=== PATIENT | male | born 1935 | race Caucasian/White ===

== ENCOUNTER → 2016-10-01 | Outpatient (CLI) | payer MEDICARE, BC ==
--- NOTE | 2016-10-01 11:46 | PN ---
DATE OF SERVICE: 10/01/2016 A 81-year-old gentleman who has been followed in the Sleep Center for treatment of obstructive sleep apnea-hypopnea syndrome. Patient had home sleep apnea test at the end of 2015, which showed apnea-hypopnea index 19.3 with oxygen desaturation to 76%. Then he had CPAP titration and it showed that pressure 11 is sufficient for correction of respiratory abnormalities. Patient received new CPAP unit and I checked his CPAP unit today. He is using her equipment 100% for more than 4 hours with a pressure 11 cm of water. He does not use any ramp. Apnea-hypopnea index with the equipment he is 1.3 for the last 2 months, which is perfect. Leak is up to 14 L/min which is in reasonable range. [place] Sleepiness Scale today is 4. MEDICATIONS: Levothyroxine, allopurinol, amlodipine, metoprolol, Benazepril, pravastatin. During physical exam, patient in no distress. BP 159/70, HR 70, RR 16. Weight 293. Temp 97.4, oxygen saturation at room air 95%. HEENT: Oropharynx extremely low soft palate. ABDOMEN: Obese. EXTREMITIES: 1+ ankle edema. LUNGS: Clear. HEART: S1, S2, irregular, slightly decreased amplitude of tones. NECK: Supple. No JVD. Thyroid is not palpable. ABDOMEN: Soft and nontender. Bowel sounds are present. No organomegaly appreciated. WOUND CARE RN: Awake, alert, and oriented x3. Cranial nerves 2 to 7 intact. There is no fasciculation or atrophy noted. No focal deficits observed. IMPRESSION: 1. Obstructive sleep apnea-hypopnea syndrome on control with CPAP at 11 cm of water. Patient demonstrated 100% compliance with treatment benefiting from treatment. 2. Obesity. 3. Hypertension. 4. Swelling of the legs. 5. Status post total knee replacement. 6. Hyperlipidemia. 7. Hypothyroidism. 8. History of anxiety. PLAN: 1. Continue treatment with CPAP every night for the whole night. 2. Losing weight. 3. Sleep hygiene with regular time in bed for at least 8 hours. 4. No driving if feeling any sleepiness. 5. Prescription for all necessary CPAP supplies, including mask, tube, filters. 6. Followup visit in 1 year. Thank you very much for allowing me to participate in the management of your patient. Sincerely, Marco Antonio Myers MD, PhD, FAASM. Diplomat of [employer], Sleep Medicine Board by [employer] of [employer] Medicine Welfare Director of [facility] [place]
== END | disposition home or self-care (01) ==
LOC: SLEEP 10:20
PROVIDERS: ATTEND Internal Medicine
DX: G47.33 Obstructive sleep apnea (adult) (pediatric) (principal); E66.9 Obesity, unspecified; I10 Essential (primary) hypertension; R60.9 Edema, unspecified; Z96.659 Presence of unspecified artificial knee joint; E03.9 Hypothyroidism, unspecified; F41.9 Anxiety disorder, unspecified; Z79.899 Other long term (current) drug therapy

== ENCOUNTER → 2017-09-30 | Outpatient (CLI) | payer MEDICARE, BC ==
--- NOTE | 2017-09-30 11:07 | PN ---
PROGRESS NOTE FOLLOW-UP VISIT DATE OF SERVICE: 09/30/2017 An 82-year-old gentleman had been followed in sleep center for treatment of obstructive sleep apnea-hypopnea syndrome. The patient is on treatment with CPAP for more than 10 years. Continue his treatment successfully every night. Recently he received new CPAP unit. No problem with the usage of the machine with regarding of pressure or humidification. Sometimes mask may go off the nose. He is using Vivar FX nasal pillow mask. I checked his CPAP unit. CPAP pressure 11 cm of water. The patient does not use any ramp. Usage is 100% of the time more than 4 hours, average 8.2 hours. Leak is 12 L/minute, which is normal range. Apnea-hypopnea index for the last month is only 1.2, which is perfect. [place] Sleepiness Scale today is 4, which is normal. MEDICATIONS: Levothyroxine, allopurinol, amlodipine, metoprolol, benazepril, pravastatin. PHYSICAL EXAM: During physical exam, patient in no distress. VITAL SIGNS: BP 155/75, HR 66, RR 16, height 5 feet 9 inches, weight 282.2, which is about 10 pounds less than 1 year ago, BMI 41.6, oxygen saturation room air 96%. HEENT: PERRLA, EOMI. Oropharynx low position of soft palate. NECK: Supple, no JVD. Thyroid is not palpable. LUNGS: Clear to percussion and to auscultation. Good air exchange. No wheezing or rhonchi. HEART: S1, S2 regular. No murmurs, gallops, or rubs. ABDOMEN: Obese. EXTREMITIES: Up to 1+ ankle edema. TRIPLE VALVE MECHANIC: Awake, alert, and oriented X3. Cranial nerves 2 to 7 intact. There is no fasciculation or atrophy. noted. No focal deficits observed. IMPRESSION: 1. Obstructive sleep apnea-hypopnea syndrome, on full control with CPAP at 11 cm of water. Patient demonstrated 100% compliance with treatment and benefitting from treatment. 2. Hypertension. 3. Obesity. Patient lost 10 pounds since previous visit. 4. Status post total knee replacement on the left side. 5. Hyperlipidemia. 6. Hypothyroidism. 7. History of anxiety. PLAN: 1. Continue treatment with CPAP every night. 2. Continue losing weight. 3. Sleep hygiene with regular time in bed for at least 7-1/2 to 8 hours. 4. No driving if feeling sleepiness. 5. Prescription for all necessary CPAP supplies including mask, tube, filters. 6. Follow-up visit in one year or earlier if patient has any problems. Thank you very much for allowing me to participate in management of your patient. Sincerely, Marco Antonio Myers MD, PhD, FAASM Diplomat of [employer] Specialties [employer] Board of Internal Medicine Manager Administrative Services of [facility] [place] MMODL / SENTHILN: [id number] /
== END | disposition home or self-care (01) ==
LOC: SLEEP 09:59
PROVIDERS: ATTEND Internal Medicine
DX: G47.33 Obstructive sleep apnea (adult) (pediatric) (principal); I10 Essential (primary) hypertension; F41.9 Anxiety disorder, unspecified; E66.9 Obesity, unspecified; E78.5 Hyperlipidemia, unspecified; E03.9 Hypothyroidism, unspecified; Z68.41 Body mass index [BMI] 40.0-44.9, adult; Z96.652 Presence of left artificial knee joint; Z79.899 Other long term (current) drug therapy; Z99.89 Dependence on other enabling machines and devices

== ENCOUNTER → 2018-05-12 | Outpatient (CLI) | payer MEDICARE, BC ==
--- NOTE | 2018-05-12 10:54 | US ---
EXAMINATION TYPE: US kidneys/renal and bladder DATE OF EXAM: 05/12/2018 COMPARISON: NONE CLINICAL HISTORY: R94.4 ABN Kidney Function Studies. no symptoms per patient, states kidney went from 48% to 45% in a few days, elderly, obese patient EXAM MEASUREMENTS: Right Kidney: 10.7 x 4.3 x 5.4cm Left Kidney: 11.0 x 4.1 x 6.7 cm Right Kidney: No hydronephrosis or masses seen Left Kidney: No hydronephrosis or masses seen Bladder: wnl Bilateral Jets seen: only the left There is no evidence for hydronephrosis at this point in time. No nephrolithiasis is seen. No nate s are identified on images saved. Some cortical thinning is present bilaterally. The urinary bladder is anechoic. Distal left ureteral jet is seen. IMPRESSION: No hydronephrosis is evident bilaterally.
== END | disposition home or self-care (01) ==
LOC: RADUSWWP 09:04
PROVIDERS: ATTEND Family Medicine
DX: R94.4 Abnormal results of kidney function studies (principal)
CPT/HCPCS: 76770

== ENCOUNTER → 2019-09-21 | Outpatient (CLI) | payer MEDICARE, BC ==
--- NOTE | 2019-09-21 11:12 | SFUN ---
SLEEP CENTER FOLLOW UP NOTE DATE OF SERVICE: 09/21/2019 This 84-year-old gentleman had been followed in the Sleep Center for treatment of obstructive sleep apnea-hypopnea syndrome. The patient successfully continuing to use his CPAP equipment every night for the whole night without significant problems related to mask fitting, pressure or humidification. No snoring with the machine. He is getting all his supplies in time. [place] Sleepiness Scale today is 4, which is normal. MEDICATIONS: Pravastatin, amlodipine, benazepril, hydralazine, metoprolol, allopurinol, furosemide, levothyroxine, vitamin D3, aspirin, saw palmetto, Tylenol. I checked the patient CPAP unit. CPAP pressure is 11 cm of water. Usage is 30 out of 30 nights for more than 4 hours with average usage 8.4 hours, which is great compliance. Leak 12 L/minute, which is normal range. Apnea-hypopnea index 2.7, which is perfect. PHYSICAL EXAMINATION: During physical exam, patient in no distress. VITAL SIGNS: BP 139/61, HR 64, RR 16, height 5 feet 10 inches, weight 295.2, body mass index 42.3, which is 10 pounds more than during the visit one year ago, temperature 97.8, oxygen saturation at room air 95%. HEENT: PERRLA, EOMI. Oropharynx extremely low position of soft palate. Mallampati 4. NECK: Supple, no JVD. Thyroid is not palpable. LUNGS: Clear to percussion and to auscultation. Good air exchange. No wheezing or rhonchi. HEART: S1, S2 regular. No murmurs, gallops, or rubs. ABDOMEN: Obese. EXTREMITIES: No clubbing or cyanosis. REALTIME REPORTER: Awake, alert, and oriented X3. Cranial nerves 2 to 7 intact. There is no fasciculation or atrophy. noted. No focal deficits observed. IMPRESSION: 1. Obstructive sleep apnea-hypopnea syndrome. Patient demonstrated 100% compliance with treatment. on full control with CPAP at 11 cm of water. 2. Obesity. Patient increased weight of 10 pounds. 3. Hypertension. 4. Status post total left knee replacement. 5. Hypothyroidism. 6. Hyperlipidemia. 7. History of anxiety. PLAN: 1. Patient will continue to use CPAP equipment every night for the whole night with the same level of pressure. 2. Losing weight. 3. I will maintain all necessary prescriptions for CPAP supplies including mask, tube, filters. 4. Precautions related to driving. No driving if feeling sleepiness. 5. Follow-up visit in 1 year or earlier if patient has any problems. Thank you very much for allowing me to participate in management of your patient. Sincerely, Marco Antonio Myers MD, PhD, FAASM Diplomat of [employer] Specialties [employer] Board of Internal Medicine Picker Feeder of [facility] [place] MMODL / SENTHILN: [id number] /
== END | disposition home or self-care (01) ==
LOC: SLEEP 09:58
PROVIDERS: ATTEND Internal Medicine
DX: G47.33 Obstructive sleep apnea (adult) (pediatric) (principal); E66.9 Obesity, unspecified; I10 Essential (primary) hypertension; E03.9 Hypothyroidism, unspecified; E78.5 Hyperlipidemia, unspecified; Z96.652 Presence of left artificial knee joint; Z99.89 Dependence on other enabling machines and devices; Z86.59 Personal history of other mental and behavioral disorders; Z68.41 Body mass index [BMI] 40.0-44.9, adult; Z79.82 Long term (current) use of aspirin; Z79.899 Other long term (current) drug therapy

== ENCOUNTER → 2020-09-26 | Outpatient (CLI) | payer MEDICARE, BC ==
--- NOTE | 2020-09-26 11:47 | SFUN ---
SLEEP CENTER FOLLOW UP NOTE DATE OF SERVICE: 09/26/2020 This 85-year-old gentleman had been followed in Sleep Center for treatment of obstructive sleep apnea-hypopnea syndrome. Patient continued to use his CPAP equipment every night for the whole night getting his supplies less than before according to patient. [place] Sleepiness Scale today is 3, which is normal. I checked patient's CPAP unit. CPAP pressure is 11 cm of water. Usage is 30 out of 30 nights for more than 4 hours with average usage 8.7 hours per night. Leak is 11 L/minute. Apnea-hypopnea index is only 1.7, which is perfect. MEDICATIONS: Pravastatin 80 mg once a day, amlodipine 5 mg once a day, benazepril 20 mg once a day, hydralazine 25 mg twice a day, metoprolol 50 mg twice a day, Allopurinol 300 mg once a day, furosemide 20 mg once a day, levothyroxine 50 mcg once a day, vitamin D3, saw palmetto. PHYSICAL EXAMINATION: GENERAL: Patient in no distress. VITAL SIGNS: BP 121/74, HR 68, RR 15, height 5 feet 10-1/4 inches, weight 297.8 pounds, BMI 42.4, temperature 98.0, oxygen saturation at room air 95%. HEENT: PERRLA, EOMI. Oropharynx extremely low position of soft palate. Mallampati 4. NECK: Supple, no JVD. Thyroid is not palpable. LUNGS: Clear to percussion and to auscultation. Good air exchange. No wheezing or rhonchi. HEART: S1, S2 regular. No murmurs, gallops, or rubs. ABDOMEN: Obese. EXTREMITIES: No clubbing or cyanosis. DIRECTOR FIXED INCOME: Awake, alert, and oriented X3. Cranial nerves 2 to 7 intact. There is no fasciculation or atrophy. noted. No focal deficits observed. IMPRESSION: 1. Obstructive sleep apnea-hypopnea syndrome. Patient demonstrated 100% compliance with treatment, benefitting with treatment on CPAP. 2. Obesity. 3. Hypertension. 4. Status post total left knee replacement. 5. Hypothyroidism. 6. Hyperlipidemia. 7. History of anxiety. PLAN: 1. Patient will continue to use PAP equipment every night for the whole night. 2. Sleep hygiene with regular time in bed for at least 7-1/2 to 8 hours. 3. Precautions related to driving. No driving if feeling sleepiness. 4. I will maintain all necessary prescription for PAP supplies including mask, tube, filters. 5. Watching weight. 6. No driving if feeling sleepiness. 7. Follow-up visit in 6 months or earlier if patient has any problems. Thank you very much for allowing me to participate in management of your patient. Sincerely, Marco Antonio Myers MD, PhD, FAASM Diplomat of [employer] Board of Medical Specialties Finnish Board of Internal Medicine Oil [employer] And Pipe Tester of [facility] [place] MMODL / IJN: [id number] /
== END | disposition home or self-care (01) ==
LOC: SLEEP 09:54
PROVIDERS: ATTEND Internal Medicine
DX: G47.33 Obstructive sleep apnea (adult) (pediatric) (principal); E66.9 Obesity, unspecified; I10 Essential (primary) hypertension; E78.5 Hyperlipidemia, unspecified; Z96.652 Presence of left artificial knee joint; E03.9 Hypothyroidism, unspecified; Z99.89 Dependence on other enabling machines and devices; Z79.899 Other long term (current) drug therapy; Z79.890 Hormone replacement therapy; Z86.59 Personal history of other mental and behavioral disorders

== ENCOUNTER → 2021-05-15 | Outpatient (CLI) | payer MEDICARE, BC ==
--- NOTE | 2021-05-15 11:22 | SFUN ---
SLEEP CENTER FOLLOW UP NOTE DATE OF SERVICE: 05/15/2021 This 85-year-old gentleman has been followed in Sleep Center for treatment of obstructive sleep apnea-hypopnea syndrome. Patient continues to use his CPAP equipment every night for the whole night. He complains of feeling dryness in the mouth sometimes in the morning. He is using a Vivar FX nasal pillow mask and he agreed that he probably opens his mouth during sleep. He has a chinstrap, but he does not use it. I checked his CPAP unit. Pressure is 11 cm of water. Usage is 100% of nights for more than 4 hours, average 8.2 hours per night. Leak is 19 L/minute. Apnea-hypopnea index is 1.5, which is absolutely normal. MEDICATIONS: 1. Pravastatin 80 mg once a day. 2. Amlodipine 5 mg once a day. 3. Benazepril 20 mg once a day. 4. Hydralazine 25 mg twice a day. 5. Metoprolol 50 mg twice a day. 6. Allopurinol 300 mg once a day. 7. Furosemide 20 mg twice a day. 8. Levothyroxine 50 mcg once a day. PHYSICAL EXAMINATION: GENERAL: Pleasant patient in no distress. VITAL SIGNS: BP 157/71, HR 60, RR 18, height 5 feet 10 inches, weight 295 pounds. The patient lost 2 pounds compared to the previous visit. Body mass index 42.3, temperature 96.9, oxygen saturation at room air 95%. HEENT: PERRLA, EOMI, evaluation of oropharynx showed tongue protrudes midline. Extremely low position of soft palate; Mallampati IV. NECK: Supple, no JVD. Thyroid is not palpable. LUNGS: Clear to percussion and to auscultation. Good air exchange. No wheezing or rhonchi. HEART: S1, S2 regular. No murmurs, gallops, or rubs. ABDOMEN: Obese. EXTREMITIES: One plus ankle edema. OR RN: Awake, alert, and oriented X3. Cranial nerves 2 to 7 intact. There is no fasciculation or atrophy. noted. No focal deficits observed. PLAN: 1. We discussed the patient's necessity to use a chinstrap every night. 2. No dryness in the nose. The level of humidity is at 3, which is probably sufficient for the patient. 3. Patient will continue to use PAP equipment every night for the whole night. 4. Sleep hygiene with regular time in bed for at least 7-1/2 to 8 hours. 5. Precautions related to driving. No driving if feeling sleepiness. 6. I will maintain all necessary prescription for PAP supplies including mask, tube, filters. 7. Watching weight. 8. Follow-up visit in 6 months or earlier if patient has any problems. Thank you very much for allowing me to participate in the management of your patient. Sincerely, Marco Antonio Myers MD, PhD, FAASM Diplomat of [place] Board of [employer] Specialties Sleep Medicine Board of [place] Board of Internal Medicine Penal Officer of [facility] [place] MMODL / IJN: [id number] /
== END ==
LOC: SLEEP 10:10
PROVIDERS: ATTEND Internal Medicine
DX: G47.33 Obstructive sleep apnea (adult) (pediatric) (principal); Z99.89 Dependence on other enabling machines and devices

== ENCOUNTER → 2021-11-13 | Outpatient (CLI) | payer MEDICARE, BC ==
--- NOTE | 2021-11-13 12:11 | SFUN ---
SLEEP CENTER FOLLOW UP NOTE DATE OF SERVICE: 11/13/2021 This 86-year-old gentleman has been followed in Sleep Center for treatment of obstructive sleep apnea-hypopnea syndrome. The patient continues to use his CPAP equipment every night for the whole night. No snoring with the machine. [place] Sleepiness Scale today is 3. I checked his CPAP unit. The air filter is in acceptable condition. CPAP pressure is 11 cm of water. Usage is 30/30 nights for more than 4 hours, average 8.4 hours per night. Leak is 18 L/minute. Recently the patient complained of some leak from his mask, but after he replaced his mask he feels okay now. Apnea-hypopnea index is 2.4, which is in normal range. MEDICATIONS: 1. Pravastatin 80 mg once a day. 2. Amlodipine 5 mg once a day. 3. Benazepril 20 mg once a day. 4. Hydralazine 25 mg twice a day. 5. Metoprolol 50 mg twice a day. 6. Allopurinol 300 mg once a day. 7. Furosemide 20 mg two tablets for one day and three tablets every second day. 8. Levothyroxine 50 mcg once a day. PHYSICAL EXAMINATION: GENERAL: Pleasant patient in no distress. VITAL SIGNS: BP 121/53, HR 60, RR 16, weight 295. Height 5 feet 10 inches, temperature 97.8, oxygen saturation at room air 95%. HEENT: PERRLA, EOMI, evaluation of oropharynx showed tongue protrudes midline. Extremely low position of soft palate; Mallampati IV. NECK: Supple, no JVD. Thyroid is not palpable. LUNGS: Clear to percussion and to auscultation. Good air exchange. No wheezing or rhonchi. HEART: S1, S2 regular. No murmurs, gallops, or rubs. ABDOMEN: Obese. EXTREMITIES: One plus ankle edema. WIND TURBINE INSTALLER: Awake, alert, and oriented X3. Cranial nerves 2 to 7 intact. There is no fasciculation or atrophy. noted. No focal deficits observed. IMPRESSIONS: 1. SKYLAR, great compliance with treatment, benefiting from treatment. 2. HTN. 3. Obesity. 4. Hypothyroidism. 5. Hyperlipidemia. 6. History of anxiety. 7. S/p total left knee replacement. PLAN: 1. I again discussed with the patient the necessity of replacing the air filter at least every month. 2. Patient will continue to use PAP equipment every night for the whole night. 3. Sleep hygiene with regular time in bed for at least 7-1/2 to 8 hours. 4. Precautions related to driving. No driving if feeling sleepiness. 5. I will maintain all necessary prescription for PAP supplies including mask, tube, filters. 6. Watching weight. 7. Follow-up visit in 6 months or earlier if patient has any problems. Thank you very much for allowing me to participate in the management of your patient. Sincerely, Marco Antonio Myers MD, PhD, FAASM Diplomat of [place] [employer] of Medical Specialties Sleep Medicine Board of [place] Board of Internal Medicine Parcel Post Order Clerk of [facility] [place] MMODL / SENTHILN: [id number] / JOHNNY
== END ==
LOC: SLEEP 10:08
PROVIDERS: ATTEND Internal Medicine
DX: G47.33 Obstructive sleep apnea (adult) (pediatric) (principal); I10 Essential (primary) hypertension; E66.9 Obesity, unspecified; E03.9 Hypothyroidism, unspecified; E78.5 Hyperlipidemia, unspecified; F41.9 Anxiety disorder, unspecified; Z96.652 Presence of left artificial knee joint; Z79.890 Hormone replacement therapy; Z99.89 Dependence on other enabling machines and devices; Z87.891 Personal history of nicotine dependence

== ENCOUNTER → 2022-05-28 | Outpatient (CLI) | payer MEDICARE, BC ==
--- NOTE | 2022-05-28 12:34 | P.PN ---
Subjective DATE: [] FOLLOW UP VISIT. Patient with obstructive sleep apnea hypopnea syndrome return to sleep center for follow-up visit. Information from previous visit have been reviewed. Patient is using PAP equipment every night for the whole night, getting PAP supplies in time. The patient does not have significant problems with the mask, PAP unit and humidification. [place] sleepiness scale is 2. I checked information from PAP unit. PAP unit pressure 11 cm H2O. Usage is 100 % for more then 4 hours, average 8.2 hours per night. Leak is 28 l/m, which is in acceptable range. Apnea Hypopnea Index is 2.1, which is normal. MEDICATIONS:1. Pravastatin 80 mg once a day 2. Amlodipine 5 mg once a day 3. Benazepril 20 mg once a day 4. Hydralazine 25 mg twice a day 5. Metoprolol 50 mg twice a day 6. Allopurinol 300 mg once a day 7. Furosemide 20 mg twice a day 8. Levothyroxine 50 g once a day During physical exam: GENERAL: A pleasant patient without any distress. VITAL SIGNS: BP 160/67, HR 67, RR 18 , weight 294.8, temperature 97.5, oxygen saturation at room air 96 % . HEENT: PERRLA, EOMI.low position of soft palate, Mallapati 4 . NECK: Supple. No JVD. LUNGS: Clear to percussion and to auscultation. Good air exchange. No wheezing or rhonchi. HEART: S1, S2 regular. ABDOMEN: Soft and nontender.[] EXTREMITIES: No clubbing or cyanosis. HAIR ROOTING MACHINE OPERATOR: Awake, alert, and oriented x3. No focal deficit. Impressions: 1. Obstructive sleep apnea-hypopnea syndrome. Patient demonstrated great compliance with treatment, benefiting from treatment. 2. Hypertension. 3. Obesity. 4. Hypothyroidism. 5. Hyperlipidemia. 6. Status post total left knee replacement. 7. History of anxiety. Plan: 1. Continue using PAP equipment every night for the whole night. 2. To change air filter at least 1-2 times per month. 3. PAP unit should stay lower then position of the head. 4. Advised patient to remove all remaining water from humidifier canister daily and make it dry after each usage. Refill canister with fresh distilled water before each usage. 5. Sleep hygiene with regular time in bed for at least 8 hours. 6. Precautions related to driving. No driving if feel any sleepiness. 7. I will maintain prescription for PAP supplies including mask, tube, filters. 8. Follow up visit in 6 months or earlier if patient has any problems. 9. Watching weight. Thank you very much for allowing me to participate in the management of your patient. Marco Antonio Myers MD, PhD, FAASM. Diplomat of [employer] Board of Sleep Medicine, Sleep Medicine Board by [employer] Board of Internal Medicine It Support Technician of [facility] [place]
== END | disposition home or self-care (01) ==
LOC: SLEEP 10:09
PROVIDERS: ATTEND Internal Medicine
DX: G47.33 Obstructive sleep apnea (adult) (pediatric) (principal); I10 Essential (primary) hypertension; E66.9 Obesity, unspecified; E03.9 Hypothyroidism, unspecified; E78.5 Hyperlipidemia, unspecified; F41.9 Anxiety disorder, unspecified; Z99.89 Dependence on other enabling machines and devices; Z96.652 Presence of left artificial knee joint; Z79.890 Hormone replacement therapy

== ENCOUNTER → 2022-06-19 | Outpatient (CLI) | payer MEDICARE, BC | END | disposition home or self-care (01) | LOC: LABWHC1 07:14 | PROVIDERS: ATTEND Ophthalmology Ophthalmic Plastic and Reconstructive Surgery | DX: Z20.822 Contact with and (suspected) exposure to COVID-19 (principal); D48.5 Neoplasm of uncertain behavior of skin | CPT/HCPCS: U0003; U0005 ==

== ENCOUNTER → 2022-12-10 | Outpatient (CLI) | payer MEDICARE, BC ==
--- NOTE | 2022-12-10 10:56 | P.PN ---
Subjective DATE: 12/10/2022 FOLLOW UP VISIT. Patient with obstructive sleep apnea hypopnea syndrome return to sleep center for follow-up visit. Information from previous visit have been reviewed. Patient is using PAP equipment every night for the whole night, getting PAP supplies in time. The patient does not have significant problems with the mask, PAP unit and humidification. [place] sleepiness scale is 5, which is normal. I checked information from PAP unit and explaining to the patient. PAP unit pressure 11 cm H2O. Usage is 100 % for more then 4 hours, average 9 hours per night. Leak is 25 l/m, which is in acceptable range. Apnea Hypopnea Index is 1.6, which is normal. Air filter cover is broken. MEDICATIONS:1. Pravastatin 80 mg once a day 2. Levothyroxine 50 g once a day 3. Aspirin 81 mg once a day 4. Allopurinol 300 mg once a day 5. Hydralazine 25 mg once a day 6. Furosemide 20 mg 2 tablets once a day 7. Amlodipine 5 mg once a day 8. Benazepril 20 mg once a day During physical exam: GENERAL: A pleasant patient without any distress. VITAL SIGNS: BP 170/71, HR 100, RR 20, weight 285, temperature 97.7, oxygen saturation at room air 95 % . HEENT: PERRLA, EOMI.low position of soft palate, Mallapati 4 . NECK: Supple. No JVD. LUNGS: Clear to percussion and to auscultation. Good air exchange. No wheezing or rhonchi. HEART: S1, S2 regular. ABDOMEN: Soft and nontender. Obese EXTREMITIES: No clubbing or cyanosis. BRAIDER SETTER: Awake, alert, and oriented x3. No focal deficit. Impressions: 1. Obstructive sleep apnea-hypopnea syndrome. Patient demonstrated great compliance with treatment, benefiting from treatment. 2. Obesity, body mass index 42.0, patient lost 9 pounds since previous visit. 3. Hypertension. 4. Hypothyroidism. 5. Hyperlipidemia. 6. History of anxiety. 7. Status post total left knee replacement. Plan: 1. Continue using PAP equipment every night for the whole night. 2. To change air filter at least 1-2 times per month. 3. PAP unit should stay lower then position of the head. 4. Advised patient to remove all remaining water from humidifier canister daily and make it dry after each usage. Refill canister with fresh distilled water before each usage. 5. Sleep hygiene with regular time in bed for at least 8 hours. 6. Precautions related to driving. No driving if feel any sleepiness. 7. I will maintain prescription for PAP supplies including mask, tube, filters. 8. .Watching and losing weight. 9. Follow up visit in 6 months or earlier if patient has any problems. 10. Air filter, is broken, otherwise CPAP unit is working. We will replace CPAP unit is soreness it will be more then 5-year-old. Thank you very much for allowing me to participate in the management of your patient. Marco Antonio Myers MD, PhD, FAASM. Diplomat of [place] Board of Sleep Medicine, Sleep Medicine Board by [place] Board of Internal Medicine Dope Worker of [facility] [place]
== END ==
LOC: SLEEP 10:08
PROVIDERS: ATTEND Internal Medicine
DX: G47.33 Obstructive sleep apnea (adult) (pediatric) (principal); E03.9 Hypothyroidism, unspecified; E66.9 Obesity, unspecified; E78.5 Hyperlipidemia, unspecified; I10 Essential (primary) hypertension; Z68.41 Body mass index [BMI] 40.0-44.9, adult; Z79.899 Other long term (current) drug therapy; Z96.652 Presence of left artificial knee joint; Z99.89 Dependence on other enabling machines and devices; Z79.890 Hormone replacement therapy; Z87.891 Personal history of nicotine dependence
CPT/HCPCS: 99212

== ENCOUNTER → 2023-06-17 | Outpatient (CLI) | payer MEDICARE, BC ==
--- NOTE | 2023-06-17 11:08 | P.PN ---
Subjective DATE: 06/17/2023 FOLLOW UP VISIT. Patient with obstructive sleep apnea hypopnea syndrome return to sleep center for follow-up visit. Information from previous visit have been reviewed. Patient is using PAP equipment every night for the whole night, getting PAP supplies in time. The patient does not have significant problems with the mask, PAP unit and humidification. [place] sleepiness scale is 3, which is normal. I checked information from PAP unit. PAP unit pressure 11 cm H2O. Usage is 100 % for more then 4 hours, average 8.5 hours per night. Leak is 8.1 l/m, which is in acceptable range. Apnea Hypopnea Index is 1.4, which is normal. MEDICATIONS:1. Levothyroxine 50 g once a day 2. Pravastatin 80 mg once a day 3. Allopurinol 300 mg once a day 4. Amlodipine 5 mg once a day 5. Furosemide 40 mg per day 6. Benazepril 20 mg once a day 7. Hydralazine 25 mg 2 times a day During physical exam: GENERAL: A pleasant patient without any distress. VITAL SIGNS: BP 158/75, HR 95, RR 16, weight 297.4, temperature 97.6, oxygen saturation at room air 93 % . HEENT: PERRLA, EOMI.low position of soft palate, Mallapati 4 . NECK: Supple. No JVD. LUNGS: Clear to percussion and to auscultation. Good air exchange. No wheezing or rhonchi. HEART: S1, S2 regular. ABDOMEN: Soft and nontender. Obese EXTREMITIES: No clubbing or cyanosis. CRAB CATCHER: Awake, alert, and oriented x3. No focal deficit. Impressions: 1. Obstructive sleep apnea-hypopnea syndrome. Patient demonstrated great compliance with treatment, benefiting from treatment. 2. Obesity, patient increased his weight on 12 pounds comparing to the previous visit. 3. Hypertension. 4. Hypothyroidism. 5. Status post left knee replacement. 6. Hyperlipidemia. 7. History of anxiety. Plan: 1. Continue using PAP equipment every night for the whole night. 2. To change air filter at least 1-2 times per month. 3. PAP unit should stay lower then position of the head. 4. Advised patient to remove all remaining water from humidifier canister daily and make it dry after each usage. Refill canister with fresh distilled water before each usage. 5. Sleep hygiene with regular time in bed for at least 8 hours. 6. Precautions related to driving. No driving if feel any sleepiness. 7. I will maintain prescription for PAP supplies including mask, tube, filters. 8. Follow up visit in 6 months or earlier if patient has any problems. 9. Watching and losing weight. Thank you very much for allowing me to participate in the management of your patient. Marco Antonio Myers MD, PhD, FAASM. Diplomat of [place] [employer], Sleep Medicine Board by [place] [employer] [facility] [place]
== END ==
LOC: 3 N SLEEP 10:26
PROVIDERS: ATTEND Internal Medicine
DX: G47.33 Obstructive sleep apnea (adult) (pediatric) (principal); I10 Essential (primary) hypertension; E03.9 Hypothyroidism, unspecified; F41.9 Anxiety disorder, unspecified; E66.9 Obesity, unspecified; E78.5 Hyperlipidemia, unspecified; Z79.890 Hormone replacement therapy; Z79.899 Other long term (current) drug therapy; Z96.662 Presence of left artificial ankle joint; Z99.89 Dependence on other enabling machines and devices; Z87.891 Personal history of nicotine dependence
CPT/HCPCS: 99212

== ENCOUNTER 2023-07-22 14:21 | Emergency (ER) | payer MEDICARE, BC ==
[2023-07-22 14:43] VITALS: TEMP 99
[2023-07-22] MEDS ORDERED: VANCOMYCIN IV PER PHARMACY 1 EACH MISC MISCELLANE PRN (15:30)
[2023-07-22] MEDS ORDERED: KETOROLAC 15 MG/ML 1 ML VIAL IVP STA (15:30)
[2023-07-22] MEDS ORDERED: SODIUM CHLORIDE 0.9% 1,000 ML IV STA (15:30)
[2023-07-22] MEDS ORDERED: ACETAMINOPHEN TAB 500 MG TAB PO STA (15:30)
[2023-07-22] MEDS ORDERED: AMPICILLIN-SULBACTAM 3 GM in SODIUM CHLORIDE 0.9% 100 ML IVPB STA (15:30)
[2023-07-22] MEDS ORDERED: DEXAMETHASONE SOD PHOSPHATE 10 MG/ML 1 ML VIAL IVP STA (15:30)
--- NOTE | 2023-07-22 15:33 | ED ---
Eye Problem HPI - General Chief complaint: Recheck/Abnormal Lab/Rx Stated complaint: facial swelling Time Seen by Provider: 07/22/23 15:12 Source: patient, RN notes reviewed, old records reviewed Mode of arrival: ambulatory Limitations: no limitations - History of Present Illness Initial comments: This is a 88-year-old male to the emergency department for evaluation. Patient presents with fever and significant facial swelling which started adjacent to his nose on his right cheek which she thought was just actively but it never did change his now significant swelling to the right side of his face around his right eye. Patient's fever today. She also weakness. chief complaint: eye pain, eye redness, other (Significant right-sided facial swelling) -: days(s) Onset Description: gradual Location: right eye Place: home If Injury: none Eye Symptoms: redness, pain Severity: moderate Severity scale (1-10): 4 If Pain, Quality: aching Consistency: constant Associated Symptoms: none Treatments Prior to Arrival: none - Related Data Home Medications Medication Instructions Recorded Confirmed Furosemide [Lasix] 60 mg PO Q48H 05/31/14 07/28/23 Pravastatin Sodium [Pravachol] 80 mg PO HS 05/31/14 07/28/23 allopurinoL [Zyloprim] 300 mg PO DAILY 05/31/14 07/28/23 amLODIPine [Norvasc] 5 mg PO DAILY 05/31/14 07/28/23 Acetaminophen Tab [Tylenol Tab] 1,250 mg PO BID 07/28/23 07/28/23 Acetaminophen Tab [Tylenol Tab] 500 mg PO DAILY@1400 07/28/23 07/28/23 Aspirin EC [Ecotrin Low Dose] 81 mg PO DAILY 07/28/23 07/28/23 Benazepril HCl 20 mg PO DAILY 07/28/23 07/28/23 Furosemide [Lasix] 40 mg PO Q48H 07/28/23 07/28/23 Levothyroxine Sodium [Synthroid] 50 mcg PO DAILY 07/28/23 07/28/23 Saw [place] 500 mg PO BID 07/28/23 07/28/23 calcitrioL [Calcitriol] 0.25 mcg PO ROY 07/28/23 07/28/23 hydrALAZINE HCL [Apresoline] 50 mg PO TID 07/28/23 07/28/23 Previous Rx's Medication Instructions Recorded Amoxic-Pot Clav 875-125Mg 1 tab PO Q12HR #20 tablet 07/22/23 [Augmentin 875-125] Sulfamethox-Tmp 800-160Mg [Bactrim 2 tab PO BID #40 tab 07/22/23 DS 800-160 mg] Allergies Allergy/AdvReac Type Severity Reaction Status Date / Time No Known Allergies Allergy Verified 07/28/23 18:24 Review of Systems ROS Statement: Those systems with pertinent positive or pertinent negative responses have been documented in the HPI. ROS Other: All systems not noted in ROS Statement are negative. Past Medical History Past Medical History: Hyperlipidemia, Hypertension, Osteoarthritis (OA), Sleep Apnea/CPAP/BIPAP, Thyroid Disorder Additional Past Medical History / Comment(s): 06/03/15 Pt admitted to floor s/p total L knee arthroplasty. Other hx: gout, Najera's palsy, frequent lower leg swelling, states Dr Coffey concerned about kidney function-having some labs rechecked, SKYLAR with CPAP use. History of Any Multi-Drug Resistant Organisms: None Reported Past Surgical History: Joint Replacement Additional Past Surgical History / Comment(s): 06/03/15 Total L knee arthroplasty. Other SX: 2-3 colonoscopies, bilateral cataract removal with lens implants and a yr later laser sx on both eyes, bilateral eyelid sx, vasectomy. Past Anesthesia/Blood Transfusion Reactions: No Reported Reaction Additional Past Anesthesia/Blood Transfusion Reaction / Comment(s): Pt has never recieved blood. Past Psychological History: No Psychological Hx Reported Smoking Status: Never smoker Past Alcohol Use History: Occasional Past Drug Use History: None Reported - Past Family History Mother Family Medical History: Rheumatoid Arthritis (RA) Additional Family Medical History / Comment(s): Mother had numerous joint surgeries. She at age 84 yrs. Sister(s) Family Medical History: Cancer Father Family Medical History: Diabetes Mellitus Additional Family Medical History / Comment(s): Father at age 83yrs. General Exam Limitations: no limitations General appearance: alert, in no apparent distress Head exam: Present: atraumatic, normocephalic, normal inspection Eye exam: Present: normal appearance, PERRL, EOMI, periorbital swelling (Right eye), periorbital tenderness. Absent: scleral icterus, conjunctival injection ENT exam: Present: normal exam, mucous membranes moist Neck exam: Present: normal inspection. Absent: tenderness, meningismus, lymphadenopathy Respiratory exam: Present: normal lung sounds bilaterally. Absent: respiratory distress, wheezes, rales, rhonchi, stridor Cardiovascular Exam: Present: regular rate, normal rhythm, normal heart sounds. Absent: systolic murmur, diastolic murmur, rubs, gallop, clicks GI/Abdominal exam: Present: soft, normal bowel sounds. Absent: distended, tenderness, guarding, rebound, rigid Extremities exam: Present: normal inspection, full ROM, normal capillary refill. Absent: tenderness, pedal edema, joint swelling, calf tenderness Back exam: Present: normal inspection Neurological exam: Present: alert, oriented X3, CN II-XII intact Psychiatric exam: Present: normal affect, normal mood Skin exam: Present: warm, dry, intact, normal color. Absent: rash Course Vital Signs 07/22/23 07/22/23 14:27 18:17 Temperature 99 F Pulse Rate 120 H 110 H Respiratory 22 18 Rate Blood Pressure 179/136 141/74 O2 Sat by Pulse 96 94 L Oximetry - Reevaluation(s) Reevaluation #1: Medical records reviewed Reevaluation #2: Dramatically improving Reevaluation #3: Patient has had questions answered Reevaluation #4: 07/22/23 15:44 Was pt. sent in by a medical professional or institution ([facility], [employer], urgent care, hospital, or long-term...) When possible be specific @ -no Did you speak to anyone other than the patient for history (EMS, parent, family, police, friend...)? What history was obtained from this source @ -no Did you review nursing and triage notes (agree or disagree)? Why? @ -agree Are old charts reviewed (outside hosp., previous admission, EMS record, old EKG, old radiological studies, urgent care reports/EKG's, long-term records)? Report findings @ -yes Differential Diagnosis (chest pain, altered mental status, abdominal pain women, abdominal pain men, vaginal bleeding, weakness, fever, dyspnea, syncope, headache, dizziness, GI bleed, back pain, seizure, CVA, palpatations, mental health, musculoskeletal)? @ -prior EKG interpreted by me (3pts min.). @ -no X-rays interpreted by me (1pt min.). @ -no CT interpreted by me (1pt min.). @ -yes U/S interpreted by me (1pt. min.). @ -no What testing was considered but not performed or refused? (CT, X-rays, U/S, labs)? Why? @ -none What meds were considered but not given or refused? Why? @ -none Did you discuss the management of the patient with other professionals (professionals i.e. DrFrancisco, PA, [employer]CH[employer], lab, RT, psych nurse, pediatric social worker, bridge operator slip, teacher, boating safety officer, nurse case management)? Give summary @ -no Was smoking cessation discussed for >3mins.? @ -no Was critical care preformed (if so, how long)? @ -no Were there social determinants of health that impacted care today? How? (Homel essness, low income, unemployed, alcoholism, drug addiction, transportation, low edu. Level, literacy, decrease access to med. care, retirement, rehab)? @ -none Was there de-escalation of care discussed even if they declined (Discuss DNR or withdrawal of care, Hospice)? DNR status @ -no What co-morbidities impacted this encounter? (DM, HTN, Smoking, COPD, CAD, Cancer, CVA, ARF, Chemo, Hep., AIDS, mental health diagnosis, sleep apnea, morbid obesity)? @ -none Was patient admitted / discharged? Hospital course, mention meds given and route, prescriptions, significant lab abnormalities, going to OR and other pertinent info. @ - 88 male to the emergency department for evaluation of right eye pain and swelling, right eye periorbital cellulitis without significant infection found. Patient is improved here in the erythematous swollen will place on antibiotics and can be discharged home Discharge Undiagnosed new problem with uncertain prognosis? @ -no Drug Therapy requiring intensive monitoring for toxicity (Heparin, Nitro, Insulin, Cardizem)? @ -no Were any procedures done? @ -no Diagnosis/symptom? @ -Right eye periorbital cellulitis Acute, or Chronic, or Acute on Chronic? @ -Acute Uncomplicated (without systemic symptoms) or Complicated (systemic symptoms)? @ -Complicated Side effects of treatment? @ -no Exacerbation, Progression, or Severe Exacerbation? @ -exacerbation Poses a threat to life or bodily function? How? (Chest pain, [place], NH, pneumonia, PE, COPD, DKA, ARF, appy, cholecystitis, CVA, Diverticulitis, Homicidal, Suicidal, threat to staff... and all critical care pts) @ -yes with significant infection Medical Decision Making - Medical Decision Making 88 male to the emergency department for evaluation of right eye pain and swelling, right eye periorbital cellulitis without significant infection found. Patient is improved here in the erythematous swollen will place on antibiotics and can be discharged home - Lab Data Result diagrams: 07/22/23 15:34 07/22/23 15:34 Lab Results 07/22/23 07/22/23 07/22/23 Range/Units 15:34 15:34 15:34 WBC 11.5 H (3.8-10.6) k/uL RBC 4.06 L (4.30-5.90) m/uL Hgb 13.4 (13.0-17.5) gm/dL Hct 39.7 (39.0-53.0) % MCV 97.8 (80.0-100.0) fL MCH 33.1 (25.0-35.0) pg MCHC 33.8 (31.0-37.0) g/dL RDW 13.6 (11.5-15.5) % Plt Count 200 (150-450) k/uL MPV 7.7 Neutrophils % 83 % Lymphocytes % 8 % Monocytes % 6 % Eosinophils % 1 % Basophils % 0 % Neutrophils # 9.5 H (1.3-7.7) k/uL Lymphocytes # 0.9 L (1.0-4.8) k/uL Monocytes # 0.7 (0-1.0) k/uL Eosinophils # 0.1 (0-0.7) k/uL Basophils # 0.0 (0-0.2) k/uL PT 10.5 (10.0-12.5) sec INR 1.0 (<1.2) APTT 23.3 (22.0-30.0) sec Sodium 136 L (137-145) mmol/L Potassium 4.3 (3.5-5.1) mmol/L Chloride 96 L (98-107) mmol/L Carbon Dioxide 25 (22-30) mmol/L Anion Gap 15 mmol/L BUN 42 H (9-20) mg/dL Creatinine 1.48 H (0.66-1.25) mg/dL Est GFR (CKD-EPI)AfAm 49 (>60 ml/min/1.73 sqM) Est GFR (CKD-EPI)NonAf 42 (>60 ml/min/1.73 sqM) Glucose 151 H (74-99) mg/dL Plasma Lactic Acid Willi (0.7-2.0) mmol/L Calcium 9.5 (8.4-10.2) mg/dL Phosphorus 3.3 (2.5-4.5) mg/dL Magnesium 2.0 (1.6-2.3) mg/dL Total Bilirubin 0.8 (0.2-1.3) mg/dL AST 24 (17-59) U/L ALT 18 (4-49) U/L Alkaline Phosphatase 83 (38-126) U/L Total Protein 6.9 (6.3-8.2) g/dL Albumin 4.2 (3.5-5.0) g/dL 07/22/ Range/Units 15:34 WBC (3.8-10.6) k/uL RBC (4.30-5.90) m/uL Hgb (13.0-17.5) gm/dL Hct (39.0-53.0) % MCV (80.0-100.0) fL MCH (25.0-35.0) pg MCHC (31.0-37.0) g/dL RDW (11.5-15.5) % Plt Count (150-450) k/uL MPV Neutrophils % % Lymphocytes % % Monocytes % % Eosinophils % % Basophils % % Neutrophils # (1.3-7.7) k/uL Lymphocytes # (1.0-4.8) k/uL Monocytes # (0-1.0) k/uL Eosinophils # (0-0.7) k/uL Basophils # (0-0.2) k/uL PT (10.0-12.5) sec INR (<1.2) APTT (22.0-30.0) sec Sodium (137-145) mmol/L Potassium (3.5-5.1) mmol/L Chloride (98-107) mmol/L Carbon Dioxide (22-30) mmol/L Anion Gap mmol/L BUN (9-20) mg/dL Creatinine (0.66-1.25) mg/dL Est GFR (CKD-EPI)AfAm (>60 ml/min/1.73 sqM) Est GFR (CKD-EPI)NonAf (>60 ml/min/1.73 sqM) Glucose (74-99) mg/dL Plasma Lactic Acid Willi 1.8 (0.7-2.0) mmol/L Calcium (8.4-10.2) mg/dL Phosphorus (2.5-4.5) mg/dL Magnesium (1.6-2.3) mg/dL Total Bilirubin (0.2-1.3) mg/dL AST (17-59) U/L ALT (4-49) U/L Alkaline Phosphatase (38-126) U/L Total Protein (6.3-8.2) g/dL Albumin (3.5-5.0) g/dL - Radiology Data Radiology results: report reviewed (CT facial bones is significant for cellulitis), image reviewed Disposition Clinical Impression: Facial cellulitis, Periorbital cellulitis of right eye Disposition: HOME SELF-CARE Condition: Good Instructions (If sedation given, give patient instructions): Cellulitis (ED) Prescriptions: Amoxic-Pot Clav 875-125Mg [Augmentin 875-125] 1 tab PO Q12HR #20 tablet Sulfamethox-Tmp 800-160Mg [Bactrim DS 800-160 mg] 2 tab PO BID #40 tab Is patient prescribed a controlled substance at d/c from ED?: No Referrals: Telly Coffey DO [Primary Care Provider] - 1-2 days Time of Disposition: 17:30
[2023-07-22] MEDS ORDERED: VANCOMYCIN 2,000 MG in SODIUM CHLORIDE 0.9% 500 ML 500 ML IVPB STA (15:34)
[2023-07-22 15:49] LABS: Basophils % (A) 0 %; Eosinophils # (A) 0.1 k/uL (0-0.7); Eosinophils % (A) 1 %; HCT 39.7 % (39.0-53.0); HGB 13.4 gm/dL (13.0-17.5); Lymphocytes # (A) 0.9 k/uL (1.0-4.8); Lymphocytes % (A) 8 %; MCH 33.1 pg (25.0-35.0); MCHC 33.8 g/dL (31.0-37.0); MCV 97.8 fL (80.0-100.0); Mean Platelet Volume 7.7; Monocytes # (A) 0.7 k/uL (0-1.0); Monocytes % (A) 6 %; Neutrophils # (A) 9.5 k/uL (1.3-7.7); Neutrophils % (A) 83 %; Platelet Count 200 k/uL (150-450); RBC 4.06 m/uL (4.30-5.90); RDW 13.6 % (11.5-15.5); WBC 11.5 k/uL (3.8-10.6)
[2023-07-22 16:02] LABS: Partial Thromboplastin Time 23.3 sec (22.0-30.0); Prothrombin Time 10.5 sec (10.0-12.5)
[2023-07-22 16:12] LABS: ALT 18 U/L (4-49); AST 24 U/L (17-59); African American GFR (CKD) 49 (>60 ml/min/1.73 sqM); Albumin 4.2 g/dL (3.5-5.0); Alkaline Phosphatase 83 U/L (38-126); Anion Gap 15 mmol/L; Blood Urea Nitrogen 42 mg/dL (9-20); Calcium 9.5 mg/dL (8.4-10.2); Carbon Dioxide 25 mmol/L (22-30); Chloride 96 mmol/L (98-107); Glucose 151 mg/dL (74-99); Non-African American GFR(CKD) 42 (>60 ml/min/1.73 sqM); Phosphorus 3.3 mg/dL (2.5-4.5); Potassium 4.3 mmol/L (3.5-5.1); Sodium 136 mmol/L (137-145); Total Bilirubin 0.8 mg/dL (0.2-1.3); Total Protein 6.9 g/dL (6.3-8.2)
--- NOTE | 2023-07-22 17:06 | CT ---
EXAMINATION TYPE: CT facial bones w con CT DLP: 782.8 mGycm, Automated exposure control for dose reduction was used. DATE OF EXAM: 07/22/2023 4:42 PM COMPARISON: . CLINICAL INDICATION:Male, 88 years old with history of fall; PHH, RT side facial swelling and redness TECHNIQUE: Multiple contrast-enhanced axial CT images were obtained of the facial bones soft tissue a nd bone windows. 80 mL Isovue 300 was mastoid IV. Coronal, axial and sagittal reformatted images were also provided in soft tissue and bone windows and submitted for interpretation. Additional 3-D refo rmatted images were obtained on a separate workstation. FINDINGS: Osseous mineralization appears appropriate. No evidence of destructive lesion. No facial bone fractur e identified. Orbits show no acute abnormalities. Bilateral lens replacements of likely been performed. The globes appear intact. Mandible appears intact and the TMJs normally aligned. Partially seen moderate degenerative changes of the upper cervical spine. Paranasal sinuses are clear. Mastoid air cells are clear. There is some soft tissue swelling suggested along the upper lip and right side of the face anterior to the maxillary sinus. Calcifications of the carotid siphons seen at the skull base. Visualized major intracranial arteries and dural venous sinuses appear opacified. Mild to moderate generalized brain atrophy with associated prominence of the ventricles/CSF spaces. No intracranial hemorrhage is seen. In the right neck inferior to the parotid gland lateral to the mandibular ramus along the anterolater al aspect of the SCM is an enlarged lymph node measuring 3.6 cm craniocaudal and 2.3 x 2.6 cm axially , axial image 20. Other nonenlarged nodes are seen throughout the bilateral neck. No enhancing soft t issue mass is otherwise seen. IMPRESSION: 1. Some soft tissue swelling suggested along the right anterior face and upper lip. 2. No evidence of acute facial bone fracture. 3. Soft tissue density, likely enlarged lymph node in the right neck. This is nonspecific, likely co nsiderations include reactive node, involved by granulomatous disease, or malignant/metastatic. Recom mend clinical correlation and follow-up. This may be amenable to imaging guided biopsy for tissue britany gnosis if clinically warranted.
[2023-07-22] MEDS ORDERED: SULFAMETHOX-TMP 800-160MG 1 EACH TAB PO STA (17:36)
[2023-07-22] MEDS ORDERED: AMOXIC-POT CLAV 875-125MG 1 EACH TAB PO STA (17:36)
[2023-07-22] MEDS ORDERED: AMOXIC-POT CLAV 875MG STARTER PACK 2 TAB BTL PO STA (17:36)
[2023-07-22] MEDS ORDERED: SULFAMETH-TMP DS STARTER PACK 2 TAB BTL PO STA (17:36)
[2023-07-22 18:42] VITALS: BP 141/74; PULSE 110; RESP 18
[2023-07-23] MEDS ORDERED: VANCOMYCIN 2,000 MG in SODIUM CHLORIDE 0.9% 500 ML 500 ML IVPB SCH (18:00)
== END 2023-07-22 18:19 | disposition home or self-care (01) ==
LOC: EC 14:21
DX: L03.213 Periorbital cellulitis (principal); B95.4 Other streptococcus as the cause of diseases classified elsewhere; I10 Essential (primary) hypertension; M10.9 Gout, unspecified; M19.90 Unspecified osteoarthritis, unspecified site; E07.9 Disorder of thyroid, unspecified; E78.5 Hyperlipidemia, unspecified; Z79.82 Long term (current) use of aspirin; Z79.890 Hormone replacement therapy; Z79.899 Other long term (current) drug therapy
CPT/HCPCS: 36415; 80053; 83605; 83735; 84100; 85025; 85610; 85730; 87040; 70487; 99284; 96365; 96375 ×2; 96361; J1100; J0295; J1885; Q9967

== ENCOUNTER 2023-07-28 16:38 | Inpatient (IN) | payer MEDICARE, BC ==
--- NOTE | 2023-07-28 18:19 | CT ---
EXAMINATION TYPE: CT brain cspine wo con CT DLP: combined DLP 1511 mGycm, Automated exposure control for dose reduction was used. DATE OF EXAM: 07/28/2023 5:51 PM COMPARISON: 07/22/2023 CLINICAL INDICATION:Male, 88 years old with history of fall; fall TECHNIQUE: Brain: Multiple axial CT images of the brain were obtained without IV contrast. Cspine: Axial CT images from the skull base to the inferior aspect of T2 we obtained without intraven ous contrast. Coronal and sagittal reformatted images were also reviewed. CT facial with axial imaging with sagittal coronal reformats. FINDINGS: Brain: Extra-axial spaces: No abnormal extra-axial fluid collections. Falx lipoma anteriorly. Ventricular system: Dilatation in proportion to cerebral atrophy. Cerebral parenchyma: Cerebral atrophy. No acute intraparenchymal hemorrhage or mass effect. The durand -white junction is well differentiated. Scattered hypoattenuating areas are seen within the white mat ter. Cerebellum: Unremarkable. Mass effect: No evidence of midline shift. Intracranial vasculature: Atherosclerotic calcifications of the intracranial vessels. Soft tissues: Normal. Calvarium/osseous structures: No depressed skull fracture. Paranasal sinuses and mastoid air cells: Clear. Visualized orbits: Bilateral aphakia Cervical spine: Fracture: None. Osseous structures: Multilevel degenerative disc disease changes with endplate spurring and disc oste ophyte complex's. Vertebral alignment: Grade 1 anterolisthesis of C4 on C5. Spinal canal/Neural Foramina: Disc osteophyte complexes at C5-C7 with at least mild spinal canal sten osis. No evidence for significant neural foraminal stenosis. Neck soft tissues: Similar large right neck lymph node measuring 26 x 20 mm. Other: The airway is patent. The lung apices are clear. Facial:There is no evidence of fracture, subluxation, dislocation, or significant soft tissue swellin g. The orbital contents are unremarkable.The temporal-mandibular joints appear subluxed anteriorly bi laterally and symmetric. Finding likely patient positioning. The visualized portion of the paranasal sinuses appear clear. IMPRESSION: 1. No acute intracranial process. 2. Nonspecific white matter changes, likely secondary to chronic small vessel ischemic disease. 3. No evidence of cervical spine fracture. 4. Moderate to severe multilevel degenerative disc disease grade 1 anterolisthesis of C4 on C5. 5. Persistent right neck enlarged lymph node seen on prior. Clinical correlation advised.
--- NOTE | 2023-07-28 18:24 | XR ---
EXAMINATION TYPE: XR knee complete bilateral DATE OF EXAM: 07/28/2023 6:04 PM CLINICAL INDICATION:Male, 88 years old with history of fall; [facility] COMPARISON: 06/03/2015 TECHNIQUE: XR knee complete bilateral; examined in Frontal, lateral and oblique projections. FINDINGS: Status post total knee arthroplasty changes with hardware in appropriate alignment and in tact. No evidence of fracture. Right knee demonstrates degeneration with osteophyte formation and joint space narrowing on the bright la tibial plateau and the femoral condyles. Remote injury to the tibial tuberosity patellar tendon. No evidence for fracture bilaterally. IMPRESSION: 1. Status post left total knee arthroplasty changes with hardware intact and appropriate alignment. No fractures identified. 2. Right knee moderate to severe degeneration changes most pronounced in the medial knee 3. No evidence of fracture.
[2023-07-28] MEDS ORDERED: SODIUM CHLORIDE 0.9% 500 ML 500 ML IV STA (19:10)
--- NOTE | 2023-07-28 19:16 | ED ---
Fall HPI - General Chief Complaint: Fall Stated Complaint: Fall-head injury-blood thinners Time Seen by Provider: 07/28/23 17:54 Source: patient, family Mode of arrival: ambulatory - History of Present Illness Initial Comments: This patient is an 88-year-old man who presents evaluation after he had a fall at home and then was not able to get back up. The patient states that he was attempting to take his laundry out of the laundry room. He states that he reached for his cane to fast, lost his balance and fell. He landed on bilateral knees and head. He did not lose consciousness. He states that he was just too weak to get back up. The patient states that he crawled across the floor of his home, called his daughter and then was brought here. Patient denies focal wea knlucretia states he was just to generally weak to get up. Patient complains of a little bit of ache to both knees and then headache, related to the fall. No other pains. Patient has not noted fevers. He states that he is being treated for sinus infection with some facial swelling. He has been taking antibiotics and has noted that things have improved. He does continue to have nasal congestion and a little bit of cough. He has not noted fevers. No chest pain. 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 Place Fall Occurred: home Loss of Consciousness: none Prolonged Down Time?: no Symptoms Prior to Fall: none Location: head, face Location - Extremities: Left: Knee, Right: Knee Severity: moderate Quality: dull Associated Symptoms: headache, weakness - Related Data Home Medications Medication Instructions Recorded Confirmed Pravastatin Sodium [Pravachol] 80 mg PO HS 05/31/14 07/28/23 amLODIPine [Norvasc] 5 mg PO DAILY 05/31/14 07/28/23 Acetaminophen Tab [Tylenol] 500 mg PO DAILY@1400 07/28/23 07/28/23 Aspirin EC [Ecotrin Low Dose] 81 mg PO DAILY 07/28/23 07/28/23 Levothyroxine Sodium [Synthroid] 50 mcg PO DAILY 07/28/23 07/28/23 calcitrioL [Calcitriol] 0.25 mcg PO ROY 07/28/23 07/28/23 Previous Rx's Medication Instructions Recorded Acetaminophen Tab [Tylenol] 650 mg PO Q6HR PRN tab 08/03/23 Famotidine [Pepcid] 20 mg PO DAILY #30 tab 08/03/23 Furosemide [Lasix] 40 mg PO DAILY #30 tab 08/03/23 Isosorbide Mononitrate ER [Imdur] 30 mg PO DAILY #30 tab 08/03/23 Mag Hydrox/Al Hydrox/Simeth 15 ml PO Q6HR PRN ml 08/03/23 [Maalox] Metoprolol Tartrate [Lopressor] 25 mg PO BID #60 tab 08/03/23 Simethicone 40 mg/0.6 ml Drops 100 mg PO QID #7 ml 08/03/23 [Mylicon Drops] Sodium Bicarbonate Tab 650 mg PO TID #90 tab 08/03/23 Tamsulosin [Flomax] 0.4 mg PO PC-BRKFST 30 Days #30 cap 08/03/23 hydrALAZINE HCL [Apresoline] 100 mg PO TID 30 Days #180 tab 08/03/23 Allergies Allergy/AdvReac Type Severity Reaction Status Date / Time No Known Allergies Allergy Verified 07/28/23 18:24 Review of Systems ROS Statement: Those systems with pertinent positive or pertinent negative responses have been documented in the HPI. ROS Other: All systems not noted in ROS Statement are negative. Constitutional: Reports: weakness. Denies: fever, chills Eyes: Denies: eye pain, vision change ENT: Reports: congestion. Denies: ear pain, throat pain Respiratory: Reports: cough. Denies: dyspnea, wheezes Cardiovascular: Denies: chest pain, palpitations, edema, syncope Gastrointestinal: Denies: abdominal pain, nausea, vomiting, diarrhea Genitourinary: Denies: dysuria, hematuria Musculoskeletal: Denies: back pain Skin: Denies: rash Neurological: Denies: headache, weakness, numbness, confusion Past Medical History Past Medical History: Hyperlipidemia, Hypertension, Osteoarthritis (OA), Sleep Apnea/CPAP/BIPAP, Thyroid Disorder Additional Past Medical History / Comment(s): 06/03/15 Pt admitted to floor s/p total L knee arthroplasty. Other hx: gout, Najera's palsy, frequent lower leg swelling, states Dr Coffey concerned about kidney function-having some labs rechecked, SKYLAR with CPAP use. History of Any Multi-Drug Resistant Organisms: None Reported Past Surgical History: Joint Replacement Additional Past Surgical History / Comment(s): 06/03/15 Total L knee arthroplasty. Other SX: 2-3 colonoscopies, bilateral cataract removal with lens implants and a yr later laser sx on both eyes, bilateral eyelid sx, vasectomy. Past Anesthesia/Blood Transfusion Reactions: No Reported Reaction Additional Past Anesthesia/Blood Transfusion Reaction / Comment(s): Pt has never recieved blood. Past Psychological History: No Psychological Hx Reported Smoking Status: Never smoker Past Alcohol Use History: Occasional Past Drug Use History: None Reported - Past Family History Mother Family Medical History: Rheumatoid Arthritis (RA) Additional Family Medical History / Comment(s): Mother had numerous joint surgeries. She at age 84 yrs. Sister(s) Family Medical History: Cancer Father Family Medical History: Diabetes Mellitus Additional Family Medical History / Comment(s): Father at age 83yrs. General Exam Limitations: no limitations General appearance: alert, in no apparent distress Head exam: Present: atraumatic, normocephalic Eye exam: Present: normal appearance. Absent: scleral icterus, conjunctival injection Neck exam: Present: normal inspection, full ROM Respiratory exam: Present: rhonchi. Absent: respiratory distress, wheezes, rales, stridor, accessory muscle use Cardiovascular Exam: Present: regular rate, normal rhythm, normal heart sounds. Absent: systolic murmur, diastolic murmur, rubs, gallop GI/Abdominal exam: Present: soft. Absent: distended, tenderness, guarding, rebound, rigid, mass Extremities exam: Present: normal inspection, normal capillary refill. Absent: pedal edema, calf tenderness Back exam: Present: normal inspection. Absent: CVA tenderness (R), CVA tenderness (L), vertebral tenderness Neurological exam: Present: alert, oriented X3, CN II-XII intact. Absent: motor sensory deficit Skin exam: Present: warm, dry, intact, normal color. Absent: rash Course Vital Signs 07/28/23 07/28/23 07/28/23 16:40 18:11 22:37 Temperature 97.4 F L Pulse Rate 93 75 Respiratory 20 22 Rate Blood Pressure 108/60 129/66 129/66 O2 Sat by Pulse 90 L 94 L 95 Oximetry 1107/28/23 07/29/23 22:38 23:00 00:00 Temperature Pulse Rate 72 Respiratory 19 Rate Blood Pressure 146/101 146/101 159/77 O2 Sat by Pulse 95 90 L 94 L Oximetry 07/29/23 07/29/23 07/29/23 01:00 02:00 03:00 Temperature Pulse Rate 102 H Respiratory 24 Rate Blood Pressure 175/81 159/100 170/84 O2 Sat by Pulse 95 94 L 93 L Oximetry 07/29/23 07/29/23 07/29/23 03:15 03:30 04:00 Temperature Pulse Rate 102 H 104 H Respiratory 26 H 24 Rate Blood Pressure 188/100 168/79 168/79 O2 Sat by Pulse 93 L 93 L Oximetry 07/29/23 07/29/23 07/29/23 08:00 09:00 10:00 Temperature Pulse Rate 78 Respiratory 22 Rate Blood Pressure 154/82 154/82 154/82 O2 Sat by Pulse 96 Oximetry 07/29/23 07/29/23 07/29/23 11:00 11:40 12:00 Temperature Pulse Rate 81 Respiratory 16 Rate Blood Pressure 154/82 174/78 174/78 O2 Sat by Pulse 94 L Oximetry 07/29/23 07/29/23 07/29/23 13:00 14:00 15:00 Temperature Pulse Rate Respiratory Rate Blood Pressure 174/78 174/78 174/78 O2 Sat by Pulse Oximetry 07/29/23 07/29/23 07/29/23 16:00 16:43 17:00 Temperature Pulse Rate 95 98 Respiratory 20 20 Rate Blood Pressure 174/78 127/114 127/114 O2 Sat by Pulse 98 96 Oximetry 07/29/23 07/29/23 07/29/23 18:00 19:00 20:00 Temperature Pulse Rate Respiratory Rate Blood Pressure 127/114 127/114 127/114 O2 Sat by Pulse Oximetry 07/29/23 07/29/23 07/29/23 21:00 22:00 22:18 Temperature 97.8 F Pulse Rate 86 Respiratory 14 Rate Blood Pressure 127/114 132/60 132/60 O2 Sat by Pulse 97 Oximetry 07/29/23 07/29/23 07/30/23 23:00 23:48 02:00 Temperature 97.7 F Pulse Rate 97 Respiratory 15 18 Rate Blood Pressure 132/60 O2 Sat by Pulse 94 L Oximetry 07/30/23 07/30/23 07/30/23 09:30 10:00 13:20 Temperature Pulse Rate 100 80 96 Respiratory 18 18 20 Rate Blood Pressure 154/87 148/74 163/84 O2 Sat by Pulse 95 98 95 Oximetry Medical Decision Making - Medical Decision Making The patient had chest x-ray which I interpreted as negative for acute bony injury or infiltrate. The patient had CT of the brain and C-spine which I interpreted as negative for acute bony injury or intracranial hemorrhage. Patient had knee x-ray which I interpreted as negative for acute fracture. Was pt. sent in by a medical professional or institution (, PA, GARNISHMENT SPECIALIST, urgent care, hospital, or assisted...) When possible be specific @ -[No] Did you speak to anyone other than the patient for history (EMS, parent, family, police, friend...)? What history was obtained from this source @ -[No] Did you review nursing and triage notes (agree or disagree)? Why? @ -[I reviewed and agree with nursing and triage notes] Were old charts reviewed (outside hosp., previous admission, EMS record, old EKG, old radiological studies, urgent care reports/EKG's, assisted records)? Report findings @ -[No old charts were reviewed] Differential Diagnosis (chest pain, altered mental status, abdominal pain women, abdominal pain men, vaginal bleeding, weakness, fever, dyspnea, syncope, headache, dizziness, GI bleed, back pain, seizure, CVA, palpatations, mental health, musculoskeletal)? @ -[Differential Weakness: Hypoglycemia, shock, sepsis, hyponatremia, anemia, infection, MS, ETOH, adverse medicine reaction, overdose, stroke, this is not meant to be an all-inclusive list. EKG interpreted by me (3pts min.). @ -[As above] X-rays interpreted by me (1pt min.). @ -[None done] CT interpreted by me (1pt min.). @ -[None done] U/S interpreted by me (1pt. min.). @ -[None done] What testing was considered but not performed or refused? (CT, X-rays, U/S, labs)? Why? @ -[None] What meds were considered but not given or refused? Why? @ -[None] Did you discuss the management of the patient with other professionals (professionals i.e. , PA, GARNISHMENT SPECIALIST, lab, RT, psych nurse, bilingual social worker, director of billing, teacher, protection officer, case management coordinator)? Give summary @ -[No] Was smoking cessation discussed for >3mins.? @ -[No] Was critical care preformed (if so, how long)? @ -[No] Were there social determinants of health that impacted care today? How? (Homelessness, low income, unemployed, alcoholism, drug addiction, transportation, low edu. Level, literacy, decrease access to med. care, fpc, rehab)? @ -[No] Was there de-escalation of care discussed even if they declined (Discuss DNR or withdrawal of care, Hospice)? DNR status @ -[No] What co-morbidities impacted this encounter? (DM, HTN, Smoking, COPD, CAD, Cancer, CVA, ARF, Chemo, Hep., AIDS, mental health diagnosis, sleep apnea, morbid obesity)? @ -[None] Was patient admitted / discharged? Hospital course, mention meds given and route, prescriptions, significant lab abnormalities, going to OR and other pertinent info. @ -[Patient is 88-year-old man here to have evaluation after ground-level fall. He was then subsequently too weak to stand and was brought to hospital by EMS. Since renal function found to be high however no previous labs for comparison. Patient be admitted to probably have further evaluation and probably placement for physical rehabilitation case discussed with admitting physician and there treatment recommendations are incorporated Undiagnosed new problem with uncertain prognosis? @ -[No] Drug Therapy requiring intensive monitoring for toxicity (Heparin, Nitro, Insulin, Cardizem)? @ -[No] Were any procedures done? @ -[No] Diagnosis/symptom? @ -[Fall Acute generalized weakness Renal failure, suspect acute on chronic Acute, or Chronic, or Acute on Chronic? @ -[Acute Uncomplicated (without systemic symptoms) or Complicated (systemic symptoms)? @ -[, Complicated by generalized weakness Side effects of treatment? @ -[No] Exacerbation, Progression, or Severe Exacerbation? @ -[No] Poses a threat to life or bodily function? How? (Chest pain, USA, MS, pneumonia, PE, COPD, DKA, ARF, appy, cholecystitis, CVA, Diverticulitis, Homicidal, Suicidal, threat to staff... and all critical care pts) @ -[No] - Lab Data Result diagrams: 08/03/23 08:20 08/03/23 08:20 Lab Results 07/28/23 07/28/23 07/28/23 Range/Units 19:36 19:36 19:36 WBC 9.3 (3.8-10.6) k/uL RBC 3.79 L (4.30-5.90) m/uL Hgb 12.4 L (13.0-17.5) gm/dL Hct 37.0 L (39.0-53.0) % MCV 97.7 (80.0-100.0) fL MCH 32.7 (25.0-35.0) pg MCHC 33.5 (31.0-37.0) g/dL RDW 13.6 (11.5-15.5) % Plt Count 225 (150-450) k/uL MPV 8.1 Neutrophils % 85 % Lymphocytes % 4 % Monocytes % 6 % Eosinophils % 3 % Basophils % 0 % Neutrophils # 8.0 H (1.3-7.7) k/uL Lymphocytes # 0.4 L (1.0-4.8) k/uL Monocytes # 0.6 (0-1.0) k/uL Eosinophils # 0.3 (0-0.7) k/uL Basophils # 0.0 (0-0.2) k/uL Sodium 135 L (137-145) mmol/L Potassium 4.9 (3.5-5.1) mmol/L Chloride 99 (98-107) mmol/L Carbon Dioxide 19 L (22-30) mmol/L Anion Gap 17 mmol/L BUN 84 H (9-20) mg/dL Creatinine 3.91 H (0.66-1.25) mg/dL Est GFR (CKD-EPI)AfAm 15 (>60 ml/min/1.73 sqM) Est GFR (CKD-EPI)NonAf 13 (>60 ml/min/1.73 sqM) Glucose 121 H (74-99) mg/dL Osmolality (280-301) mosm/kg Plasma Lactic Acid Willi 1.0 (0.7-2.0) mmol/L Calcium 9.0 (8.4-10.2) mg/dL Magnesium 2.8 H (1.6-2.3) mg/dL Total Bilirubin 0.6 (0.2-1.3) mg/dL AST 30 (17-59) U/L ALT 34 (4-49) U/L Alkaline Phosphatase 82 (38-126) U/L Creatine Kinase (55-170) U/L CK-MB (CK-2) (0.0-3.4) ng/mL Troponin I (0.000-0.034) ng/mL NT-Pro-B Natriuret Pep 1040 pg/mL Total Protein 6.6 (6.3-8.2) g/dL Albumin 4.0 (3.5-5.0) g/dL Urine Color Urine Appearance (Clear) Urine pH (5.0-8.0) Ur Specific [place] (1.001-1.035) Urine Protein (Negative) Urine Glucose (UA) (Negative) Urine Ketones (Negative) Urine Blood (Negative) Urine Nitrite (Negative) Urine Bilirubin (Negative) Urine Urobilinogen (<2.0) mg/dL Ur Leukocyte Esterase (Negative) Urine Osmolality (50-1400) mosm/kg SARS-CoV-2 (PCR) (Not Detectd) 07/28/23 07/28/23 07/28/23 Range/Units 19:36 19:36 22:20 WBC (3.8-10.6) k/uL RBC (4.30-5.90) m/uL Hgb (13.0-17.5) gm/dL Hct (39.0-53.0) % MCV (80.0-100.0) fL MCH (25.0-35.0) pg MCHC (31.0-37.0) g/dL RDW (11.5-15.5) % Plt Count (150-450) k/uL MPV Neutrophils % % Lymphocytes % % Monocytes % % Eosinophils % % Basophils % % Neutrophils # (1.3-7.7) k/uL Lymphocytes # (1.0-4.8) k/uL Monocytes # (0-1.0) k/uL Eosinophils # (0-0.7) k/uL Basophils # (0-0.2) k/uL Sodium (137-145) mmol/L Potassium (3.5-5.1) mmol/L Chloride (98-107) mmol/L Carbon Dioxide (22-30) mmol/L Anion Gap mmol/L BUN (9-20) mg/dL Creatinine (0.66-1.25) mg/dL Est GFR (CKD-EPI)AfAm (>60 ml/min/1.73 sqM) Est GFR (CKD-EPI)NonAf (>60 ml/min/1.73 sqM) Glucose (74-99) mg/dL Osmolality 307 H (280-301) mosm/kg Plasma Lactic Acid Willi (0.7-2.0) mmol/L Calcium (8.4-10.2) mg/dL Magnesium (1.6-2.3) mg/dL Total Bilirubin (0.2-1.3) mg/dL AST (17-59) U/L ALT (4-49) U/L Alkaline Phosphatase (38-126) U/L Creatine Kinase 346 H (55-170) U/L CK-MB (CK-2) (0.0-3.4) ng/mL Troponin I 0.039 H* (0.000-0.034) ng/mL NT-Pro-B Natriuret Pep pg/mL Total Protein (6.3-8.2) g/dL Albumin (3.5-5.0) g/dL Urine Color Urine Appearance (Clear) Urine pH (5.0-8.0) Ur Specific [place] (1.001-1.035) Urine Protein (Negative) Urine Glucose (UA) (Negative) Urine Ketones (Negative) Urine Blood (Negative) Urine Nitrite (Negative) Urine Bilirubin (Negative) Urine Urobilinogen (<2.0) mg/dL Ur Leukocyte Esterase (Negative) Urine Osmolality (50-1400) mosm/kg SARS-CoV-2 (PCR) Not Detected (Not Detectd) 07/28/23 07/28/23 07/28/23 Range/Units 22:20 22:24 22:24 WBC (3.8-10.6) k/uL RBC (4.30-5.90) m/uL Hgb (13.0-17.5) gm/dL Hct (39.0-53.0) % MCV (80.0-100.0) fL MCH (25.0-35.0) pg MCHC (31.0-37.0) g/dL RDW (11.5-15.5) % Plt Count (150-450) k/uL MPV Neutrophils % % Lymphocytes % % Monocytes % % Eosinophils % % Basophils % % Neutrophils # (1.3-7.7) k/uL Lymphocytes # (1.0-4.8) k/uL Monocytes # (0-1.0) k/uL Eosinophils # (0-0.7) k/uL Basophils # (0-0.2) k/uL Sodium (137-145) mmol/L Potassium (3.5-5.1) mmol/L Chloride (98-107) mmol/L Carbon Dioxide (22-30) mmol/L Anion Gap mmol/L BUN (9-20) mg/dL Creatinine (0.66-1.25) mg/dL Est GFR (CKD-EPI)AfAm (>60 ml/min/1.73 sqM) Est GFR (CKD-EPI)NonAf (>60 ml/min/1.73 sqM) Glucose (74-99) mg/dL Osmolality (280-301) mosm/kg Plasma Lactic Acid Willi (0.7-2.0) mmol/L Calcium (8.4-10.2) mg/dL Magnesium (1.6-2.3) mg/dL Total Bilirubin (0.2-1.3) mg/dL AST (17-59) U/L ALT (4-49) U/L Alkaline Phosphatase (38-126) U/L Creatine Kinase (55-170) U/L CK-MB (CK-2) 6.7 H (0.0-3.4) ng/mL Troponin I (0.000-0.034) ng/mL NT-Pro-B Natriuret Pep pg/mL Total Protein (6.3-8.2) g/dL Albumin (3.5-5.0) g/dL Urine Color Light Yellow Urine Appearance Clear (Clear) Urine pH 6.0 (5.0-8.0) Ur Specific [place] 1.017 (1.001-1.035) Urine Protein Trace H (Negative) Urine Glucose (UA) Negative (Negative) Urine Ketones Negative (Negative) Urine Blood Negative (Negative) Urine Nitrite Negative (Negative) Urine Bilirubin Negative (Negative) Urine Urobilinogen <2.0 (<2.0) mg/dL Ur Leukocyte Esterase Negative (Negative) Urine Osmolality 447 (50-1400) mosm/kg SARS-CoV-2 (PCR) (Not Detectd) - EKG Data -: EKG Interpreted by Me EKG shows normal: sinus rhythm, intervals (Normal), QRS complexes (Low voltage QRS complexes) Rate: normal (Rate 77) Interpretation: other (Underlying rhythm) Disposition Clinical Impression: Fall, Acute renal failure Disposition: ADMITTED IP TO THIS HOSP Condition: Fair Is patient prescribed a controlled substance at d/c from ED?: No
[2023-07-28 20:07] LABS: ALT 34 U/L (4-49); AST 30 U/L (17-59); African American GFR (CKD) 15 (>60 ml/min/1.73 sqM); Alkaline Phosphatase 82 U/L (38-126); Anion Gap 17 mmol/L; Blood Urea Nitrogen 84 mg/dL (9-20); Carbon Dioxide 19 mmol/L (22-30); Chloride 99 mmol/L (98-107); Glucose 121 mg/dL (74-99); Magnesium 2.8 mg/dL (1.6-2.3); Non-African American GFR(CKD) 13 (>60 ml/min/1.73 sqM); Potassium 4.9 mmol/L (3.5-5.1); Sodium 135 mmol/L (137-145); Total Bilirubin 0.6 mg/dL (0.2-1.3); Total Protein 6.6 g/dL (6.3-8.2)
[2023-07-28 20:10] LABS: Basophils % (A) 0 %; Eosinophils # (A) 0.3 k/uL (0-0.7); Eosinophils % (A) 3 %; HGB 12.4 gm/dL (13.0-17.5); Lymphocytes # (A) 0.4 k/uL (1.0-4.8); Lymphocytes % (A) 4 %; MCH 32.7 pg (25.0-35.0); MCHC 33.5 g/dL (31.0-37.0); MCV 97.7 fL (80.0-100.0); Mean Platelet Volume 8.1; Monocytes # (A) 0.6 k/uL (0-1.0); Monocytes % (A) 6 %; Neutrophils % (A) 85 %; Platelet Count 225 k/uL (150-450); RBC 3.79 m/uL (4.30-5.90); RDW 13.6 % (11.5-15.5); WBC 9.3 k/uL (3.8-10.6)
--- NOTE | 2023-07-28 20:10 | XR ---
EXAMINATION TYPE: XR chest 2V DATE OF EXAM: 07/28/2023 7:53 PM CLINICAL INDICATION:Male, 88 years old with history of Weakness; [facility] COMPARISON: Chest radiographs from 12/09/2011 TECHNIQUE: XR chest 2V Frontal and lateral views of the chest. FINDINGS: Lungs/Pleura: There is no evidence of pleural effusion, focal consolidation, or pneumothorax. Pulmonary vascularity: Unremarkable. Heart/mediastinum: Cardiomediastinal silhouette is enlarged and stable. Musculoskeletal: No acute osseous pathology. IMPRESSION: Low lung volumes with a generalized hazy appearance which could represent atelectasis versus pulmonar y edema correlate with serum BNP.
[2023-07-28 20:15] LABS: NT-Pro-B-Type Natriuretic Pept 1040 pg/mL
[2023-07-28] MEDS ORDERED: MAG HYDROX/AL HYDROX/SIMETH 30 ML CUP PO PRN (22:41)
[2023-07-28] MEDS ORDERED: NALOXONE 0.4 MG/ML 1 ML VIAL IV PRN (22:41)
[2023-07-28] MEDS ORDERED: SODIUM CHLORIDE 0.9% 1,000 ML IV SCH (22:45)
[2023-07-28 23:00] LABS: Appearance,Urine Clear (Clear); Bilirubin,Urine Negative (Negative); Blood,Urine Negative (Negative); Color,Urine Light Yellow; Glucose,Urine (UA) Negative (Negative); Ketones,Urine Negative (Negative); Leukocyte Esterase,Urine Negative (Negative); Nitrite,Urine Negative (Negative); Protein,Urine Trace (Negative); Specific Gravity,Urine 1.017 (1.001-1.035); Urobilinogen,Urine <2.0 mg/dL (<2.0)
[2023-07-28 23:09] LABS: Creatine Kinase 346 U/L (55-170)
[2023-07-29] MEDS ORDERED: LORATADINE 10 MG TAB PO STA (02:52)
[2023-07-29] MEDS ORDERED: LORazepam 2 MG/ML INJ IV STA ×2 (02:53→11:09)
[2023-07-29] MEDS: SODIUM CHLORIDE 0.65% NASAL SPRAY 44 ML BTL NASAL PRN (03:21)
[2023-07-29] MEDS: LEVOTHYROXINE 50 MCG TAB PO SCH (07:07)
[2023-07-29] MEDS: ASPIRIN 81 MG PO SCH (08:16)
[2023-07-29] MEDS: amLODIPine 5 MG TAB PO SCH (08:31)
[2023-07-29] MEDS ORDERED: hydrALAZINE HCL 50 MG TAB PO SCH (09:00)
[2023-07-29] MEDS ORDERED: FAMOTIDINE 20 MG TAB PO SCH (09:00)
[2023-07-29 09:43] LABS: African American GFR (CKD) 19 (>60 ml/min/1.73 sqM); Anion Gap 16 mmol/L; Blood Urea Nitrogen 72 mg/dL (9-20); Carbon Dioxide 17 mmol/L (22-30); Chloride 101 mmol/L (98-107); Glucose 118 mg/dL (74-99); Magnesium 2.7 mg/dL (1.6-2.3); Non-African American GFR(CKD) 16 (>60 ml/min/1.73 sqM); Potassium 4.7 mmol/L (3.5-5.1); Sodium 134 mmol/L (137-145)
--- NOTE | 2023-07-29 10:16 | US ---
EXAMINATION TYPE: US kidneys/renal and bladder DATE OF EXAM: 07/29/2023 COMPARISON: 10/07/22 CLINICAL INDICATION: Male, 88 years old with history of BA and retention; BA and retention. Limited due to body habitus and pt unable to roll onto either side EXAM MEASUREMENTS: Right Kidney: 11.6 x 4.6 x 6.1 cm Left Kidney: 11.5 x 5.0 x 6.5 cm Right Kidney: No hydronephrosis or masses seen Left Kidney: Extremely limited. Scanned from the left side of bed and had to cine back for images. No hydronephrosis or masses seen Bladder: Contracted due to ellison Bilateral Jets seen: Not assessed There is no evidence for hydronephrosis at this point in time. No nephrolithiasis is seen. No nate s are identified. The urinary bladder is anechoic. Bilateral ureteral jets are seen. IMPRESSION: 1. No hydronephrosis or shadowing renal stones. 2. Bladder collapsed around a Ellison catheter and not well evaluated.
[2023-07-29] MEDS ORDERED: hydrALAZINE HCL 20 MG/ML 1 ML VIAL IVP PRN (11:08)
--- NOTE | 2023-07-29 11:13 | P.NPCON ---
History of Present Illness - Reason for Consult acute renal failure, chronic renal failure - History of Present Illness Reason for consultation: Acute kidney injury on chronic kidney disease History of present illness: Patient is a 88-year-old male seen in renal consultation for acute kidney injury on chronic kidney disease. Patient has chronic kidney disease stage IIIB with baseline creatinine 1.6-1.7 secondary to nephrosclerosis. Patient states he developed facial infection a week ago and was started on Bactrim. He was subsequently discharged. Additionally he fell and bumped his head and therefore came back to the hospital. Daughter is present at bedside. She denies history of coronary artery disease. He was noted to have urinary retention and a Gill catheter placed last night with nearly 1 L of urine obtained upon Gill catheter placement. Patient has been nauseous and also complains of loose bowel movements. He does have edema in the lower 70s. He was taking diuretic at home. He was dry heaving as well prior to admission but improved now. He denies hematuria. Creatinine was 3.91 on admission and is 3.24 today. Patient received 1 L bolus of normal saline on admission. Currently he is not receiving any IV fluids. Kidney ultrasound showed no evidence of hydronephrosis. Kidneys normal in size. He denies use of nonsteroidals. Patient states he has borderline diabetes. Vital signs are stable. General: NAD. HEENT: Head exam is unremarkable. LUNGS: No rhonchi or wheezes. HEART: Rate and Rhythm are regular. ABDOMEN: Nontender, distention noted. Obese. EXTREMITITES: 1+ edema. Past Medical History Past Medical History: Hyperlipidemia, Hypertension, Osteoarthritis (OA), Sleep Apnea/CPAP/BIPAP, Thyroid Disorder Additional Past Medical History / Comment(s): 06/03/15 Pt admitted to floor s/p total L knee arthroplasty. Other hx: gout, Najera's palsy, frequent lower leg swelling, states Dr Coffey concerned about kidney function-having some labs rechecked, SKYLAR with CPAP use. History of Any Multi-Drug Resistant Organisms: None Reported Past Surgical History: Joint Replacement Additional Past Surgical History / Comment(s): 06/03/15 Total L knee arthroplasty. Other SX: 2-3 colonoscopies, bilateral cataract removal with lens implants and a yr later laser sx on both eyes, bilateral eyelid sx, vasectomy. Past Anesthesia/Blood Transfusion Reactions: No Reported Reaction Additional Past Anesthesia/Blood Transfusion Reaction / Comment(s): Pt has never recieved blood. Past Psychological History: No Psychological Hx Reported Smoking Status: Never smoker Past Alcohol Use History: Occasional Past Drug Use History: None Reported - Past Family History Mother Family Medical History: Rheumatoid Arthritis (RA) Additional Family Medical History / Comment(s): Mother had numerous joint surger ies. She at age 84 yrs. Sister(s) Family Medical History: Cancer Father Family Medical History: Diabetes Mellitus Additional Family Medical History / Comment(s): Father at age 83yrs. Medications and Allergies Home Medications Medication Instructions Recorded Confirmed Type Furosemide [Lasix] 60 mg PO Q48H 05/31/14 07/28/23 History Pravastatin Sodium [Pravachol] 80 mg PO HS 05/31/14 07/28/23 History allopurinoL [Zyloprim] 300 mg PO DAILY 05/31/14 07/28/23 History amLODIPine [Norvasc] 5 mg PO DAILY 05/31/14 07/28/23 History Amoxic-Pot Clav 875-125Mg 1 tab PO Q12HR #20 tablet 07/22/23 07/28/23 Rx [Augmentin 875-125] Sulfamethox-Tmp 800-160Mg [Bactrim 2 tab PO BID #40 tab 07/22/23 07/28/23 Rx DS 800-160 mg] Acetaminophen Tab [Tylenol Tab] 1,250 mg PO BID 07/28/23 07/28/23 History Acetaminophen Tab [Tylenol Tab] 500 mg PO DAILY@1400 07/28/23 07/28/23 History Aspirin EC [Ecotrin Low Dose] 81 mg PO DAILY 07/28/23 07/28/23 History Benazepril HCl 20 mg PO DAILY 07/28/23 07/28/23 History Furosemide [Lasix] 40 mg PO Q48H 07/28/23 07/28/23 History Levothyroxine Sodium [Synthroid] 50 mcg PO DAILY 07/28/23 07/28/23 History Saw [place] 500 mg PO BID 07/28/23 07/28/23 History calcitrioL [Calcitriol] 0.25 mcg PO ROY 07/28/23 07/28/23 History hydrALAZINE HCL [Apresoline] 50 mg PO TID 07/28/23 07/28/23 History Allergies Allergy/AdvReac Type Severity Reaction Status Date / Time No Known Allergies Allergy Verified 07/28/23 18:24 Physical Exam Vitals: Vital Signs Temp Pulse Resp BP Pulse Ox 07/29/23 08:00 78 22 154/82 96 07/29/23 03:30 104 H 24 168/79 93 L 07/29/23 03:15 102 H 26 H 188/100 93 L 07/29/23 02:00 102 H 24 170/84 95 07/28/23 22:38 72 19 146/101 95 07/28/23 18:11 75 22 129/66 94 L 07/28/23 16:40 97.4 F L 93 20 108/60 90 L Intake and Output 07/28/23 07/29/23 07/29/23 22:59 06:59 14:59 Output Total 800 580 Balance -800 -580 Output: Urine 800 580 Other: Weight 131.542 kg Results - Lab Results Most recent lab results Calcium 9.0 mg/dL (8.4-10.2) 07/29/23 09:21 Magnesium 2.7 mg/dL (1.6-2.3) H 07/29/23 09:21 07/28/23 19:36 07/29/23 09:21 Assessment and Plan Plan: Assessment: 1. Acute kidney injury secondary to urinary retention and use of Bactrim which will impair creatinine secretion. Creatinine 3.91 on admission and is 3.24 today. No hydronephrosis noted on kidney ultrasound. UA fairly benign. 2. Urinary retention. Nearly 1 L of urine obtained with Gill catheter placement on 07/28/2023. 3. Chronic kidney disease stage IIIB with baseline creatinine 1.6-1.8 secondary to nephrosis. 4. Hypertension with chronic kidney disease. 5. Metabolic acidosis secondary to acute kidney injury and GI losses. 6. Chronic kidney disease mineral bone disease maintained on Calcitrol. Plan: Hep-Lock IV fluids. Add Flomax. Maintain Gill catheter. Add oral bicarb. Increase dose of hydralazine. Hold VERNON inhibitor for now. Urology consulted. Thank you for the consultation. I will continue to follow the patient with you during his hospital stay.
[2023-07-29] MEDS: TAMSULOSIN 0.4 MG CAP.ER.24H PO SCH (11:29)
[2023-07-29] MEDS: SODIUM BICARBONATE TAB 650 MG TAB PO SCH ×3 (11:29→21:43)
[2023-07-29] MEDS ORDERED: IOPAMIDOL CONTRAST (ORAL USE) VIAL PO PRN (13:23)
[2023-07-29] MEDS ORDERED: SODIUM CHLORIDE 0.9% 1,000 ML IV SCH (13:30)
[2023-07-29] MEDS: ACETAMINOPHEN TAB 325 MG TAB PO PRN (13:57)
[2023-07-29] MEDS: ACETAMINOPHEN TAB 500 MG TAB PO SCH (14:09)
--- NOTE | 2023-07-29 14:15 | P.GSCN ---
History of Present Illness Consult date: 07/29/23 Reason for Consult: Urinary retention History of present illness: This is an 88-year-old male presented to the hospital with weakness and acute kidney injury. His creatinine was elevated at 3.9, from a baseline of 1.48. Urology is consulted for urinary retention. Patient also residual is elevated at 760 mL, subsequently Ellison catheter was placed. He denies any previous history of urinary retention. Indicates at baseline he is able to void but has noticed some difficulty initiating stream recently. Denies any previous history of UTIs or kidney stones. He underwent a renal bladder ultrasound that showed no evidence of hydronephrosis Review of Systems - Constitutional Reports weakness, Denies chills, Denies fever - EENT Ears, nose, mouth and throat: Denies dysphagia - Cardiovascular Denies chest pain, Denies shortness of breath - Respiratory Denies cough, Denies 7 - Gastrointestinal Reports as per HPI - Genitourinary Denies dysuria, Denies flank pain, Denies hematuria - Neurological Denies headaches, Denies syncope Past Medical History Past Medical History: Hyperlipidemia, Hypertension, Osteoarthritis (OA), Sleep Apnea/CPAP/BIPAP, Thyroid Disorder Additional Past Medical History / Comment(s): 06/03/15 Pt admitted to floor s/p total L knee arthroplasty. Other hx: gout, Najera's palsy, frequent lower leg swelling, states Dr Coffey concerned about kidney function-having some labs rechecked, SKYLAR with CPAP use. History of Any Multi-Drug Resistant Organisms: None Reported Past Surgical History: Joint Replacement Additional Past Surgical History / Comment(s): 06/03/15 Total L knee arthroplasty. Other SX: 2-3 colonoscopies, bilateral cataract removal with lens implants and a yr later laser sx on both eyes, bilateral eyelid sx, vasectomy. Past Anesthesia/Blood Transfusion Reactions: No Reported Reaction Additional Past Anesthesia/Blood Transfusion Reaction / Comm: Pt has never recieved blood. Past Psychological History: No Psychological Hx Reported Smoking Status: Never smoker Past Alcohol Use History: Occasional Past Drug Use History: None Reported - Past Family History Mother Family Medical History: Rheumatoid Arthritis (RA) Additional Family Medical History / Comment(s): Mother had numerous joint surgeries. She at age 84 yrs. Sister(s) Family Medical History: Cancer Father Family Medical History: Diabetes Mellitus Additional Family Medical History / Comment(s): Father at age 83yrs. Medications and Allergies Home Medications Medication Instructions Recorded Confirmed Type Furosemide [Lasix] 60 mg PO Q48H 05/31/14 07/28/23 History Pravastatin Sodium [Pravachol] 80 mg PO HS 05/31/14 07/28/23 History allopurinoL [Zyloprim] 300 mg PO DAILY 05/31/14 07/28/23 History amLODIPine [Norvasc] 5 mg PO DAILY 05/31/14 07/28/23 History Amoxic-Pot Clav 875-125Mg 1 tab PO Q12HR #20 tablet 07/22/23 07/28/23 Rx [Augmentin 875-125] Sulfamethox-Tmp 800-160Mg [Bactrim 2 tab PO BID #40 tab 07/22/23 07/28/23 Rx DS 800-160 mg] Acetaminophen Tab [Tylenol Tab] 1,250 mg PO BID 07/28/23 07/28/23 History Acetaminophen Tab [Tylenol Tab] 500 mg PO DAILY@1400 07/28/23 07/28/23 History Aspirin EC [Ecotrin Low Dose] 81 mg PO DAILY 07/28/23 07/28/23 History Benazepril HCl 20 mg PO DAILY 07/28/23 07/28/23 History Furosemide [Lasix] 40 mg PO Q48H 07/28/23 07/28/23 History Levothyroxine Sodium [Synthroid] 50 mcg PO DAILY 07/28/23 07/28/23 History Saw [place] 500 mg PO BID 07/28/23 07/28/23 History calcitrioL [Calcitriol] 0.25 mcg PO ROY 07/28/23 07/28/23 History hydrALAZINE HCL [Apresoline] 50 mg PO TID 07/28/23 07/28/23 History Allergies Allergy/AdvReac Type Severity Reaction Status Date / Time No Known Allergies Allergy Verified 07/28/23 18:24 Surgical - Exam Vital Signs Temp Pulse Resp BP Pulse Ox 97.4 F L 93 20 108/60 90 L 07/28/23 16:40 07/28/23 16:40 07/28/23 16:40 07/28/23 16:40 07/28/23 16:40 - General no distress, no pain - Eyes normal ocular movement, no pale - ENT normal nares, normal mucosa - Respiratory normal expansion, normal respiratory effort - Abdomen Abdomen: soft, non tender - Psychiatric oriented to time, oriented to person, oriented to place Results - Labs 07/28/23 19:36 07/29/23 09:21 Abnormal Lab Results - Last 24 Hours (Table) 07/28/23 07/28/23 07/28/23 Range/Units 19:36 19:36 19:36 RBC 3.79 L (4.30-5.90) m/uL Hgb 12.4 L (13.0-17.5) gm/dL Hct 37.0 L (39.0-53.0) % Neutrophils # 8.0 H (1.3-7.7) k/uL Lymphocytes # 0.4 L (1.0-4.8) k/uL Sodium 135 L (137-145) mmol/L Carbon Dioxide 19 L (22-30) mmol/L BUN 84 H (9-20) mg/dL Creatinine 3.91 H (0.66-1.25) mg/dL Glucose 121 H (74-99) mg/dL Osmolality (280-301) mosm/kg Magnesium 2.8 H (1.6-2.3) mg/dL Creatine Kinase (55-170) U/L CK-MB (CK-2) (0.0-3.4) ng/mL Troponin I 0.039 H* (0.000-0.034) ng/mL Urine Protein (Negative) 07/28/23 07/28/23 07/28/23 Range/Units 22:20 22:20 22:24 RBC (4.30-5.90) m/uL Hgb (13.0-17.5) gm/dL Hct (39.0-53.0) % Neutrophils # (1.3-7.7) k/uL Lymphocytes # (1.0-4.8) k/uL Sodium (137-145) mmol/L Carbon Dioxide (22-30) mmol/L BUN (9-20) mg/dL Creatinine (0.66-1.25) mg/dL Glucose (74-99) mg/dL Osmolality 307 H (280-301) mosm/kg Magnesium (1.6-2.3) mg/dL Creatine Kinase 346 H (55-170) U/L CK-MB (CK-2) 6.7 H (0.0-3.4) ng/mL Troponin I (0.000-0.034) ng/mL Urine Protein Trace H (Negative) 07/29/23 07/29/23 Range/Units 04:22 09:21 RBC (4.30-5.90) m/uL Hgb (13.0-17.5) gm/dL Hct (39.0-53.0) % Neutrophils # (1.3-7.7) k/uL Lymphocytes # (1.0-4.8) k/uL Sodium 134 L (137-145) mmol/L Carbon Dioxide 17 L (22-30) mmol/L BUN 72 H (9-20) mg/dL Creatinine 3.24 H (0.66-1.25) mg/dL Glucose 118 H (74-99) mg/dL Osmolality (280-301) mosm/kg Magnesium 2.7 H (1.6-2.3) mg/dL Creatine Kinase (55-170) U/L CK-MB (CK-2) (0.0-3.4) ng/mL Troponin I 0.055 H* (0.000-0.034) ng/mL Urine Protein (Negative) Diabetes panel 07/28/23 07/29/23 Range/Units 19:36 09:21 Sodium 135 L 134 L (137-145) mmol/L Potassium 4.9 4.7 (3.5-5.1) mmol/L Chloride 99 101 (98-107) mmol/L Carbon Dioxide 19 L 17 L (22-30) mmol/L BUN 84 H 72 H (9-20) mg/dL Creatinine 3.91 H 3.24 H (0.66-1.25) mg/dL Glucose 121 H 118 H (74-99) mg/dL Calcium 9.0 9.0 (8.4-10.2) mg/dL AST 30 (17-59) U/L ALT 34 (4-49) U/L Alkaline Phosphatase 82 (38-126) U/L Total Protein 6.6 (6.3-8.2) g/dL Albumin 4.0 (3.5-5.0) g/dL Calcium panel 07/28/23 07/29/23 Range/Units 19:36 09:21 Calcium 9.0 9.0 (8.4-10.2) mg/dL Albumin 4.0 (3.5-5.0) g/dL Pituitary panel 07/28/23 07/29/23 Range/Units 19:36 09:21 Sodium 135 L 134 L (137-145) mmol/L Potassium 4.9 4.7 (3.5-5.1) mmol/L Chloride 99 101 (98-107) mmol/L Carbon Dioxide 19 L 17 L (22-30) mmol/L BUN 84 H 72 H (9-20) mg/dL Creatinine 3.91 H 3.24 H (0.66-1.25) mg/dL Glucose 121 H 118 H (74-99) mg/dL Calcium 9.0 9.0 (8.4-10.2) mg/dL Adrenal panel 07/28/23 07/29/23 Range/Units 19:36 09:21 Sodium 135 L 134 L (137-145) mmol/L Potassium 4.9 4.7 (3.5-5.1) mmol/L Chloride 99 101 (98-107) mmol/L Carbon Dioxide 19 L 17 L (22-30) mmol/L BUN 84 H 72 H (9-20) mg/dL Creatinine 3.91 H 3.24 H (0.66-1.25) mg/dL Glucose 121 H 118 H (74-99) mg/dL Calcium 9.0 9.0 (8.4-10.2) mg/dL Total Bilirubin 0.6 (0.2-1.3) mg/dL AST 30 (17-59) U/L ALT 34 (4-49) U/L Alkaline Phosphatase 82 (38-126) U/L Total Protein 6.6 (6.3-8.2) g/dL Albumin 4.0 (3.5-5.0) g/dL Assessment and Plan Assessment: 88-year-old male admitted to the hospital with acute kidney injury creatinine 3.8 from baseline of 1.48. Patient was in retention with a pulse width was ap proximately 60 miles. Ultrasound of his hydronephrosis. His retention is most likely secondary to BPH, no evidence of obstructive uropathy given the lack of hydronephrosis on ultrasound. At this time I recommend keeping the Ellison catheter until his creatinine returns back to baseline. He can have a trial of void once creatinine returns closer to baseline. After Ellison catheter removal please obtain a postvoid residual, if less than 400 mL then no need for ellison reinsertion -Ellison can be removed once acute kidney injury resolves -Continue Flomax
--- NOTE | 2023-07-29 14:44 | CT ---
EXAMINATION: CT ABDOMEN AND PELVIS WITHOUT IV CONTRAST DATE OF EXAMINATION: 07/29/2023. COMPARISON: None available. INDICATION: Acute renal failure. PROCEDURE: Axial CT of the abdomen and pelvis was performed with sagittal and coronal reformatted i mages without contrast enhancement. The exam is limited because some types of pathology may not be ad equately demonstrated due to lack of contrast enhancement. CT dose lowering techniques were used, to include: automated exposure control, adjustment for patient size, and/or use of iterative reconstruct ion. FINDINGS: LOWER CHEST : The visualized lung bases are clear. There are no pleural or pericardial effusions. ABDOMEN: Liver and Biliary system: Normal. Adrenal glands: Normal. Kidneys and ureters: There is area of cortical thinning within the interpolar region of the right ki dney that likely relates to scarring. There are no renal stones, ureteral stones or hydronephrosis. Spleen: Normal. Pancreas: Normal. Gallbladder: Normal. Lymph nodes, Peritoneum and mesentery: There is no mesenteric or retroperitoneal lymphadenopathy. Gastrointestinal tract: There are no dilated loops of bowel or free intraperitoneal air. . There is no evidence of appendicitis. Aorta/IVC: There is moderate vascular calcification throughout the abdominal aorta without evidence of aneurysmal dilation. There is moderate descending colonic and sigmoid colonic diverticulosis with out evidence of diverticulitis. IVC normal. Abdominal wall: Normal. PELVIS: Fluid: There is no free fluid in the pelvis. Lymph Nodes: There is no pelvic or inguinal lymphadenopathy.. Urinary bladder: Bladder is collapsed around a Gill catheter. The prostate is moderately enlarged.. BONES: Scattered degenerative disc and facet changes are seen throughout the spine. There are no acu te osseous abnormalities. ADDITIONAL SIGNIFICANT FINDINGS: None. IMPRESSION: 1. No renal stones or hydronephrosis.. 2. Diverticulosis without evidence of diverticulitis. 3. The prostate is moderately enlarged. 4. Additional incidental and chronic changes noted above.
--- NOTE | 2023-07-29 15:48 | XR ---
EXAMINATION TYPE: XR abdomen 1V DATE OF EXAM: 07/29/2023 COMPARISON: NONE HISTORY: Pain TECHNIQUE: Single supine KUB image of the abdomen is obtained FINDINGS: Distention of small and large bowel which may reflect ileus. Distal obstruction not excluded. Progres s studies are advised. No convincing evidence for pneumoperitoneum. No unusual calcifications. The lung bases are clear. The osseous structures are intact. IMPRESSION: 1. Distention of small and large bowel which may reflect ileus. Distal obstruction not excluded. Pro dilan studies are advised.
[2023-07-29] MEDS: hydrALAZINE HCL 50 MG TAB PO SCH ×2 (16:40→21:43)
[2023-07-29] MEDS ORDERED: LORazepam 2 MG/ML INJ IV PRN (18:55)
[2023-07-29] MEDS: PRAVASTATIN SODIUM 80 MG TAB PO SCH (20:21)
--- NOTE | 2023-07-29 21:44 | HP ---
HISTORY AND PHYSICAL CHIEF COMPLAINTS: Fall and weakness. HISTORY OF PRESENT ILLNESS: This is an 88-year-old gentleman with a past medical history of multiple medical problems, hypertension, hyperlipidemia, recently apparently had an episode of infection for which the patient is taking Bactrim. Currently, the patient complains of weakness, the patient apparently fell and the patient came to [facility]. Creatinine was found to be elevated at 3.9, with IV fluids improved to 3.2. The patient also had a focal infection on the right side recently. The patient also had urinary retention. Abdominal bladder ultrasound was done, which showed no evidence of hydronephrosis. The patient's bladder was collapsed around the Gill catheter. The patient was admitted for further evaluation and treatment. There is no history of any fever, rigor, or chills at this time. PAST MEDICAL HISTORY: History of hypertension, hyperlipidemia, rest of the history and rest of the chart is reviewed. HOME MEDICATIONS: Reviewed include apresoline, dose and rest of medications reviewed. ALLERGIES: None. FAMILY HISTORY: History of rheumatoid arthritis in the family. SOCIAL HISTORY: Occasional alcohol intake. REVIEW OF SYSTEMS: A 14-point review is negative except as mentioned earlier. PHYSICAL EXAMINATION: VITAL SIGNS: Pulse is 81, blood pressure 174/78, respirations 16. HEENT: Conjunctivae normal. Oral mucosa dry. NECK: No jugular venous distention. CARDIOVASCULAR: S1, S2. RESPIRATIONS: Breath sounds diminished at the bases. No rhonchi, no crackles. ABDOMEN: Soft, obese, distention present. LEGS: Bilateral leg edema. NERVOUS SYSTEM: Diffusely weak. LABORATORY DATA: Reviewed. Creatinine 3.4, rest of the labs are reviewed. ASSESSMENT: 1. Acute renal failure with possible acute tubular necrosis or acute interstitial nephritis, drug induced. 2. Troponin 0.055, indeterminate. 3. Weakness and fall. 4. Morbid obesity. 5. Hypertension. 6. Hyperlipidemia. 7. Sleep apnea. 8. History of BPH possibly. RECOMMENDATIONS AND DISCUSSION: This 88-year-old gentleman presented with multiple complex medical issues, will monitor the patient closely. Continue with current medical management and continue symptomatic treatment, otherwise I would recommend cautious IV fluids and monitor creatinine closely. Nephrology has been consulted. Ultrasound results as mentioned earlier. CT of the brain, no evidence of any acute abnormality. We will continue to monitor, medication adjustments. Avoid nephrotoxic medications. Discussed with the patient and family at the bedside. Further recommendations to follow. MMODL / IJN: [id number] /
[2023-07-30] MEDS: LEVOTHYROXINE 50 MCG TAB PO SCH (06:24)
--- NOTE | 2023-07-30 07:15 | P.CRDCN ---
History of Present Illness History of present illness: HISTORY OF PRESENT ILLNESS: This is a 88-year-old male with a past medical history significant for hypertension, hyperlipidemia, carotid stenosis, obstructive sleep apnea, and former nicotine dependence. Patient follows in the office with Dr. Restrepo. We have been asked to see the patient in consultation for abnormal troponins. Patient examined at the bedside. The patient presented to the hospital after sustaining a fall. The patient was noted to have urinary retention and a Gill catheter was placed. It is noted that the patient was started on Bactrim last w [place] for a facial infection. The patient's blood pressures were noted to be elevated with systolics in the 170s and 180s. His hydralazine was increased per nephrology. * EKG reveals sinus mechanism with low voltage QRS. Computer interpretation reveals atrial fibrillation which is incorrect. * Chest xray low lung volumes with generalized hazy appearance could represent atelectasis versus pulmonary edema * Laboratory data: Troponin 0.039. 0.055. * Current home cardiac medications include hydralazine 50 mg 3 times a day, Lasix 60 mg every 48 hours, amlodipine 5 mg daily, Lasix 40 mg every 48 hours, pravastatin 80 mg at night. * Most recent echocardiogram obtained in November 2016 revealed ejection fraction 55% * Patient underwent dobutamine stress test in May 2022 which was negative for ischemia but did reveal fixed inferior wall defect. REVIEW OF SYSTEMS: At the time of my exam: CONSTITUTIONAL: Denies fever or chills. HEENT: Denies blurred vision, vision changes, or eye pain. Denies hemoptysis CARDIOVASCULAR: Denies chest pain. Denies orthopnea. Denies PND. Denies palpitations RESPIRATORY: Denies shortness of breath. GASTROINTESTINAL: Denies abdominal pain. Denies nausea or vomiting. HEMATOLOGIC: Denies bleeding disorders. GENITOURINARY: Denies any blood in urine. SKIN: Denies pruitis. Denies rash. PHYSICAL EXAM: VITAL SIGNS: Reviewed. GENERAL: Well-developed in no acute distress. HEENT: Head is normocephalic. Pupils are equal, round. Sclerae anicteric. Mucous membranes of the mouth are moist. Neck supple. No JVD or thyromegaly LUNGS: Respirations even and unlabored. Lungs essentially clear to auscultation bilaterally. HEART: Regular rate and rhythm. S1 and S2 heard. ABDOMEN: Soft. Nondistended. Nontender. EXTREMITIES: Normal range of motion. No clubbing or cyanosis. Peripheral pulses intact. No lower extremity edema NEUROLOGIC: Awake and alert. Oriented x 3. ASSESSMENT: Status post fall Acute on chronic kidney disease Urinary retention Abnormal troponins, flat, secondary to above, no evidence of acute coronary syndrome Hypertension Hyperlipidemia Carotid stenosis Obstructive sleep apnea Former nicotine dependence PLAN: An acute coronary event has been ruled out Obtain 2-D echo to assess cardiac structure and function Patient's hydralazine has been increased per nephrology Hold VERNON inhibitor Further recommendations pending patient's course Nurse practitioner note has been reviewed by physician. Signing provider agrees with the documented findings, assessment, and plan of care. Past Medical History Past Medical History: Hyperlipidemia, Hypertension, Osteoarthritis (OA), Sleep A pnea/CPAP/BIPAP, Thyroid Disorder Additional Past Medical History / Comment(s): 06/03/15 Pt admitted to floor s/p total L knee arthroplasty. Other hx: gout, Najera's palsy, frequent lower leg swelling, states Dr Coffey concerned about kidney function-having some labs rechecked, SKYLAR with CPAP use. History of Any Multi-Drug Resistant Organisms: None Reported Past Surgical History: Joint Replacement Additional Past Surgical History / Comment(s): 06/03/15 Total L knee arthroplasty. Other SX: 2-3 colonoscopies, bilateral cataract removal with lens implants and a yr later laser sx on both eyes, bilateral eyelid sx, vasectomy. Past Anesthesia/Blood Transfusion Reactions: No Reported Reaction Additional Past Anesthesia/Blood Transfusion Reaction / Comment(s): Pt has never recieved blood. Past Psychological History: No Psychological Hx Reported Smoking Status: Never smoker Past Alcohol Use History: Occasional Past Drug Use History: None Reported - Past Family History Mother Family Medical History: Rheumatoid Arthritis (RA) Additional Family Medical History / Comment(s): Mother had numerous joint surgeries. She at age 84 yrs. Sister(s) Family Medical History: Cancer Father Family Medical History: Diabetes Mellitus Additional Family Medical History / Comment(s): Father at age 83yrs. Medications and Allergies Home Medications Medication Instructions Recorded Confirmed Type Furosemide [Lasix] 60 mg PO Q48H 05/31/14 07/28/23 History Pravastatin Sodium [Pravachol] 80 mg PO HS 05/31/14 07/28/23 History allopurinoL [Zyloprim] 300 mg PO DAILY 05/31/14 07/28/23 History amLODIPine [Norvasc] 5 mg PO DAILY 05/31/14 07/28/23 History Amoxic-Pot Clav 875-125Mg 1 tab PO Q12HR #20 tablet 07/22/23 07/28/23 Rx [Augmentin 875-125] Sulfamethox-Tmp 800-160Mg [Bactrim 2 tab PO BID #40 tab 07/22/23 07/28/23 Rx DS 800-160 mg] Acetaminophen Tab [Tylenol Tab] 1,250 mg PO BID 07/28/23 07/28/23 History Acetaminophen Tab [Tylenol Tab] 500 mg PO DAILY@1400 07/28/23 07/28/23 History Aspirin EC [Ecotrin Low Dose] 81 mg PO DAILY 07/28/23 07/28/23 History Benazepril HCl 20 mg PO DAILY 07/28/23 07/28/23 History Furosemide [Lasix] 40 mg PO Q48H 07/28/23 07/28/23 History Levothyroxine Sodium [Synthroid] 50 mcg PO DAILY 07/28/23 07/28/23 History Saw [place] 500 mg PO BID 07/28/23 07/28/23 History calcitrioL [Calcitriol] 0.25 mcg PO ROY 07/28/23 07/28/23 History hydrALAZINE HCL [Apresoline] 50 mg PO TID 07/28/23 07/28/23 History Allergies Allergy/AdvReac Type Severity Reaction Status Date / Time No Known Allergies Allergy Verified 07/28/23 18:24 Physical Exam Vitals: Vital Signs Temp Pulse Resp BP Pulse Ox 07/29/23 11:40 81 16 174/78 94 L 07/29/23 08:00 78 22 154/82 96 07/29/23 03:30 104 H 24 168/79 93 L 07/29/23 03:15 102 H 26 H 188/100 93 L 07/29/23 02:00 102 H 24 170/84 95 07/28/23 22:38 72 19 146/101 95 07/28/23 18:11 75 22 129/66 94 L 07/28/23 16:40 97.4 F L 93 20 108/60 90 L Intake and Output 07/28/23 07/29/23 07/29/23 22:59 06:59 14:59 Output Total 800 580 Balance -800 -580 Output: Urine 800 580 Other: Weight 131.542 kg Results 07/28/23 19:36 07/29/23 09:21 Cardiac Enzymes 07/28/23 07/28/23 07/28/23 Range/Units 19:36 19:36 22:20 AST 30 (17-59) U/L CK-MB (CK-2) 6.7 H (0.0-3.4) ng/mL Troponin I 0.039 H* (0.000-0.034) ng/mL 07/29/23 Range/Units 04:22 AST (17-59) U/L CK-MB (CK-2) (0.0-3.4) ng/mL Troponin I 0.055 H* (0.000-0.034) ng/mL CBC 07/28/23 Range/Units 19:36 WBC 9.3 (3.8-10.6) k/uL RBC 3.79 L (4.30-5.90) m/uL Hgb 12.4 L (13.0-17.5) gm/dL Hct 37.0 L (39.0-53.0) % Plt Count 225 (150-450) k/uL Comprehensive Metabolic Panel 07/28/23 07/29/23 Range/Units 19:36 09:21 Sodium 135 L 134 L (137-145) mmol/L Potassium 4.9 4.7 (3.5-5.1) mmol/L Chloride 99 101 (98-107) mmol/L Carbon Dioxide 19 L 17 L (22-30) mmol/L BUN 84 H 72 H (9-20) mg/dL Creatinine 3.91 H 3.24 H (0.66-1.25) mg/dL Glucose 121 H 118 H (74-99) mg/dL Calcium 9.0 9.0 (8.4-10.2) mg/dL AST 30 (17-59) U/L ALT 34 (4-49) U/L Alkaline Phosphatase 82 (38-126) U/L Total Protein 6.6 (6.3-8.2) g/dL Albumin 4.0 (3.5-5.0) g/dL Current Medications Generic Name Dose Route Start Last Admin Trade Name Freq PRN Reason Stop Dose Admin Acetaminophen 650 mg 07/28/23 22:41 Acetaminophen Tab 325 Mg Tab PO Q6HR PRN Mild Pain or Fever > 100.5 Acetaminophen 500 mg 07/29/23 14:00 Acetaminophen Tab 500 Mg Tab PO DAILY@1400 JAKOB Al Hydroxide/Mg Hydroxide 15 ml 07/28/23 22:41 Mag Hydrox/Al Hydrox/Simeth 30 Ml Cup PO Q6HR PRN Indigestion Amlodipine Besylate 5 mg 07/29/23 09:00 07/29/23 08:31 Amlodipine 5 Mg Tab PO 5 mg DAILY JAKOB Administration Aspirin 81 mg 07/29/23 09:00 07/29/23 08:16 Aspirin 81 Mg PO 81 mg DAILY JAKOB Administration Calcitriol 0.25 mcg 08/01/23 09:00 Calcitriol 0.25 Mcg Cap PO ROY JAKOB Famotidine 20 mg 07/30/23 09:00 Famotidine 20 Mg Tab PO DAILY JAKOB Hydralazine HCl 100 mg 07/29/23 16:00 Hydralazine Hcl 50 Mg Tab PO TID [facility] Hydralazine HCl 10 mg 07/29/23 11:08 Hydralazine Hcl 20 Mg/Ml 1 Ml Vial IVP Q6HR PRN Blood Pressure - High Levothyroxine Sodium 50 mcg 07/29/23 06:30 07/29/23 07:07 Levothyroxine 50 Mcg Tab PO 50 mcg DAILY@0630 [facility] Administration Naloxone HCl 0.2 mg 07/28/23 22:41 Naloxone 0.4 Mg/Ml 1 Ml Vial IV Q2M PRN Opioid Reversal Pravastatin Sodium 80 mg 07/29/23 21:00 Pravastatin Sodium 80 Mg Tab PO HS JAKOB Sodium Bicarbonate 650 mg 07/29/23 11:15 07/29/23 11:29 Sodium Bicarbonate Tab 650 Mg Tab PO 650 mg TID JAKOB Administration Sodium Chloride 2 spray 07/29/23 02:46 07/29/23 03:21 Sodium Chloride 0.65% Nasal [place] 44 Ml Btl NASAL 2 spray QID PRN Administration Nasal Congestion Tamsulosin HCl 0.4 mg 07/29/23 11:15 07/29/23 11:29 Tamsulosin 0.4 Mg Cap.Er.24h PO 0.4 mg PC-BRKFST JAKOB Administration Intake and Output 07/28/23 07/29/23 07/29/23 22:59 06:59 14:59 Output Total 800 580 Balance -800 -580 Output: Urine 800 580 Other: Weight 131.542 kg 07/28/23 19:36 07/29/23 09:21
[2023-07-30] MEDS: FAMOTIDINE 20 MG TAB PO SCH (09:24)
[2023-07-30] MEDS: SODIUM BICARBONATE TAB 650 MG TAB PO SCH ×3 (09:24→21:10)
[2023-07-30] MEDS: TAMSULOSIN 0.4 MG CAP.ER.24H PO SCH (09:24)
[2023-07-30] MEDS: ASPIRIN 81 MG PO SCH (09:24)
[2023-07-30] MEDS: hydrALAZINE HCL 50 MG TAB PO SCH ×3 (09:25→21:10)
[2023-07-30] MEDS: amLODIPine 5 MG TAB PO SCH (09:25)
--- NOTE | 2023-07-30 09:37 | P.CRDCN ---
History of Present Illness Consult date: 07/30/23 Reason for Consult (text): Elevated troponins History of present illness: HISTORY OF PRESENT ILLNESS: This is a 88-year-old male with a past medical history significant for hypertension, hyperlipidemia, carotid stenosis, obstructive sleep apnea, and former nicotine dependence. Patient follows in the office with Dr. Restrepo. We have been asked to see the patient in consultation for abnormal troponins. Patient is seen today in the emergency center waiting for a bed on the [facility] floor he denies having loss of consciousness. He denies having any chest pain. He has chronic shortness of breath all the time. The patient presented to the hospital after sustaining a fall. The patient was noted to have urinary rete ntion and a Gill catheter was placed and he has been seen by nephrology for acute kidney injury. It is noted that the patient was started on Bactrim last week for a facial infection. The patient's blood pressures were noted to be elevated with systolics in the 170s and 180s. His hydralazine was increased per nephrology. * EKG reveals sinus mechanism with low voltage QRS. Computer interpretation reveals atrial fibrillation which is incorrect. * Chest xray low lung volumes with generalized hazy appearance could represent atelectasis versus pulmonary edema * Laboratory data: Troponin 0.039. 0.055. * Current home cardiac medications include hydralazine 50 mg 3 times a day, Lasix 60 mg every 48 hours, amlodipine 5 mg daily, Lasix 40 mg every 48 hours, pravastatin 80 mg at night. * Most recent echocardiogram obtained in November 2016 revealed ejection fraction 55% * Patient underwent dobutamine stress test in May 2022 which was negative for ischemia but did reveal fixed inferior wall defect. REVIEW OF SYSTEMS: At the time of my exam: CONSTITUTIONAL: Denies fever or chills. HEENT: Denies blurred vision, vision changes, or eye pain. Denies hemoptysis CARDIOVASCULAR: Denies chest pain. Denies orthopnea. Denies PND. Denies palpitations RESPIRATORY: Chronic shortness of breath. GASTROINTESTINAL: Denies abdominal pain. Denies nausea or vomiting. HEMATOLOGIC: Denies bleeding disorders. GENITOURINARY: Denies any blood in urine. SKIN: Denies pruitis. Denies rash. PHYSICAL EXAM: VITAL SIGNS: Reviewed. GENERAL: Well-developed in no acute distress. HEENT: Head is normocephalic. Pupils are equal, round. Sclerae anicteric. Mucous membranes of the mouth are moist. Neck supple. No JVD or thyromegaly LUNGS: Respirations even and unlabored. Lungs essentially clear to auscultation bilaterally. HEART: Regular rate and rhythm. S1 and S2 heard. ABDOMEN: Soft. Nondistended. Nontender. EXTREMITIES: Normal range of motion. No clubbing or cyanosis. Peripheral pulses intact. No lower extremity edema NEUROLOGIC: Awake and alert. Oriented x 3. ASSESSMENT: Status post mechanical fall without loss of consciousness Acute kidney injury and chronic kidney disease Urinary retention requiring Gill catheter placement Abnormal troponins, flat, secondary to above, no evidence of acute coronary syndrome Hypertension Hyperlipidemia Carotid stenosis Obstructive sleep apnea Former nicotine dependence PLAN: An acute coronary event has been ruled out Obtain 2-D echo to assess cardiac structure and function Patient's hydralazine has been increased per nephrology Hold VERNON inhibitor, Lasix If echocardiogram is unremarkable, cardiology will follow on an as-needed basis Further recommendations pending patient's course Nurse practitioner note has been reviewed by physician. Signing provider agrees with the documented findings, assessment, and plan of care. Past Medical History Past Medical History: Hyperlipidemia, Hypertension, Osteoarthritis (OA), Sleep Apnea/CPAP/BIPAP, Thyroid Disorder Additional Past Medical History / Comment(s): 06/03/15 Pt admitted to floor s/p total L knee arthroplasty. Other hx: gout, Najera's palsy, frequent lower leg swelling, states Dr Coffey concerned about kidney function-having some labs rechecked, SKYLAR with CPAP use. History of Any Multi-Drug Resistant Organisms: None Reported Past Surgical History: Joint Replacement Additional Past Surgical History / Comment(s): 06/03/15 Total L knee arthroplasty. Other SX: 2-3 colonoscopies, bilateral cataract removal with lens implants and a yr later laser sx on both eyes, bilateral eyelid sx, vasectomy. Past Anesthesia/Blood Transfusion Reactions: No Reported Reaction Additional Past Anesthesia/Blood Transfusion Reaction / Comment(s): Pt has never recieved blood. Past Psychological History: No Psychological Hx Reported Smoking Status: Never smoker Past Alcohol Use History: Occasional Past Drug Use History: None Reported - Past Family History Mother Family Medical History: Rheumatoid Arthritis (RA) Additional Family Medical History / Comment(s): Mother had numerous joint surgeries. She at age 84 yrs. Sister(s) Family Medical History: Cancer Father Family Medical History: Diabetes Mellitus Additional Family Medical History / Comment(s): Father at age 83yrs. Medications and Allergies Home Medications Medication Instructions Recorded Confirmed Type Furosemide [Lasix] 60 mg PO Q48H 05/31/14 07/28/23 History Pravastatin Sodium [Pravachol] 80 mg PO HS 05/31/14 07/28/23 History allopurinoL [Zyloprim] 300 mg PO DAILY 05/31/14 07/28/23 History amLODIPine [Norvasc] 5 mg PO DAILY 05/31/14 07/28/23 History Amoxic-Pot Clav 875-125Mg 1 tab PO Q12HR #20 tablet 07/22/23 07/28/23 Rx [Augmentin 875-125] Sulfamethox-Tmp 800-160Mg [Bactrim 2 tab PO BID #40 tab 07/22/23 07/28/23 Rx DS 800-160 mg] Acetaminophen Tab [Tylenol Tab] 1,250 mg PO BID 07/28/23 07/28/23 History Acetaminophen Tab [Tylenol Tab] 500 mg PO DAILY@1400 07/28/23 07/28/23 History Aspirin EC [Ecotrin Low Dose] 81 mg PO DAILY 07/28/23 07/28/23 History Benazepril HCl 20 mg PO DAILY 07/28/23 07/28/23 History Furosemide [Lasix] 40 mg PO Q48H 07/28/23 07/28/23 History Levothyroxine Sodium [Synthroid] 50 mcg PO DAILY 07/28/23 07/28/23 History Saw [place] 500 mg PO BID 07/28/23 07/28/23 History calcitrioL [Calcitriol] 0.25 mcg PO ROY 07/28/23 07/28/23 History hydrALAZINE HCL [Apresoline] 50 mg PO TID 07/28/23 07/28/23 History Allergies Allergy/AdvReac Type Severity Reaction Status Date / Time No Known Allergies Allergy Verified 07/28/23 18:24 Physical Exam Vitals: Vital Signs Temp Pulse Resp BP Pulse Ox 07/30/23 02:00 18 07/29/23 23:48 97.7 F 07/29/23 23:00 97 15 132/60 94 L 07/29/23 22:18 97.8 F 86 14 132/60 97 07/29/23 22:00 132/60 07/29/23 21:00 127/114 07/29/23 20:00 127/114 07/29/23 19:00 127/114 07/29/23 18:00 127/114 07/29/23 17:00 98 20 127/114 96 07/29/23 16:43 95 20 127/114 98 07/29/23 16:00 174/78 07/29/23 15:00 174/78 07/29/23 14:00 174/78 07/29/23 13:00 174/78 07/29/23 12:00 174/78 07/29/23 11:40 81 16 174/78 94 L 07/29/23 11:00 154/82 07/29/23 10:00 154/82 07/29/23 09:00 154/82 07/29/23 08:00 78 22 154/82 96 Intake and Output 07/29/23 07/30/23 07/30/23 22:59 06:59 14:59 Output Total 500 900 Balance -500 -900 Output: Urine 500 900 Other: Voiding Method Indwelling Catheter Results 07/28/23 19:36 07/29/23 09:21 Comprehensive Metabolic Panel 07/29/23 Range/Units 09:21 Sodium 134 L (137-145) mmol/L Potassium 4.7 (3.5-5.1) mmol/L Chloride 101 (98-107) mmol/L Carbon Dioxide 17 L (22-30) mmol/L BUN 72 H (9-20) mg/dL Creatinine 3.24 H (0.66-1.25) mg/dL Glucose 118 H (74-99) mg/dL Calcium 9.0 (8.4-10.2) mg/dL Current Medications Generic Name Dose Route Start Last Admin Trade Name Freq PRN Reason Stop Dose Admin Acetaminophen 650 mg 07/28/23 22:41 07/29/23 13:57 Acetaminophen Tab 325 Mg Tab PO 650 mg Q6HR PRN Administration Mild Pain or Fever > 100.5 Acetaminophen 500 mg 07/29/23 14:00 07/29/23 14:09 Acetaminophen Tab 500 Mg Tab PO Not Given DAILY@1400 JAKOB Al Hydroxide/Mg Hydroxide 15 ml 07/28/23 22:41 Mag Hydrox/Al Hydrox/Simeth 30 Ml Cup PO Q6HR PRN Indigestion Amlodipine Besylate 5 mg 07/29/23 09:00 07/29/23 08:31 Amlodipine 5 Mg Tab PO 5 mg DAILY JAKOB Administration Aspirin 81 mg 07/29/23 09:00 07/29/23 08:16 Aspirin 81 Mg PO 81 mg DAILY JAKOB Administration Calcitriol 0.25 mcg 08/01/23 09:00 Calcitriol 0.25 Mcg Cap PO ROY JAKOB Famotidine 20 mg 07/30/23 09:00 Famotidine 20 Mg Tab PO DAILY JAKOB Hydralazine HCl 100 mg 07/29/23 16:00 07/29/23 21:43 Hydralazine Hcl 50 Mg Tab PO 100 mg TID JAKOB Administration Hydralazine HCl 10 mg 07/29/23 11:08 Hydralazine Hcl 20 Mg/Ml 1 Ml Vial IVP Q6HR PRN Blood Pressure - High Iopamidol 30 ml 07/29/23 13:23 Iopamidol Contrast (Oral Use) Vial PO 07/30/23 13:[address] Scan Levothyroxine Sodium 50 mcg 07/29/23 06:30 07/30/23 06:24 Levothyroxine 50 Mcg Tab PO 50 mcg DAILY@0630 JAKOB Administration Lorazepam 0.5 mg 07/29/23 18:55 07/29/23 20:12 Lorazepam 2 Mg/Ml Inj IV 0.5 mg Q6HR PRN Administration Anxiety Naloxone HCl 0.2 mg 07/28/23 22:41 Naloxone 0.4 Mg/Ml 1 Ml Vial IV Q2M PRN Opioid Reversal Pravastatin Sodium 80 mg 07/29/23 21:00 07/29/23 20:21 Pravastatin Sodium 80 Mg Tab PO 80 mg HS JAKOB Administration Sodium Bicarbonate 650 mg 07/29/23 11:15 07/29/23 21:43 Sodium Bicarbonate Tab 650 Mg Tab PO 650 mg TID JAKOB Administration Sodium Chloride 2 spray 07/29/23 02:46 07/29/23 03:21 Sodium Chloride 0.65% Nasal [place] 44 Ml Btl NASAL 2 spray QID PRN Administration Nasal Congestion Tamsulosin HCl 0.4 mg 07/29/23 11:15 07/29/23 11:29 Tamsulosin 0.4 Mg Cap.Er.24h PO 0.4 mg PC-BRKFST JAKOB Administration Intake and Output 07/29/23 07/30/23 07/30/23 22:59 06:59 14:59 Output Total 500 900 Balance -500 -900 Output: Urine 500 900 Other: Voiding Method Indwelling Catheter 07/28/23 19:36 07/29/23 09:21
[2023-07-30 10:52] LABS: Basophils # (A) 0.05 X 10*3/uL (0.00-0.10); Basophils % (A) 0.5 %; Eosinophils # (A) 0.53 X 10*3/uL (0.04-0.35); Eosinophils % (A) 5.3 %; HGB 12.3 g/dL (13.0-17.0); Lymphocytes # (A) 0.76 X 10*3/uL (0.90-5.00); Lymphocytes % (A) 7.5 %; MCH 32.1 pg (27.0-32.0); MCHC 33.2 g/dL (32.0-37.0); MCV 96.6 FL (80.0-97.0); Mean Platelet Volume 10.3 FL (9.5-12.2); Monocytes # (A) 0.94 X 10*3/uL (0.20-1.00); Monocytes % (A) 9.3 %; NRBC Per 100 WBC 0 X 10*3/uL (0.00-0.01); Neutrophils # (A) 7.72 X 10*3/uL (1.80-7.70); Neutrophils % (A) 76.5 %; Platelet Count 226 X 10*3/uL (140-440); RBC 3.83 X 10*6/uL (4.40-5.60); RDW 13.9 % (11.5-14.5); WBC 10.09 X 10*3/uL (4.50-10.00)
[2023-07-30 10:59] LABS: ALT 33 U/L (10-49); AST 44 U/L (14-35); Albumin/Globulin Ratio 1.82 Ratio (1.60-3.17); Alkaline Phosphatase 71 U/L (41-126); BUN/Creat Ratio 21.57 Ratio (12.00-20.00); Blood Urea Nitrogen 64.7 mg/dL (9.0-27.0); Calcium 9.4 mg/dL (8.7-10.3); Carbon Dioxide 18.8 mmol/L (21.6-31.8); Chloride 98 mmol/L (96-109); Globulin 2.2 g/dL (1.6-3.3); Glucose 129 mg/dL (70-110); Magnesium 2.7 mg/dL (1.5-2.4); Potassium 4.6 mmol/L (3.5-5.5); Sodium 131 mmol/L (135-145); Total Bilirubin 0.4 mg/dL (0.3-1.2); Total Protein 6.2 g/dL (6.2-8.2)
[2023-07-30] MEDS ORDERED: IOPAMIDOL CONTRAST (ORAL USE) VIAL PO PRN (11:28)
--- NOTE | 2023-07-30 11:54 | P.GSCN ---
History of Present Illness Consult date: 07/30/23 History of present illness: CHIEF COMPLAINT: Fall HISTORY OF PRESENT ILLNESS: This is a 88-year-old male who presented to the ER after a fall and unable to get back up. Patient also was found to have acute kidney injury with urinary retention. Has Gill cath in place. Surgical service was consulted due to patient's abdominal distention and possible ileus. Patient reports that he is having flatus and small liquidy mucus type stools. He's had diarrhea for 3 days. Denies any prior abdominal surgeries. He did have nausea yesterday but this has now resolved. He does not complain of any abdominal pain. Computed tomography scan without contrast had shown no acute findings. Abdominal x-ray about hour later had shown distention of small and large bowel which may reflect ileus. PAST MEDICAL HISTORY: Hyperlipidemia, Hypertension, Osteoarthritis (OA), Sleep Apnea/CPAP/BIPAP, Thyroid Disorder, chronic kidney disease PAST SURGICAL HISTORY: No prior abdominal surgery MEDICATIONS: See below ALLERGIES: See below SOCIAL HISTORY: No illicit drug use. REVIEW OF SYSTEMS: CONSTITUTIONAL: Denies fever or chills. HEENT: Denies blurred vision, vision changes, or eye pain. Denies hemoptysis CARDIOVASCULAR: Denies chest pain or pressure. RESPIRATORY: No shortness of breath. GASTROINTESTINAL: See HPI for pertinent findings HEMATOLOGIC: Denies bleeding disorders. GENITOURINARY: Denies any blood in urine or increased urinary frequency. SKIN: Denies pruitis. Denies rash. PHYSICAL EXAM: VITAL SIGNS: Reviewed GENERAL: Well-developed in no acute distress. ABDOMEN: Distended. Nontender. Tympanic NEUROLOGIC: Alert and oriented. Cranial nerves II through XII grossly intact. LABORATORY DATA: WBC 10.0 Hgb 12.3 plt 226 Na 131 K 4.6 Cr 3.0 Mildly elevated troponins IMAGING: Computed tomography scan of pelvis no renal stones or hydronephrosis. Diverticulosis without evidence of diverticulitis. Prostate is moderately enlarged. Abdominal x-ray distention of small and large bowel which may reflect ileus. Distal obstruction not excluded. ASSESSMENT: 1. Abdominal distention, possible ileus 2. Acute kidney injury with urinary retention and enlarged prostate 3. Mildly elevated troponins evaluated cardiology 4. History of chronic kidney disease 5. Hyponatremia PLAN: -Computed tomography scan abdomen and pelvis with oral contrast ordered for further evaluation of patient's abdominal distention -Continue to correct acute kidney injury and hyponatremia -Encouraged patient to increase activity level -Downgrade diet to clear liquids -Continue to monitor Thank you for this consultation Physician Optometric Aide note has been reviewed by physician. Signing provider agrees with the documented findings, assessment, and plan of care. Past Medical History Past Medical History: Hyperlipidemia, Hypertension, Osteoarthritis (OA), Sleep Apnea/CPAP/BIPAP, Thyroid Disorder Additional Past Medical History / Comment(s): 06/03/15 Pt admitted to floor s/p total L knee arthroplasty. Other hx: gout, Najera's palsy, frequent lower leg swelling, states Dr Coffey concerned about kidney function-having some labs rechecked, SKYLAR with CPAP use. History of Any Multi-Drug Resistant Organisms: None Reported Past Surgical History: Joint Replacement Additional Past Surgical History / Comment(s): 06/03/15 Total L knee arthroplasty. Other SX: 2-3 colonoscopies, bilateral cataract removal with lens implants and a yr later laser sx on both eyes, bilateral eyelid sx, vasectomy. Past Anesthesia/Blood Transfusion Reactions: No Reported Reaction Additional Past Anesthesia/Blood Transfusion Reaction / Comm: Pt has never recieved blood. Past Psychological History: No Psychological Hx Reported Smoking Status: Never smoker Past Alcohol Use History: Occasional Past Drug Use History: None Reported - Past Family History Mother Family Medical History: Rheumatoid Arthritis (RA) Additional Family Medical History / Comment(s): Mother had numerous joint surgeries. She at age 84 yrs. Sister(s) Family Medical History: Cancer Father Family Medical History: Diabetes Mellitus Additional Family Medical History / Comment(s): Father at age 83yrs. Medications and Allergies Home Medications Medication Instructions Recorded Confirmed Type Furosemide [Lasix] 60 mg PO Q48H 05/31/14 07/28/23 History Pravastatin Sodium [Pravachol] 80 mg PO HS 05/31/14 07/28/23 History allopurinoL [Zyloprim] 300 mg PO DAILY 05/31/14 07/28/23 History amLODIPine [Norvasc] 5 mg PO DAILY 05/31/14 07/28/23 History Amoxic-Pot Clav 875-125Mg 1 tab PO Q12HR #20 tablet 07/22/23 07/28/23 Rx [Augmentin 875-125] Sulfamethox-Tmp 800-160Mg [Bactrim 2 tab PO BID #40 tab 07/22/23 07/28/23 Rx DS 800-160 mg] Acetaminophen Tab [Tylenol Tab] 1,250 mg PO BID 07/28/23 07/28/23 History Acetaminophen Tab [Tylenol Tab] 500 mg PO DAILY@1400 07/28/23 07/28/23 History Aspirin EC [Ecotrin Low Dose] 81 mg PO DAILY 07/28/23 07/28/23 History Benazepril HCl 20 mg PO DAILY 07/28/23 07/28/23 History Furosemide [Lasix] 40 mg PO Q48H 07/28/23 07/28/23 History Levothyroxine Sodium [Synthroid] 50 mcg PO DAILY 07/28/23 07/28/23 History Saw Baldwin 500 mg PO BID 07/28/23 07/28/23 History calcitrioL [Calcitriol] 0.25 mcg PO ROY 07/28/23 07/28/23 History hydrALAZINE HCL [Apresoline] 50 mg PO TID 07/28/23 07/28/23 History Allergies Allergy/AdvReac Type Severity Reaction Status Date / Time No Known Allergies Allergy Verified 07/28/23 18:24 Surgical - Exam Vital Signs Temp Pulse Resp BP Pulse Ox 97.4 F L 93 20 108/60 90 L 07/28/23 16:40 07/28/23 16:40 07/28/23 16:40 07/28/23 16:40 07/28/23 16:40 Results - Labs 07/30/23 07:26 07/30/23 07:26 Abnormal Lab Results - Last 24 Hours (Table) 07/30/23 Range/Units 07:26 WBC 10.09 H (4.50-10.00) X 10*3/uL RBC 3.83 L (4.40-5.60) X 10*6/uL Hgb 12.3 L (13.0-17.0) g/dL Hct 37.0 L (39.6-50.0) % MCH 32.1 H (27.0-32.0) pg Neutrophils # 7.72 H (1.80-7.70) X 10*3/uL Lymphocytes # 0.76 L (0.90-5.00) X 10*3/uL Eosinophils # 0.53 H (0.04-0.35) X 10*3/uL
[2023-07-30] MEDS ORDERED: FUROSEMIDE 10 MG/ML 2 ML VIAL IV ONE (13:06)
--- NOTE | 2023-07-30 13:07 | P.PN ---
Subjective Patient is seen in follow-up for acute kidney injury on chronic kidney disease. Renal function improving. Creatinine 3.0 today. Nonoliguric. Has Gill catheter for urinary retention. Oral intake fair. Doesn't like the food in the hospital. Hemodynamically stable. Vital signs are stable. General: No acute distress. HEENT: Head exam is unremarkable. LUNGS: No audible rhonchi or wheezes. HEART: Rate and Rhythm are regular. ABDOMEN: Nontender. Distention noted. EXTREMITITES: 1+ edema. Objective - Vital Signs Vital signs: Vital Signs Temp 97.7 F 07/29/23 23:48 Pulse 80 07/30/23 10:00 Resp 18 07/30/23 10:00 BP 148/74 07/30/23 10:00 Pulse Ox 98 07/30/23 10:00 FiO2 Intake & Output 07/29/23 07/30/23 07/30/23 18:59 06:59 18:59 Output Total 1080 900 Balance -1080 -900 Output: Urine 1080 900 Other: Voiding Method Indwelling Catheter - Labs CBC & Chem 7: 07/30/23 07:26 07/30/23 07:26 Labs: Abnormal Lab Results - Last 24 Hours (Table) 07/30/23 07/30/23 Range/Units 07:26 07:26 WBC 10.09 H (4.50-10.00) X 10*3/uL RBC 3.83 L (4.40-5.60) X 10*6/uL Hgb 12.3 L (13.0-17.0) g/dL Hct 37.0 L (39.6-50.0) % MCH 32.1 H (27.0-32.0) pg Neutrophils # 7.72 H (1.80-7.70) X 10*3/uL Lymphocytes # 0.76 L (0.90-5.00) X 10*3/uL Eosinophils # 0.53 H (0.04-0.35) X 10*3/uL Sodium 131 L (135-145) mmol/L Carbon Dioxide 18.8 L (21.6-31.8) mmol/L Anion Gap 14.20 H (4.00-12.00) mmol/L BUN 64.7 H (9.0-27.0) mg/dL Creatinine 3.0 H (0.6-1.5) mg/dL Est GFR (CKD-EPI) 20 L (>=60) BUN/Creatinine Ratio 21.57 H (12.00-20.00) Ratio Glucose 129 H (70-110) mg/dL Magnesium 2.7 H (1.5-2.4) mg/dL AST 44 H (14-35) U/L Assessment and Plan Plan: Assessment: 1. Acute kidney injury secondary to urinary retention and use of Bactrim which will impair creatinine secretion. Creatinine 3.91 on admission and is 3.0 today. No hydronephrosis noted on kidney ultrasound. UA fairly benign. 2. Urinary retention. Nearly 1 L of urine obtained with Gill catheter placement on 07/28/2023. On Flomax. Urology following. 3. Chronic kidney disease stage IIIB with baseline creatinine 1.6-1.8 secondary to nephrosclerosis. 4. Hypertension with chronic kidney disease. 5. Metabolic acidosis secondary to acute kidney injury and GI losses. Improving. 6. Chronic kidney disease mineral bone disease maintained on Calcitrol. 7. Hypervolemic hyponatremia. 8. Ileus. Unclear liquid diet. Plan: Maintain Gill catheter. Lasix 20 mg IV once today. Continue to hold VERNON inhibitor for now. Follow-up echocardiogram. Continue to monitor renal function and urine output.
[2023-07-30] MEDS: ACETAMINOPHEN TAB 500 MG TAB PO SCH (13:25)
--- NOTE | 2023-07-30 15:44 | CA ---
Transthoracic Echo Report Name: Giovanny Watson Age: 88 Gender: M : 1935 Exam Date: 07/30/2023 11:20 Exam Location: [facility] Ht (in): 70 Wt (lb): 290 Ordering Physician: Jennyfer Light Attending/Referring Phys: [id number], Kuldeep Concrete Bucket Hooker Silva Guy RDCS Procedure CPT: Indications: Abnormal troponins Cardiac Hx: Technical Quality: Very technically difficult study Contrast 1: Definity Total Dose (mL): 2 Contrast 2: Total Dose (mL): MEASUREMENTS (Male / Female) Normal Values DOPPLER AV Peak Velocity 152.9 cm/s AV Peak Gradient 9.3 mmHg AV Mean Velocity 118.4 cm/s AV Mean Gradient 6.2 mmHg AV Velocity Time Integral 27.5 cm LVOT Peak Velocity 91.0 cm/s LVOT Peak Gradient 3.3 mmHg LVOT Velocity Time Integral 18.6 cm MV Area PHT 6.6 cm??? Mitral E Point Velocity 111.8 cm/s Mitral A Point Velocity 0.0 cm/s Mitral E to A Ratio 09750.1 MV Deceleration Time 114.2 ms FINDINGS Left Ventricle Left ventricle not well visualized. No obvious regional wall motion abnormalities. Left ventricular ejection fraction is estimated at 50-55 %. Right Ventricle Right ventricle not well visualized. Right Atrium Right atrium not well visualized. Left Atrium Left atrium not well visualized. Mitral Valve No mitral regurgitation. No mitral stenosis. Aortic Valve No aortic valve stenosis or regurgitation. Tricuspid Valve Tricuspid valve not well visualized. Pulmonic Valve Pulmonic valve not well visualized. Pericardium No pericardial effusion. Aorta Aortic root and proximal ascending aorta not well visualized. CONCLUSIONS Technically suboptimal study secondary to poor echo windows Endocardial visualization was enhanced with contrast agent Left ventricular function and wall motion are normal Previewed by: Dr. Hany Restrepo MD (Electronically Signed) Final Date: 30 July 2023 15:43
--- NOTE | 2023-07-30 17:05 | PN ---
PROGRESS NOTE DATE OF SERVICE: 07/30/2023 SUBJECTIVE: This is an 88-year-old gentleman, who was admitted with acute renal failure, possibly multifactorial, also some diarrhea. Also, the patient has some abdominal distention, and the CT scan of the abdomen shows no renal stones or hydronephrosis. PHYSICAL EXAMINATION: VITAL SIGNS: Pulse 80, blood pressure 148/75, respirations 18. HEENT: Conjunctivae are normal. NECK: No jugular venous distention. CARDIOVASCULAR: S1 and S2 muffled. RESPIRATORY: Breath sounds diminished at the bases. Few scattered rhonchi. ABDOMEN: Soft. Obese. LEGS: No edema. NERVOUS SYSTEM: Nonfocal. LABORATORY DATA: Creatinine 3. Rest of the labs are noted. ASSESSMENT: 1. Acute renal failure with possible acute tubular necrosis or acute interstitial nephritis, drug-induced. 2. Troponin 0.05, indeterminate. 3. Diarrhea. 4. Possible ileus abdomen. 5. Weakness and fall. 6. Morbid obesity. 7. Hypertension. 8. Hyperlipidemia. 9. Sleep apnea. 10.History of benign prostatic hyperplasia possibly. RECOMMENDATIONS: Recommend to continue current medications. Continue symptomatic treatment. Otherwise, I would continue with cautious hydration and closely follow with multiple consultants including Cardiology. Avoid nephrotoxic medications. See orders for details. Continue to monitor. Further recommendations to follow. Discussed with the patient's family at length. MMODL / IJN: [id number] /
[2023-07-30] MEDS: PRAVASTATIN SODIUM 80 MG TAB PO SCH (21:10)
[2023-07-30] MEDS: ALPRAZolam 0.25 MG TAB PO PRN (22:38)
[2023-07-31] MEDS: LEVOTHYROXINE 50 MCG TAB PO SCH (06:12)
[2023-07-31] MEDS: amLODIPine 5 MG TAB PO SCH (08:55)
[2023-07-31] MEDS: ASPIRIN 81 MG PO SCH (08:55)
[2023-07-31] MEDS: FAMOTIDINE 20 MG TAB PO SCH (08:55)
[2023-07-31] MEDS: TAMSULOSIN 0.4 MG CAP.ER.24H PO SCH (08:55)
[2023-07-31] MEDS: SODIUM BICARBONATE TAB 650 MG TAB PO SCH ×3 (08:55→21:17)
[2023-07-31] MEDS: hydrALAZINE HCL 50 MG TAB PO SCH ×3 (08:55→21:17)
[2023-07-31 09:33] LABS: Basophils % (A) 0 %; Eosinophils # (A) 0.6 k/uL (0-0.7); Eosinophils % (A) 6 %; HCT 34.5 % (39.0-53.0); HGB 11.4 gm/dL (13.0-17.5); Lymphocytes # (A) 0.8 k/uL (1.0-4.8); Lymphocytes % (A) 9 %; MCH 32.7 pg (25.0-35.0); MCV 98.9 fL (80.0-100.0); Mean Platelet Volume 8.8; Monocytes # (A) 0.6 k/uL (0-1.0); Monocytes % (A) 7 %; Neutrophils # (A) 6.4 k/uL (1.3-7.7); Neutrophils % (A) 75 %; Platelet Count 192 k/uL (150-450); RBC 3.49 m/uL (4.30-5.90); RDW 13.9 % (11.5-15.5); WBC 8.6 k/uL (3.8-10.6)
[2023-07-31 11:41] LABS: ALT 32 U/L (4-49); AST 40 U/L (17-59); African American GFR (CKD) 24 (>60 ml/min/1.73 sqM); Albumin 3.3 g/dL (3.5-5.0); Albumin/Globulin Ratio 1.3; Alkaline Phosphatase 62 U/L (38-126); Anion Gap 9 mmol/L; Blood Urea Nitrogen 57 mg/dL (9-20); Calcium 8.9 mg/dL (8.4-10.2); Carbon Dioxide 20 mmol/L (22-30); Chloride 101 mmol/L (98-107); Globulin 2.5 g/dL; Glucose 111 mg/dL (74-99); Non-African American GFR(CKD) 21 (>60 ml/min/1.73 sqM); Potassium 4.4 mmol/L (3.5-5.1); Sodium 130 mmol/L (137-145); Total Bilirubin 0.4 mg/dL (0.2-1.3); Total Protein 5.8 g/dL (6.3-8.2)
--- NOTE | 2023-07-31 11:56 | P.PN ---
Subjective Patient is seen in follow-up for acute kidney injury on chronic kidney disease. Renal function improving. Creatinine 2.65 today. Nonoliguric. Has Gill catheter for urinary retention. Oral intake fair. Once to go home. Good urine output with Gill catheter Objective - Vital Signs Vital signs: Vital Signs Temp 98.5 F 07/31/23 08:00 Pulse 102 H 07/31/23 08:40 Resp 17 07/31/23 08:40 BP 123/52 07/31/23 08:00 Pulse Ox 94 L 07/31/23 08:00 FiO2 Intake & Output 07/30/23 07/31/23 07/31/23 18:59 06:59 18:59 Output Total 1525 800 Balance -1525 -800 Weight 99.5 kg 118.5 kg Output: Urine 1525 800 Other: Voiding Method Indwelling Catheter Indwelling Catheter # Bowel Movements 2 - Exam Patient is awake, comfortable, no acute distress Examination of the heart S1 and S2 Examination of the lungs bilateral breath sounds are heard Abdomen is soft obese, distended nontender Examination of lower extremities shows 1+ edema - Labs CBC & Chem 7: 07/31/23 07:08 07/31/23 07:08 Labs: Abnormal Lab Results - Last 24 Hours (Table) 07/31/23 07/31/23 Range/Units 07:08 07:08 RBC 3.49 L (4.30-5.90) m/uL Hgb 11.4 L (13.0-17.5) gm/dL Hct 34.5 L (39.0-53.0) % Lymphocytes # 0.8 L (1.0-4.8) k/uL Sodium 130 L (137-145) mmol/L Carbon Dioxide 20 L (22-30) mmol/L BUN 57 H (9-20) mg/dL Creatinine 2.65 H (0.66-1.25) mg/dL Glucose 111 H (74-99) mg/dL Total Protein 5.8 L (6.3-8.2) g/dL Albumin 3.3 L (3.5-5.0) g/dL Assessment and Plan Assessment: 1. Acute kidney injury secondary to urinary retention and use of Bactrim which will impair creatinine secretion. Creatinine 3.91 on admission and is 2.6 today. No hydronephrosis noted on kidney ultrasound. UA fairly benign. 2. Urinary retention. Nearly 1 L of urine obtained with Gill catheter placement on 07/28/2023. On Flomax. Urology following. 3. Chronic kidney disease stage IIIB with baseline creatinine 1.6-1.8 secondary to nephrosclerosis. 4. Hypertension with chronic kidney disease. 5. Metabolic acidosis secondary to acute kidney injury and GI losses. Improving. 6. Chronic kidney disease mineral bone disease maintained on Calcitrol. 7. Hypervolemic hyponatremia. 8. Ileus. Maintained on liquid diet. Plan: Continue with Gill catheter Repeat labs in a.m. Management of ileus as per primary team
--- NOTE | 2023-07-31 12:28 | P.PN ---
Subjective Progress Note Date: 07/31/23 HISTORY OF PRESENT ILLNESS: This is a 88-year-old male with a past medical history significant for hypertension, hyperlipidemia, carotid stenosis, obstructive sleep apnea, and former nicotine dependence. Patient follows in the office with Dr. Restrepo. We have been asked to see the patient in consultation for abnormal troponins. Patient is seen today in the emergency center waiting for a bed on the [facility] floor he denies having loss of consciousness. He denies having any chest pain. He has chronic shortness of breath all the time. The patient presented to the hospital after sustaining a fall. The patient was noted to have urinary retention and a Gill catheter was placed and he has been seen by nephrology for acute kidney injury. It is noted that the patient was started on Bactrim last week for a facial infection. The patient's blood pressures were noted to be elevated with systolics in the 170s and 180s. His hydralazine was increased per nephrology. * EKG reveals sinus mechanism with low voltage QRS. Computer interpretation reveals atrial fibrillation which is incorrect. * Chest xray low lung volumes with generalized hazy appearance could represent atelectasis versus pulmonary edema * Laboratory data: Troponin 0.039. 0.055. * Current home cardiac medications include hydralazine 50 mg 3 times a day, Lasix 60 mg every 48 hours, amlodipine 5 mg daily, Lasix 40 mg every 48 hours, pravastatin 80 mg at night. * Most recent echocardiogram obtained in November 2016 revealed ejection fraction 55% * Patient underwent dobutamine stress test in May 2022 which was negative for ischemia but did reveal fixed inferior wall defect. 07/31/2023 telemetry was reviewed and it shows that patient has irregular heart rate because of sinus rhythm and significant PACs and PVCs. It is less likely atrial fibrillation. He denies any chest pain chest pressure. He does report mild shortness of breath. His Lasix has been discontinued because of BA which is most likely due to Bactrim use in setting of his chronic kidney disease and urinary retention. REVIEW OF SYSTEMS: At the time of my exam: CONSTITUTIONAL: Denies fever or chills. HEENT: Denies blurred vision, vision changes, or eye pain. Denies hemoptysis CARDIOVASCULAR: Denies chest pain. Denies orthopnea. Denies PND. Denies palpitations RESPIRATORY: Chronic shortness of breath. GASTROINTESTINAL: Denies abdominal pain. Denies nausea or vomiting. HEMATOLOGIC: Denies bleeding disorders. GENITOURINARY: Denies any blood in urine. SKIN: Denies pruitis. Denies rash. PHYSICAL EXAM: VITAL SIGNS: Reviewed. GENERAL: Well-developed in no acute distress. HEENT: Head is normocephalic. Pupils are equal, round. Sclerae anicteric. Mucous membranes of the mouth are moist. Neck supple. No JVD or thyromegaly LUNGS: Respirations even and unlabored. Lungs essentially clear to auscultation bilaterally. HEART: Regular rate and rhythm. S1 and S2 heard. ABDOMEN: Soft. Nondistended. Nontender. EXTREMITIES: Normal range of motion. No clubbing or cyanosis. Peripheral pulses intact. No lower extremity edema NEUROLOGIC: Awake and alert. Oriented x 3. ASSESSMENT: Status post mechanical fall without loss of consciousness, likely noncardiac Acute kidney injury and chronic kidney disease Bactrim use related acute kidney injury Urinary retention requiring Gill catheter placement Frequent PACs and PVCs Abnormal troponins, flat, secondary to above, no evidence of acute coronary syndrome Hypertension Hyperlipidemia Carotid stenosis Obstructive sleep apnea Former nicotine dependence PLAN: Echocardiogram showed an EF of 55% with no concerning LVOT obstruction. We will add metoprolol 25 mg twice a day to suppress PACs and PVCs. Continue hydralazine for blood pressure control. Hold VERNON inhibitor is due to BA. AK has been improving. Mildly volume overloaded. Would recommend starting Lasix 40 mg to 48 hours which he was on at home. Removal catheter and do voiding trial Patient is cleared to discharge from cardiac vessel standpoint. Follow up outpatient with cardiology Dr. Conner Objective - Vital Signs Vital signs: Vital Signs Temp 98.5 F 07/31/23 08:00 Pulse 102 H 07/31/23 08:40 Resp 17 07/31/23 08:40 BP 123/52 07/31/23 08:00 Pulse Ox 94 L 07/31/23 08:00 FiO2 Intake & Output 07/30/23 07/31/23 07/31/23 18:59 06:59 18:59 Output Total 1525 800 Balance -1525 -800 Weight 99.5 kg 118.5 kg Output: Urine 1525 800 Other: Voiding Method Indwelling Catheter Indwelling Catheter # Bowel Movements 2 - Labs CBC & Chem 7: 07/31/23 07:08 12/02/23 07:08 Labs: Abnormal Lab Results - Last 24 Hours (Table) 07/31/23 07/31/23 Range/Units 07:08 07:08 RBC 3.49 L (4.30-5.90) m/uL Hgb 11.4 L (13.0-17.5) gm/dL Hct 34.5 L (39.0-53.0) % Lymphocytes # 0.8 L (1.0-4.8) k/uL Sodium 130 L (137-145) mmol/L Carbon Dioxide 20 L (22-30) mmol/L BUN 57 H (9-20) mg/dL Creatinine 2.65 H (0.66-1.25) mg/dL Glucose 111 H (74-99) mg/dL Total Protein 5.8 L (6.3-8.2) g/dL Albumin 3.3 L (3.5-5.0) g/dL
[2023-07-31] MEDS: METOPROLOL TARTRATE 25 MG TAB PO SCH ×2 (13:33→21:17)
[2023-07-31] MEDS: ACETAMINOPHEN TAB 500 MG TAB PO SCH (13:34)
--- NOTE | 2023-07-31 17:32 | XR ---
EXAMINATION TYPE: XR chest 1V portable DATE OF EXAM: 07/31/2023 COMPARISON: 07/28/2023 INDICATION: CHF TECHNIQUE: Single frontal view of the chest is obtained. FINDINGS: The heart size is mildly prominent. The pulmonary vasculature is normal. The lungs are clear. Overt congestive heart failure is not identified. IMPRESSION: 1. No acute pulmonary process. Follow-up can be performed as clinically indicated.
--- NOTE | 2023-07-31 19:17 | P.PN ---
Subjective Progress Note Date: 07/31/23 Principal diagnosis: Status post fall, ileus, acute on chronic renal failure, elevated troponin Patient sitting upright in chair, appears quite comfortable, states he is passing some flatus, no nausea or vomiting Objective - Vital Signs Vital signs: Vital Signs Temp 97.8 F 07/31/23 13:39 Pulse 81 07/31/23 17:01 Resp 19 07/31/23 13:39 BP 132/70 07/31/23 17:01 Pulse Ox 96 07/31/23 13:39 FiO2 Intake & Output 07/31/23 07/31/23 08/01/23 06:59 18:59 06:59 Intake Total 240 Output Total 800 700 Balance -800 -460 Weight 118.5 kg Intake: Oral 240 Output: Urine 800 700 Other: Voiding Method Indwelling Catheter Indwelling Catheter - Constitutional General appearance: Present: no acute distress - EENT EENT Comment(s): Small contusion noted on forehead Eyes: Present: PERRLA - Respiratory Respiratory: bilateral: CTA (Nonlabored respirations) - Cardiovascular Rhythm: regular - Gastrointestinal Gastrointestinal Comment(s): Protuberant but soft, and minimally tender to deep palpation - Neurologic Neurologic Comment(s): Awake and alert, orientated 3, appropriate affect - Labs CBC & Chem 7: 07/31/23 07:08 07/31/23 07:08 Labs: Abnormal Lab Results - Last 24 Hours (Table) 07/31/23 07/31/23 Range/Units 07:08 07:08 RBC 3.49 L (4.30-5.90) m/uL Hgb 11.4 L (13.0-17.5) gm/dL Hct 34.5 L (39.0-53.0) % Lymphocytes # 0.8 L (1.0-4.8) k/uL Sodium 130 L (137-145) mmol/L Carbon Dioxide 20 L (22-30) mmol/L BUN 57 H (9-20) mg/dL Creatinine 2.65 H (0.66-1.25) mg/dL Glucose 111 H (74-99) mg/dL Total Protein 5.8 L (6.3-8.2) g/dL Albumin 3.3 L (3.5-5.0) g/dL Assessment and Plan Assessment: 88-year-old male status post recent fall, concern for ileus. Multiple medical issues as noted above Ileus appears to be resolving with passage of flatus, negative CT abdomen and pelvis on admission Continue clear liquids at present, advance per patient request We'll follow with you thank you Time with Patient: Less than 30
[2023-07-31] MEDS: PRAVASTATIN SODIUM 80 MG TAB PO SCH (21:17)
--- NOTE | 2023-08-01 02:02 | PN ---
PROGRESS NOTE DATE OF SERVICE: 07/31/2023 SUBJECTIVE: This is an 88-year-old gentleman who was admitted with acute renal failure with possible acute tubular necrosis, also had some continued diarrhea. The creatinine has improved significantly. Today's value is 2.65. Multiple consultants are following the patient closely. Gastroenterology consultation also has been sought. Nephrology following the patient closely. Cardiology also following the patient closely. PAST MEDICAL HISTORY: Reviewed. REVIEW OF SYSTEMS: A 14-point review is negative except as mentioned earlier. CURRENT MEDICATIONS: Reviewed include Norvasc. Doses and rest of medications noted. PHYSICAL EXAMINATION: VITAL SIGNS: Pulse is 102, blood pressure nrespirations 17. HEENT: Conjunctivae normal. NECK: No JVD. CARDIOVASCULAR: S1, S2. RESPIRATIONS: A few scattered rhonchi. ABDOMEN: Obese, mild diffuse distention, but nontender. No guarding. No rigidity. No mass. Bowel sounds diminished. No ascites. NERVOUS SYSTEM: Nonfocal. LABORATORY DATA: WBC 8.2, hemoglobin 11.4, sodium 130. Rest of the labs are noted. Creatinine 2.65. ASSESSMENT: 1. Acute renal failure with possible acute tubular necrosis or acute interstitial nephritis, drug-induced Bactrim. 2. Troponin 0.05, indeterminate. 3. Diarrhea, possibly infectious. 4. Possible ileus abdomen. 5. Weakness and fall. 6. Morbid obesity. 7. Hypertension. 8. Hyperlipidemia. 9. Sleep apnea. 10.History of benign prostatic hypertrophy. RECOMMENDATIONS AND DISCUSSION: We will continue to monitor. Otherwise, continue with monitoring creatinine closely. Repeat labs. Avoid nephrotoxic medications. The patient received 1 dose of Lasix. I would recommend repeat chest x-ray to obtain surgical evaluation and guarded prognosis. Further recommendations to follow. MMODL / IJN: [id number] / [id number]
[2023-08-01] MEDS: LEVOTHYROXINE 50 MCG TAB PO SCH (05:38)
[2023-08-01 07:51] LABS: Basophils % (A) 0 %; Eosinophils # (A) 0.5 k/uL (0-0.7); Eosinophils % (A) 6 %; Lymphocytes # (A) 0.7 k/uL (1.0-4.8); Lymphocytes % (A) 8 %; MCH 32.6 pg (25.0-35.0); MCHC 32.5 g/dL (31.0-37.0); MCV 100.3 fL (80.0-100.0); Mean Platelet Volume 8.2; Monocytes # (A) 0.3 k/uL (0-1.0); Monocytes % (A) 4 %; Neutrophils # (A) 7.1 k/uL (1.3-7.7); Neutrophils % (A) 81 %; Platelet Count 206 k/uL (150-450); RBC 3.68 m/uL (4.30-5.90); RDW 13.6 % (11.5-15.5); WBC 8.8 k/uL (3.8-10.6)
[2023-08-01] MEDS: FAMOTIDINE 20 MG TAB PO SCH (09:54)
[2023-08-01] MEDS: METOPROLOL TARTRATE 25 MG TAB PO SCH ×2 (09:54→21:03)
[2023-08-01] MEDS: SODIUM BICARBONATE TAB 650 MG TAB PO SCH ×3 (09:54→21:03)
[2023-08-01] MEDS: ASPIRIN 81 MG PO SCH (09:54)
[2023-08-01] MEDS: TAMSULOSIN 0.4 MG CAP.ER.24H PO SCH (09:54)
[2023-08-01] MEDS: hydrALAZINE HCL 50 MG TAB PO SCH ×3 (09:54→21:03)
[2023-08-01] MEDS: amLODIPine 5 MG TAB PO SCH (09:54)
[2023-08-01 11:03] LABS: African American GFR (CKD) 27 (>60 ml/min/1.73 sqM); Anion Gap 11 mmol/L; Blood Urea Nitrogen 51 mg/dL (9-20); Calcium 9.4 mg/dL (8.4-10.2); Carbon Dioxide 21 mmol/L (22-30); Chloride 100 mmol/L (98-107); Glucose 131 mg/dL (74-99); Non-African American GFR(CKD) 24 (>60 ml/min/1.73 sqM); Potassium 5.2 mmol/L (3.5-5.1); Sodium 132 mmol/L (137-145)
--- NOTE | 2023-08-01 12:08 | P.CNPUL ---
History of Present Illness Consult date: 08/01/23 Requesting physician: Ronn Montalvo Reason for consult: dyspnea Chief complaint: Dyspnea on exertion, fall, weakness History of present illness: This is an 88-year-old male patient with a known history of obstructive sleep apnea on home CPAP, chronic kidney disease, hypertension, hyperlipidemia, carotid stenosis, former smoker however quit 30 years ago but did smoke for approximately 40 years. He was admitted back on 07/28/2023 after presenting with generalized weakness, loss of balance and fall at home. He denied loss of consciousness. He was being treated for sinus infection at that time. He also was having some complaints of dyspnea on exertion. We're consulted today 08/01/2023 for the same. Chest x-ray revealed no acute pulmonary process. White count 8.8. Hemoglobin 12.0. Platelets 206. Sodium 132. Potassium 5.2. Bicarb 21. BUN 51. Creatinine 2.41. Glucose 131. He is seen today in consultation on the regular medical floor. He is currently resting comfortably in bed. Awake and alert in no acute distress. He denies any shortness of breath at rest. He is maintaining O2 saturations in the 90s on room air. No cough or congestion. No fever or chills. Afebrile. Hemodynamically stable. Review of Systems REVIEW OF SYSTEMS: CONSTITUTIONAL: Denies weakness. Denies any recent significant weight loss or weight gain. EYES: Denies change in vision. EARS, NOSE, MOUTH, THROAT: Denies headaches, denies sore throat. CARDIOVASCULAR: Denies chest pain, palpitations or syncopal episodes. RESPIRATORY: Dyspnea on exertion but currently denies shortness of breath, cough, congestion or hemoptysis. GASTROINTESTINAL: Denies change in appetite, denies abdominal pain GENITOURINARY: Denies hematuria, denies infections. MUSKULOSKELETAL: Denies pain, denies swelling. INTEGUMENTARY: Denies rash, denies eczema. NEUROLOGICAL: Denies recent memory loss, no recent seizure activity. PSYCHIATRIC: Denies anxiety, denies depression. HEMATOLOGIC/LYMPHATIC: Denies anemia, denies enlarged lymph nodes. Past Medical History Past Medical History: Hyperlipidemia, Hypertension, Osteoarthritis (OA), Sleep Apnea/CPAP/BIPAP, Thyroid Disorder Additional Past Medical History / Comment(s): 06/03/15 Pt admitted to floor s/p total L knee arthroplasty. Other hx: gout, Najera's palsy, frequent lower leg swelling, states Dr Coffey concerned about kidney function-having some labs rechecked, SKYLAR with CPAP use. History of Any Multi-Drug Resistant Organisms: None Reported Past Surgical History: Joint Replacement Additional Past Surgical History / Comment(s): 06/03/15 Total L knee arthroplasty. Other SX: 2-3 colonoscopies, bilateral cataract removal with lens implants and a yr later laser sx on both eyes, bilateral eyelid sx, vasectomy. Past Anesthesia/Blood Transfusion Reactions: No Reported Reaction Additional Past Anesthesia/Blood Transfusion Reaction / Comment(s): Pt has never recieved blood. Past Psychological History: No Psychological Hx Reported Additional Psychological History / Comment(s): Pt resides with his spouse. He is independent. Smoking Status: Never smoker Past Alcohol Use History: Occasional Additional Past Alcohol Use History / Comment(s): quit smoking in 1991, smoked since age of 19 Past Drug Use History: None Reported - Past Family History Mother Family Medical History: Rheumatoid Arthritis (RA) Additional Family Medical History / Comment(s): Mother had numerous joint surgeries. She at age 84 yrs. Sister(s) Family Medical History: Cancer Father Family Medical History: Diabetes Mellitus Additional Family Medical History / Comment(s): Father at age 83yrs. Medications and Allergies Home Medications Medication Instructions Recorded Confirmed Type Furosemide [Lasix] 60 mg PO Q48H 05/31/14 07/28/23 History Pravastatin Sodium [Pravachol] 80 mg PO HS 05/31/14 07/28/23 History allopurinoL [Zyloprim] 300 mg PO DAILY 05/31/14 07/28/23 History amLODIPine [Norvasc] 5 mg PO DAILY 05/31/14 07/28/23 History Amoxic-Pot Clav 875-125Mg 1 tab PO Q12HR #20 tablet 07/22/23 07/28/23 Rx [Augmentin 875-125] Sulfamethox-Tmp 800-160Mg [Bactrim 2 tab PO BID #40 tab 07/22/23 07/28/23 Rx DS 800-160 mg] Acetaminophen Tab [Tylenol Tab] 1,250 mg PO BID 07/28/23 07/28/23 History Acetaminophen Tab [Tylenol Tab] 500 mg PO DAILY@1400 07/28/23 07/28/23 History Aspirin EC [Ecotrin Low Dose] 81 mg PO DAILY 07/28/23 07/28/23 History Benazepril HCl 20 mg PO DAILY 07/28/23 07/28/23 History Furosemide [Lasix] 40 mg PO Q48H 07/28/23 07/28/23 History Levothyroxine Sodium [Synthroid] 50 mcg PO DAILY 07/28/23 07/28/23 History Saw [place] 500 mg PO BID 07/28/23 07/28/23 History calcitrioL [Calcitriol] 0.25 mcg PO ROY 07/28/23 07/28/23 History hydrALAZINE HCL [Apresoline] 50 mg PO TID 07/28/23 07/28/23 History Allergies Allergy/AdvReac Type Severity Reaction Status Date / Time No Known Allergies Allergy Verified 07/28/23 18:24 Physical Exam Vitals: Vital Signs Temp Pulse Resp BP Pulse Ox 08/01/23 09:25 89 15 08/01/23 08:00 98.4 F 89 15 152/75 96 08/01/23 06:20 85 145/68 96 08/01/23 02:00 98.4 F 86 20 114/73 92 L 07/31/23 20:00 97.7 F 83 16 140/60 97 07/31/23 19:45 19 07/31/23 17:01 81 132/70 07/31/23 13:39 97.8 F 107 H 19 132/86 96 Intake and Output 07/31/23 08/01/23 08/01/23 22:59 06:59 14:59 Intake Total 590 590 Output Total 700 1300 Balance -110 -710 Intake: Oral 590 590 Output: Urine 700 1300 Other: Voiding Method Indwelling Catheter Indwelling Catheter # Voids 2 # Bowel Movements 1 3 1 Weight 130.89 kg GENERAL EXAM: Alert, pleasant 88-year-old male patient, on room air, comfortable in no apparent distress. HEAD: Normocephalic. EYES: Normal reaction of pupils, equal size. NOSE: Clear with pink turbinates. THROAT: No erythema or exudates. NECK: No masses, no JVD. CHEST: No chest wall deformity. LUNGS: Equal air entry with no crackles, wheeze, rhonchi or dullness. CVS: S1 and S2 normal with no audible murmur, regular rhythm. ABDOMEN: No hepatosplenomegaly, normal bowel sounds, no guarding or rigidity. SPINE: No scoliosis or deformity SKIN: No rashes CENTRAL NERVOUS SYSTEM: No focal deficits, tone is normal in all 4 extremities. EXTREMITIES: There is no peripheral edema. No clubbing, no cyanosis. Peripheral pulses are intact. Results - Laboratory Findings CBC and BMP: 08/01/23 07:06 08/01/23 07:06 Abnormal lab findings: Abnormal Labs 07/28/23 07/28/23 07/28/23 19:36 19:36 19:36 WBC RBC 3.79 L Hgb 12.4 L Hct 37.0 L MCV MCH Neutrophils # 8.0 H Lymphocytes # 0.4 L Eosinophils # Sodium 135 L Potassium Carbon Dioxide 19 L Anion Gap BUN 84 H Creatinine 3.91 H Est GFR (CKD-EPI) BUN/Creatinine Ratio Glucose 121 H Osmolality Magnesium 2.8 H AST Creatine Kinase CK-MB (CK-2) Troponin I 0.039 H* Total Protein Albumin Urine Protein 07/28/23 07/28/23 07/28/23 22:20 22:20 22:24 WBC RBC Hgb Hct MCV MCH Neutrophils # Lymphocytes # Eosinophils # Sodium Potassium Carbon Dioxide Anion Gap BUN Creatinine Est GFR (CKD-EPI) BUN/Creatinine Ratio Glucose Osmolality 307 H Magnesium AST Creatine Kinase 346 H CK-MB (CK-2) 6.7 H Troponin I Total Protein Albumin Urine Protein Trace H 07/29/23 07/29/23 07/30/23 04:22 09:21 07:26 WBC RBC Hgb Hct MCV MCH Neutrophils # Lymphocytes # Eosinophils # Sodium 134 L 131 L Potassium Carbon Dioxide 17 L 18.8 L Anion Gap 14.20 H BUN 72 H 64.7 H Creatinine 3.24 H 3.0 H Est GFR (CKD-EPI) 20 L BUN/Creatinine Ratio 21.57 H Glucose 118 H 129 H Osmolality Magnesium 2.7 H 2.7 H AST 44 H Creatine Kinase CK-MB (CK-2) Troponin I 0.055 H* Total Protein Albumin Urine Protein 07/30/23 07/31/23 07/31/23 07:26 07:08 07:08 WBC 10.09 H RBC 3.83 L 3.49 L Hgb 12.3 L 11.4 L Hct 37.0 L 34.5 L MCV MCH 32.1 H Neutrophils # 7.72 H Lymphocytes # 0.76 L 0.8 L Eosinophils # 0.53 H Sodium 130 L Potassium Carbon Dioxide 20 L Anion Gap BUN 57 H Creatinine 2.65 H Est GFR (CKD-EPI) BUN/Creatinine Ratio Glucose 111 H Osmolality Magnesium AST Creatine Kinase CK-MB (CK-2) Troponin I Total Protein 5.8 L Albumin 3.3 L Urine Protein 08/01/23 08/01/23 07:06 07:06 WBC RBC 3.68 L Hgb 12.0 L Hct 37.0 L MCV 100.3 H MCH Neutrophils # Lymphocytes # 0.7 L Eosinophils # Sodium 132 L Potassium 5.2 H Carbon Dioxide 21 L Anion Gap BUN 51 H Creatinine 2.41 H Est GFR (CKD-EPI) BUN/Creatinine Ratio Glucose 131 H Osmolality Magnesium AST Creatine Kinase CK-MB (CK-2) Troponin I Total Protein Albumin Urine Protein - Diagnostic Findings Chest x-ray: image reviewed (No acute pulmonary process) Assessment and Plan Assessment: Dyspnea on exertion of unclear etiology. Suspect obesity, deconditioning, age. Chest x-ray shows no acute pulmonary process. Former smoker of 40 years however quit 30 years ago Obstructive sleep apnea maintained on CPAP Generalized weakness and fall at home without loss of consciousness Hypothyroidism Congestive heart failure, preserved left ventricular systolic function Hyperlipidemia Hypertension Recent sinus infection treated with Augmentin the outpatient setting Plan: The patient was seen and evaluated Chest x-ray, labs and medications reviewed No acute pulmonary process Stable and on room air Utilizing his home CPAP Increase his activity as tolerated We will continue to follow and make further recommendations based on his clinical status I have personally seen and examined the patient, performed the documentation and the assessment and plan as written. Number of minutes spent on the visit: 20.
--- NOTE | 2023-08-01 12:16 | P.PN ---
Subjective Patient is seen in follow-up for acute kidney injury on chronic kidney disease. Renal function improving. Creatinine 2.4 today. Nonoliguric. Has Gill catheter for urinary retention. Oral intake fair. Wants to go home. Good urine output with Gill catheter. Patient has had good bowel movements. Objective - Vital Signs Vital signs: Vital Signs Temp 98.4 F 08/01/23 08:00 Pulse 89 08/01/23 09:25 Resp 15 08/01/23 09:25 BP 152/75 08/01/23 08:00 Pulse Ox 96 08/01/23 08:00 FiO2 Intake & Output 07/31/23 08/01/23 08/01/23 18:59 06:59 18:59 Intake Total 240 1180 Output Total 700 1300 Balance -460 -120 Weight 130.89 kg Intake: Oral 240 1180 Output: Urine 700 1300 Other: Voiding Method Indwelling Catheter Indwelling Catheter Indwelling Catheter # Voids 2 # Bowel Movements 3 1 - Exam Patient is awake, comfortable, no acute distress Examination of the heart S1 and S2 Examination of the lungs bilateral breath sounds are heard Abdomen is soft obese, distended nontender, improved from yesterday Examination of lower extremities shows 1+ edema - Labs CBC & Chem 7: 08/01/23 07:06 08/01/23 07:06 Labs: Abnormal Lab Results - Last 24 Hours (Table) 08/01/23 08/01/23 Range/Units 07:06 07:06 RBC 3.68 L (4.30-5.90) m/uL Hgb 12.0 L (13.0-17.5) gm/dL Hct 37.0 L (39.0-53.0) % MCV 100.3 H (80.0-100.0) fL Lymphocytes # 0.7 L (1.0-4.8) k/uL Sodium 132 L (137-145) mmol/L Potassium 5.2 H (3.5-5.1) mmol/L Carbon Dioxide 21 L (22-30) mmol/L BUN 51 H (9-20) mg/dL Creatinine 2.41 H (0.66-1.25) mg/dL Glucose 131 H (74-99) mg/dL Assessment and Plan Assessment: 1. Acute kidney injury secondary to urinary retention and use of Bactrim which will impair creatinine secretion. Creatinine 3.91 on admission and is 2.6 today. No hydronephrosis noted on kidney ultrasound. UA fairly benign. 2. Urinary retention. Nearly 1 L of urine obtained with Gill catheter placement on 07/28/2023. On Flomax. Urology following. 3. Chronic kidney disease stage IIIB with baseline creatinine 1.6-1.8 secondary to nephrosclerosis. 4. Hypertension with chronic kidney disease. 5. Metabolic acidosis secondary to acute kidney injury and GI losses. Improving. 6. Chronic kidney disease mineral bone disease maintained on Calcitrol. 7. Hypervolemic hyponatremia. 8. Ileus. Maintained on liquid diet. Plan: Continue with Gill catheter Repeat labs in a.m. Management of ileus as per primary team
--- NOTE | 2023-08-01 12:43 | P.PN ---
Subjective Progress Note Date: 08/01/23 The patient is in the hospital after a fall. He is found to be in urine retention. He was seen by with this. He has an indwelling catheter. There was some blood yesterday probably due to minor cath trauma. No bleeding prior to the catheter. Objective - Vital Signs Vital signs: Vital Signs Temp 98.4 F 08/01/23 08:00 Pulse 89 08/01/23 09:25 Resp 15 08/01/23 09:25 BP 152/75 08/01/23 08:00 Pulse Ox 96 08/01/23 08:00 FiO2 Intake & Output 07/31/23 08/01/23 08/01/23 18:59 06:59 18:59 Intake Total 240 1180 Output Total 700 1300 Balance -460 -120 Weight 130.89 kg Intake: Oral 240 1180 Output: Urine 700 1300 Other: Voiding Method Indwelling Catheter Indwelling Catheter Indwelling Catheter # Voids 2 # Bowel Movements 3 1 - Labs CBC & Chem 7: 08/01/23 07:06 08/01/23 07:06 Labs: Abnormal Lab Results - Last 24 Hours (Table) 08/01/23 08/01/23 Range/Units 07:06 07:06 RBC 3.68 L (4.30-5.90) m/uL Hgb 12.0 L (13.0-17.5) gm/dL Hct 37.0 L (39.0-53.0) % MCV 100.3 H (80.0-100.0) fL Lymphocytes # 0.7 L (1.0-4.8) k/uL Sodium 132 L (137-145) mmol/L Potassium 5.2 H (3.5-5.1) mmol/L Carbon Dioxide 21 L (22-30) mmol/L BUN 51 H (9-20) mg/dL Creatinine 2.41 H (0.66-1.25) mg/dL Glucose 131 H (74-99) mg/dL Assessment and Plan Assessment: Impression: The patient is recuperating from his fall. He has urine retention. Recommendations: Catheter can be removed tomorrow. If he is unable to urinate it should be replaced and he can follow in our office with the catheter.
[2023-08-01] MEDS: ACETAMINOPHEN TAB 325 MG TAB PO PRN (14:32)
[2023-08-01] MEDS: ACETAMINOPHEN TAB 500 MG TAB PO SCH (14:34)
--- NOTE | 2023-08-01 15:15 | P.PN ---
Subjective Progress Note Date: 08/01/23 He reports feeling better after passing moderate flatus and had a large bowel movement. He is tolerating liquids. Advance diet to low fiber. Decrease use of strays and carbonated beverages discussed. Add simethicone scheduled. Objective - Vital Signs Vital signs: Vital Signs Temp 98.1 F 08/01/23 13:04 Pulse 70 08/01/23 13:04 Resp 19 08/01/23 13:04 BP 122/66 08/01/23 13:04 Pulse Ox 97 08/01/23 13:04 FiO2 Intake & Output 07/31/23 08/01/23 08/01/23 18:59 06:59 18:59 Intake Total 240 1180 240 Output Total 700 1300 Balance -460 -120 240 Weight 130.89 kg Intake: Oral 240 1180 240 Output: Urine 700 1300 Other: Voiding Method Indwelling Catheter Indwelling Catheter Indwelling Catheter # Voids 2 # Bowel Movements 3 2 - Labs CBC & Chem 7: 08/01/23 07:06 08/01/23 07:06 Labs: Abnormal Lab Results - Last 24 Hours (Table) 08/01/23 08/01/23 Range/Units 07:06 07:06 RBC 3.68 L (4.30-5.90) m/uL Hgb 12.0 L (13.0-17.5) gm/dL Hct 37.0 L (39.0-53.0) % MCV 100.3 H (80.0-100.0) fL Lymphocytes # 0.7 L (1.0-4.8) k/uL Sodium 132 L (137-145) mmol/L Potassium 5.2 H (3.5-5.1) mmol/L Carbon Dioxide 21 L (22-30) mmol/L BUN 51 H (9-20) mg/dL Creatinine 2.41 H (0.66-1.25) mg/dL Glucose 131 H (74-99) mg/dL
[2023-08-01] MEDS: SIMETHICONE 40 MG/0.6 ML DROPS 2,000 MG/30 ML BOTTLE PO SCH ×3 (17:33→21:03)
--- NOTE | 2023-08-01 18:44 | PN ---
PROGRESS NOTE DATE OF SERVICE: 08/01/2023 SUBJECTIVE: This is an 88-year-old gentleman, who was admitted with multiple complex medical issues and acute renal failure. He is improving significantly. The patient still has some minimal diarrhea. The creatinine today is improved to 2.41. PAST MEDICAL HISTORY: Reviewed. PHYSICAL EXAMINATION: VITAL SIGNS: Pulse is 70, blood pressure 122/66, respirations 19. CHEST: Clear to auscultation. CARDIOVASCULAR: S1 and S2 muffled. ABDOMEN: Soft and obese. LABORATORY DATA: Reviewed. ASSESSMENT: 1. Acute renal failure with possible acute tubular necrosis and acute interstitial nephritis, drug-induced, Bactrim. 2. Troponin 0.05, indeterminate. Possible myocardial infarction ruled out. 3. Diarrhea, possibly infectious. 4. Possible ileus abdomen. 5. Weakness and fall. 6. Morbid obesity. 7. Hypertension. 8. Hyperlipidemia. 9. Sleep apnea. 10.History of benign prostatic hyperplasia. RECOMMENDATIONS: Recommend to continue current medical management. Continue symptomatic treatment. Otherwise, at this time, I would recommend to continue the rest of the medications. Possible discontinue Gill catheter in the morning. Guarded prognosis. Further recommendations to follow. MMODL / IJN: [id number] /
[2023-08-01] MEDS: PRAVASTATIN SODIUM 80 MG TAB PO SCH (21:03)
[2023-08-02] MEDS ORDERED: NITROGLYCERIN SL TABS 0.4 MG TAB SUBLINGUAL STA (02:00)
[2023-08-02] MEDS ORDERED: MAG HYDROX/AL HYDROX/SIMETH 30 ML, HYOSCYAMINE ELIXIR 10 ML, LIDOCAINE VISCOUS 10 ML PO ONE ×3 (02:02)
[2023-08-02 03:12] LABS: African American GFR (CKD) 35 (>60 ml/min/1.73 sqM); Anion Gap 10 mmol/L; Blood Urea Nitrogen 48 mg/dL (9-20); Calcium 8.7 mg/dL (8.4-10.2); Carbon Dioxide 18 mmol/L (22-30); Chloride 100 mmol/L (98-107); Glucose 119 mg/dL (74-99); Non-African American GFR(CKD) 31 (>60 ml/min/1.73 sqM); Potassium 4.9 mmol/L (3.5-5.1); Sodium 128 mmol/L (137-145)
[2023-08-02] MEDS: ALPRAZolam 0.25 MG TAB PO PRN ×2 (04:13→18:27)
[2023-08-02] MEDS: LEVOTHYROXINE 50 MCG TAB PO SCH (06:45)
[2023-08-02 07:12] LABS: Basophils % (A) 0 %; Eosinophils # (A) 0.5 k/uL (0-0.7); Eosinophils % (A) 6 %; HCT 35.2 % (39.0-53.0); HGB 11.5 gm/dL (13.0-17.5); Lymphocytes # (A) 0.8 k/uL (1.0-4.8); Lymphocytes % (A) 9 %; MCH 32.5 pg (25.0-35.0); MCHC 32.7 g/dL (31.0-37.0); MCV 99.4 fL (80.0-100.0); Monocytes # (A) 0.4 k/uL (0-1.0); Monocytes % (A) 5 %; Neutrophils # (A) 6.3 k/uL (1.3-7.7); Neutrophils % (A) 77 %; Platelet Count 208 k/uL (150-450); RBC 3.54 m/uL (4.30-5.90); RDW 13.5 % (11.5-15.5); WBC 8.2 k/uL (3.8-10.6)
[2023-08-02 07:38] LABS: African American GFR (CKD) 34 (>60 ml/min/1.73 sqM); Anion Gap 7 mmol/L; Blood Urea Nitrogen 45 mg/dL (9-20); Carbon Dioxide 22 mmol/L (22-30); Chloride 102 mmol/L (98-107); Glucose 114 mg/dL (74-99); Non-African American GFR(CKD) 29 (>60 ml/min/1.73 sqM); Potassium 5.4 mmol/L (3.5-5.1); Sodium 131 mmol/L (137-145)
--- NOTE | 2023-08-02 09:50 | P.PN ---
Subjective Progress Note Date: 08/02/23 This is an 88-year-old male patient with a known history of obstructive sleep apnea on home CPAP, chronic kidney disease, hypertension, hyperlipidemia, carotid stenosis, former smoker however quit 30 years ago but did smoke for approximately 40 years. He was admitted back on 07/28/2023 after presenting with generalized weakness, loss of balance and fall at home. He denied loss of consciousness. He was being treated for sinus infection at that time. He also was having some complaints of dyspnea on exertion. We're consulted today 08/01/2023 for the same. Chest x-ray revealed no acute pulmonary process. White count 8.8. Hemoglobin 12.0. Platelets 206. Sodium 132. Potassium 5.2. Bicarb 21. BUN 51. Creatinine 2.41. Glucose 131. He is seen today in consultation on the regular medical floor. He is currently resting comfortably in bed. Awake and alert in no acute distress. He denies any shortness of breath at rest. He is maintaining O2 saturations in the 90s on room air. No cough or congestion. No fever or chills. Afebrile. Hemodynamically stable. On today's evaluation of 08/02/2023, the patient is having some pain across his left anterior chest area and the pain is subsided to nitroglycerin that he was given earlier. Otherwise, he is on oxygen at 2 L and this was given to him for comfort reasons. He is doing well. His white cell count is at 8.1. Sodium level is at 141 with a potassium level of Hemoglobin of 11.7 and a platelet count of 28. Sodium is at 131, potassium is at 5.4 and the BUN is at 45 with a creatinine of 2.0 and the renal function is stable compared to yesterday. Troponins were 0.012, peaked at 0.05. The echo showed preserved LV function with an ejection fraction of 50-55%. He is currently on 2 L of oxygen by nasal cannula with a pulse ox of 96%. Pulse ox on room air is in order of 96%. Is afebrile. Objective - Vital Signs Vital signs: Vital Signs Temp 98.1 F 08/02/23 08:35 Pulse 89 08/02/23 08:35 Resp 16 08/02/23 08:35 BP 163/75 08/02/23 08:35 Pulse Ox 96 08/02/23 08:35 FiO2 Intake & Output 08/01/23 08/02/23 08/02/23 18:59 06:59 18:59 Intake Total 720 Output Total 2100 Balance 720 -2100 Intake: Oral 720 Output: Urine 2100 Other: Voiding Method Indwelling Catheter Indwelling Catheter # Bowel Movements 2 - Exam GENERAL EXAM: Alert, pleasant 88-year-old male patient, on room air, comfortable in no apparent distress. HEAD: Normocephalic. EYES: Normal reaction of pupils, equal size. NOSE: Clear with pink turbinates. THROAT: No erythema or exudates. NECK: No masses, no JVD. CHEST: No chest wall deformity. LUNGS: Equal air entry with no crackles, wheeze, rhonchi or dullness. CVS: S1 and S2 normal with no audible murmur, regular rhythm. ABDOMEN: No hepatosplenomegaly, normal bowel sounds, no guarding or rigidity. SPINE: No scoliosis or deformity SKIN: No rashes CENTRAL NERVOUS SYSTEM: No focal deficits, tone is normal in all 4 extremities. EXTREMITIES: There is no peripheral edema. No clubbing, no cyanosis. Peripheral pulses are intact. - Labs CBC & Chem 7: 08/02/23 06:25 08/02/23 06:25 Labs: Abnormal Lab Results - Last 24 Hours (Table) 08/01/23 08/02/23 08/02/23 Range/Units 07:06 02:26 06:25 RBC 3.54 L (4.30-5.90) m/uL Hgb 11.5 L (13.0-17.5) gm/dL Hct 35.2 L (39.0-53.0) % Lymphocytes # 0.8 L (1.0-4.8) k/uL Sodium 132 L 128 L (137-145) mmol/L Potassium 5.2 H (3.5-5.1) mmol/L Carbon Dioxide 21 L 18 L (22-30) mmol/L BUN 51 H 48 H (9-20) mg/dL Creatinine 2.41 H 1.94 H (0.66-1.25) mg/dL Glucose 131 H 119 H (74-99) mg/dL 08/02/23 Range/Units 06:25 RBC (4.30-5.90) m/uL Hgb (13.0-17.5) gm/dL Hct (39.0-53.0) % Lymphocytes # (1.0-4.8) k/uL Sodium 131 L (137-145) mmol/L Potassium 5.4 H (3.5-5.1) mmol/L Carbon Dioxide (22-30) mmol/L BUN 45 H (9-20) mg/dL Creatinine 2.00 H (0.66-1.25) mg/dL Glucose 114 H (74-99) mg/dL Assessment and Plan Plan: Chest pain, on that investigation. No oxygen desaturation. No evidence of any pneumonia. Patient's pain is subsided to nitroglycerin. Rule out underlying cardiac pain. Echocardiogram is showing a preserved function. Former smoker of 40 years however quit 30 years ago Obstructive sleep apnea maintained on CPAP Generalized weakness and fall at home without loss of consciousness Hypothyroidism Congestive heart failure, preserved left ventricular systolic function Hyperlipidemia Hypertension Recent sinus infection treated with Augmentin the outpatient setting Plan: Awaiting cardiology evaluation regarding the chest pain. No acute pulmonary process Stable and on room air Utilizing his home CPAP Increase his activity as tolerated We will continue to follow and make further recommendations based on his clinical status
[2023-08-02] MEDS: SODIUM BICARBONATE TAB 650 MG TAB PO SCH ×3 (09:59→19:57)
[2023-08-02] MEDS: amLODIPine 5 MG TAB PO SCH (09:59)
[2023-08-02] MEDS: TAMSULOSIN 0.4 MG CAP.ER.24H PO SCH (09:59)
[2023-08-02] MEDS: hydrALAZINE HCL 50 MG TAB PO SCH ×3 (09:59→19:57)
[2023-08-02] MEDS: FAMOTIDINE 20 MG TAB PO SCH (09:59)
[2023-08-02] MEDS: ASPIRIN 81 MG PO SCH (09:59)
[2023-08-02] MEDS: SIMETHICONE 40 MG/0.6 ML DROPS 2,000 MG/30 ML BOTTLE PO SCH ×4 (10:01→19:58)
[2023-08-02] MEDS ORDERED: FUROSEMIDE 10 MG/ML 4 ML VIAL IV STA (10:23)
[2023-08-02] MEDS: METOPROLOL TARTRATE 25 MG TAB PO SCH ×2 (10:41→19:58)
[2023-08-02] MEDS: ISOSORBIDE MONONITRATE ER 30 MG TAB.ER.24H PO SCH (10:42)
--- NOTE | 2023-08-02 11:13 | P.PN ---
Subjective Patient is seen in follow-up for acute kidney injury on chronic kidney disease. Renal function improving. Creatinine 2.0 today. Nonoliguric. Has Gill catheter for urinary retention. Oral intake fair. Good urine output with Gill catheter. Patient has had good bowel movements. Transferred to telemetry for chest pain, worsens on deep breathing. No SOB, No fever. Troponin 0.012 Objective - Vital Signs Vital signs: Vital Signs Temp 98.1 F 08/02/23 08:35 Pulse 89 08/02/23 08:40 Resp 20 08/02/23 08:40 BP 163/75 08/02/23 08:35 Pulse Ox 96 08/02/23 08:35 FiO2 Intake & Output 08/01/23 08/02/23 08/02/23 18:59 06:59 18:59 Intake Total 720 Output Total 2100 Balance 720 -2100 Intake: Oral 720 Output: Urine 2100 Other: Voiding Method Indwelling Catheter Indwelling Catheter Indwelling Catheter # Bowel Movements 2 - Exam Patient is awake, comfortable, no acute distress Examination of the heart S1 and S2 Examination of the lungs bilateral breath sounds are heard Abdomen is soft obese, distended nontender, improved from yesterday Examination of lower extremities shows 1+ edema - Labs CBC & Chem 7: 08/02/23 06:25 08/02/23 06:25 Labs: Abnormal Lab Results - Last 24 Hours (Table) 08/02/23 08/02/23 08/02/23 Range/Units 02:26 06:25 06:25 RBC 3.54 L (4.30-5.90) m/uL Hgb 11.5 L (13.0-17.5) gm/dL Hct 35.2 L (39.0-53.0) % Lymphocytes # 0.8 L (1.0-4.8) k/uL Sodium 128 L 131 L (137-145) mmol/L Potassium 5.4 H (3.5-5.1) mmol/L Carbon Dioxide 18 L (22-30) mmol/L BUN 48 H 45 H (9-20) mg/dL Creatinine 1.94 H 2.00 H (0.66-1.25) mg/dL Glucose 119 H 114 H (74-99) mg/dL Magnesium (1.6-2.3) mg/dL 08/02/23 Range/Units 06:25 RBC (4.30-5.90) m/uL Hgb (13.0-17.5) gm/dL Hct (39.0-53.0) % Lymphocytes # (1.0-4.8) k/uL Sodium (137-145) mmol/L Potassium (3.5-5.1) mmol/L Carbon Dioxide (22-30) mmol/L BUN (9-20) mg/dL Creatinine (0.66-1.25) mg/dL Glucose (74-99) mg/dL Magnesium 2.4 H (1.6-2.3) mg/dL Assessment and Plan Assessment: 1. Acute kidney injury secondary to urinary retention and use of Bactrim which will impair creatinine secretion. Creatinine 3.91 on admission and is 2.0 today. No hydronephrosis noted on kidney ultrasound. UA fairly benign. 2. Urinary retention. Nearly 1 L of urine obtained with Gill catheter placement on 07/28/2023. On Flomax. Urology following. 3. Chronic kidney disease stage IIIB with baseline creatinine 1.6-1.8 secondary to nephrosclerosis. 4. Hypertension with chronic kidney disease. 5. Metabolic acidosis secondary to acute kidney injury and GI losses. Improving. 6. Chronic kidney disease mineral bone disease maintained on Calcitrol. 7. Hypervolemic hyponatremia. 8. Ileus. Maintained on liquid diet. 9. Chest pain appears to be atypical. Troponin 0.012 10. Mild hyperkalemia associated with CKD Plan: Continue with Gill catheter Repeat labs in a.m. Add low dose loop diuretics.
[2023-08-02] MEDS: FUROSEMIDE 40 MG TAB PO SCH (11:20)
--- NOTE | 2023-08-02 13:39 | P.PN ---
Subjective Progress Note Date: 08/02/23 CHIEF COMPLAINT: Fall HISTORY OF PRESENT ILLNESS: Patient admitted to the hospital with acute kidney injury and urinary retention and enlarged prostate. Surgical service following in regards to patient's abdominal distention and ileus. Patient did have a large bowel movement yesterday. He denies any abdominal pain. Reports that the abdominal distention is improving. He does complain of chest pain. Patient had EKG changes second-degree AV block. Patient was transferred to the telemetry floor. Followed by cardiology. Afebrile. WBC 8.2 sodium 131 creatinine 2.0 PHYSICAL EXAM: VITAL SIGNS: Reviewed GENERAL: Well-developed in no acute distress. HEENT: No sclera icterus. Extraocular movements grossly intact. Moist buccal mucosa. Head is atraumatic, normocephalic. Hears conversational speech. No nasal drainage. NECK: Supple without lymphadenopathy. CHEST: Non-labored respirations and equal bilateral excursions. CARDIOVASCULAR: Palpable 2+ radial pulses. ABDOMEN: Softer. Less distended. Nontender MUSCULOSKELETAL: No clubbing or cyanosis. NEUROLOGIC: No focal or lateralizing signs. Cranial nerves II through XII grossly intact. PSYCH: Appropriate affect. Alert and oriented to person, place and time. SKIN: Well perfused. Good skin turgor. ASSESSMENT: 1. Ileus with abdominal distention 2. Acute kidney injury with urinary retention and enlarged prostate 3. Mildly elevated troponins evaluated cardiology 4. History of chronic kidney disease 5. Hyponatremia PLAN: -Continue low fiber diet. Avoid straws and carbonated beverages -Continue Mylicon drops -Encouraged patient to increase activity level -Continue cardiology workup Physician Vp note has been reviewed by physician. Signing provider agrees with the documented findings, assessment, and plan of care. Objective - Vital Signs Vital signs: Vital Signs Temp 98.1 F 08/02/23 08:35 Pulse 89 08/02/23 08:40 Resp 20 08/02/23 08:40 BP 163/75 08/02/23 08:35 Pulse Ox 96 08/02/23 08:35 FiO2 Intake & Output 08/01/23 08/02/23 08/02/23 18:59 06:59 18:59 Intake Total 720 Output Total 2100 Balance 720 -2100 Intake: Oral 720 Output: Urine 2100 Other: Voiding Method Indwelling Catheter Indwelling Catheter Indwelling Catheter # Bowel Movements 2 - Labs CBC & Chem 7: 08/02/23 06:25 08/02/23 06:25 Labs: Abnormal Lab Results - Last 24 Hours (Table) 08/02/23 08/02/23 08/02/23 Range/Units 02:26 06:25 06:25 RBC 3.54 L (4.30-5.90) m/uL Hgb 11.5 L (13.0-17.5) gm/dL Hct 35.2 L (39.0-53.0) % Lymphocytes # 0.8 L (1.0-4.8) k/uL Sodium 128 L 131 L (137-145) mmol/L Potassium 5.4 H (3.5-5.1) mmol/L Carbon Dioxide 18 L (22-30) mmol/L BUN 48 H 45 H (9-20) mg/dL Creatinine 1.94 H 2.00 H (0.66-1.25) mg/dL Glucose 119 H 114 H (74-99) mg/dL Magnesium (1.6-2.3) mg/dL 08/02/23 Range/Units 06:25 RBC (4.30-5.90) m/uL Hgb (13.0-17.5) gm/dL Hct (39.0-53.0) % Lymphocytes # (1.0-4.8) k/uL Sodium (137-145) mmol/L Potassium (3.5-5.1) mmol/L Carbon Dioxide (22-30) mmol/L BUN (9-20) mg/dL Creatinine (0.66-1.25) mg/dL Glucose (74-99) mg/dL Magnesium 2.4 H (1.6-2.3) mg/dL
--- NOTE | 2023-08-02 13:45 | P.PN ---
Subjective Progress Note Date: 08/02/23 HISTORY OF PRESENT ILLNESS: This is a 88-year-old male with a past medical history significant for hypertension, hyperlipidemia, carotid stenosis, obstructive sleep apnea, and former nicotine dependence. Patient follows in the office with Dr. Restrepo. We have been asked to see the patient in consultation for abnormal troponins. Patient is seen today in the emergency center waiting for a bed on the [facility] floor he denies having loss of consciousness. He denies having any chest pain. He has chronic shortness of breath all the time. The patient presented to the hospital after sustaining a fall. The patient was noted to have urinary retention and a Gill catheter was placed and he has been seen by nephrology for acute kidney injury. It is noted that the patient was started on Bactrim last week for a facial infection. The patient's blood pressures were noted to be elevated with systolics in the 170s and 180s. His hydralazine was increased per nephrology. * EKG reveals sinus mechanism with low voltage QRS. Computer interpretation reveals atrial fibrillation which is incorrect. * Chest xray low lung volumes with generalized hazy appearance could represent atelectasis versus pulmonary edema * Laboratory data: Troponin 0.039. 0.055. * Current home cardiac medications include hydralazine 50 mg 3 times a day, Lasix 60 mg every 48 hours, amlodipine 5 mg daily, Lasix 40 mg every 48 hours, pravastatin 80 mg at night. * Most recent echocardiogram obtained in November 2016 revealed ejection fraction 55% * Patient underwent dobutamine stress test in May 2022 which was negative for ischemia but did reveal fixed inferior wall defect. 07/31/2023 telemetry was reviewed and it shows that patient has irregular heart rate because of sinus rhythm and significant PACs and PVCs. It is less likely atrial fibrillation. He denies any chest pain chest pressure. He does report mild shortness of breath. His Lasix has been discontinued because of BA which is most likely due to Bactrim use in setting of his chronic kidney disease and urinary retention. 08/01 Patient was cleared for discharge by cardiology but another consult has been admitted for chest pain and EKG changes. Apparently last evening patient states he woke up around 1 AM with left-sided chest pain that went to his back. He had a patient of a #6 out of 10 and was given nitroglycerin and GI cocktail the pain went down to a #2 over time. He denies any tenderness but he does have chest pain of a #3 one every takes a deep breath to the same area. Patient noted to have a little bit of lower extremity edema. Blood pressure 163/75, heart rate in the 70s and 80s, pulse ox 96% on 2 L nasal cannula, afebrile. Repeat blood work reveals hemoglobin 11.5, potassium 5.4, BUN 45 and creatinine 2. EKG reviewed patient had Mobitz type I with conduction delay. REVIEW OF SYSTEMS: At the time of my exam: CONSTITUTIONAL: Denies fever or chills. HEENT: Denies blurred vision, vision changes, or eye pain. Denies hemoptysis CARDIOVASCULAR: Denies chest pain. Denies orthopnea. Denies PND. Denies palpitations RESPIRATORY: Chronic shortness of breath. GASTROINTESTINAL: Denies abdominal pain. Denies nausea or vomiting. HEMATOLOGIC: Denies bleeding disorders. GENITOURINARY: Denies any blood in urine. SKIN: Denies pruitis. Denies rash. PHYSICAL EXAM: VITAL SIGNS: Reviewed. GENERAL: Well-developed in no acute distress. HEENT: Head is normocephalic. Pupils are equal, round. Sclerae anicteric. Mucous membranes of the mouth are moist. Neck supple. No JVD or thyromegaly LUNGS: Respirations even and unlabored. Lungs essentially clear to auscultation bilaterally. HEART: Regular rate and rhythm. S1 and S2 heard. ABDOMEN: Soft. Nondistended. Nontender. EXTREMITIES: Normal range of motion. No clubbing or cyanosis. Peripheral pulses intact. No lower extremity edema NEUROLOGIC: Awake and alert. Oriented x 3. ASSESSMENT: Status post mechanical fall without loss of consciousness, likely noncardiac Acute kidney injury and chronic kidney disease Bactrim use related acute kidney injury Urinary retention requiring Gill catheter placement Frequent PACs and PVCs Abnormal troponins, flat, secondary to above, no evidence of acute coronary syndrome Hypertension Hyperlipidemia Carotid stenosis Obstructive sleep apnea Former nicotine dependence PLAN: Echocardiogram showed an EF of 55% with no concerning LVOT obstruction. Continue metoprolol 25 mg twice a day to suppress PACs and PVCs. Continue hydralazine for blood pressure control. Hold VERNON inhibitor is due to BA. AK has been improving. Continue Lasix per nephrology Add Imdur 30 mg daily and one dose of IV Lasix 40 mg. Follow up outpatient with cardiology Dr. Restrepo. Nurse practitioner note has been reviewed, I agree with the documented findings and plan of care. Patient was seen and examined. Objective - Vital Signs Vital signs: Vital Signs Temp 98.1 F 08/02/23 08:35 Pulse 89 08/02/23 08:35 Resp 16 08/02/23 08:35 BP 163/75 08/02/23 08:35 Pulse Ox 96 08/02/23 08:35 FiO2 Intake & Output 08/01/23 08/02/23 08/02/23 18:59 06:59 18:59 Intake Total 720 Output Total 2100 Balance 720 -2100 Intake: Oral 720 Output: Urine 2100 Other: Voiding Method Indwelling Catheter Indwelling Catheter # Bowel Movements 2 - Labs CBC & Chem 7: 08/02/23 06:25 08/02/23 06:25 Labs: Abnormal Lab Results - Last 24 Hours (Table) 08/01/23 08/02/23 08/02/23 Range/Units 07:06 02:26 06:25 RBC 3.54 L (4.30-5.90) m/uL Hgb 11.5 L (13.0-17.5) gm/dL Hct 35.2 L (39.0-53.0) % Lymphocytes # 0.8 L (1.0-4.8) k/uL Sodium 132 L 128 L (137-145) mmol/L Potassium 5.2 H (3.5-5.1) mmol/L Carbon Dioxide 21 L 18 L (22-30) mmol/L BUN 51 H 48 H (9-20) mg/dL Creatinine 2.41 H 1.94 H (0.66-1.25) mg/dL Glucose 131 H 119 H (74-99) mg/dL 08/02/23 Range/Units 06:25 RBC (4.30-5.90) m/uL Hgb (13.0-17.5) gm/dL Hct (39.0-53.0) % Lymphocytes # (1.0-4.8) k/uL Sodium 131 L (137-145) mmol/L Potassium 5.4 H (3.5-5.1) mmol/L Carbon Dioxide (22-30) mmol/L BUN 45 H (9-20) mg/dL Creatinine 2.00 H (0.66-1.25) mg/dL Glucose 114 H (74-99) mg/dL
[2023-08-02] MEDS: ACETAMINOPHEN TAB 500 MG TAB PO SCH (15:02)
--- NOTE | 2023-08-02 16:20 | PN ---
PROGRESS NOTE DATE OF SERVICE: 08/02/2023 SUBJECTIVE: This is an 88-year-old gentleman with multiple medical problems including acute renal failure and abdominal distention. He is also complaining of chest pain, which is felt in the anterior part of the chest. The patient had EKG and troponins, and he was transferred to medical floor. The patient also had some mild hyperkalemia. PAST MEDICAL HISTORY: Reviewed. REVIEW OF SYSTEMS: Fourteen-point review is negative except as mentioned earlier. CURRENT MEDICATIONS: Reviewed include Imdur 30 mg daily. PHYSICAL EXAMINATION: VITAL SIGNS: Pulse is 81, blood pressure 138/63, respirations 16. HEENT: Conjunctivae are normal. NECK: No jugular venous distention. CARDIOVASCULAR: S1 and S2 muffled. RESPIRATORY: Breath sounds diminished at the bases. ABDOMEN: Soft. Obese. LEGS: No edema. NERVOUS SYSTEM: Nonfocal. LABORATORY DATA: Noted. ASSESSMENT: 1. Acute renal failure with possible acute tubular necrosis and acute interstitial nephritis, possibly drug-induced, Bactrim. 2. Mild hyperkalemia. 3. Troponin 0.05, indeterminate, possible coronary artery disease. 4. Diarrhea, possibly infectious. 5. Possible abdominal ileus. 6. Weakness and fall. 7. Morbid obesity. 8. Hypertension. 9. Hyperlipidemia. 10.Sleep apnea. 11.History of benign prostatic hyperplasia. RECOMMENDATIONS: Recommend to continue current medical management. Continue symptomatic treatment. Otherwise, at this time, we will continue to monitor. Imdur, antiplatelet agents. Follow closely with Cardiology. A 2D echo was reviewed. Repeat labs. Low-potassium diet. Guarded prognosis. Further recommendations to follow. Left ventricular wall motions are normal. MMODL / IJN: [id number] /
[2023-08-02] MEDS: SODIUM CHLORIDE 0.65% NASAL SPRAY 44 ML BTL NASAL PRN (19:53)
[2023-08-02] MEDS: PRAVASTATIN SODIUM 80 MG TAB PO SCH (19:57)
[2023-08-02] MEDS: PANTOPRAZOLE 40 MG/10 ML VIAL IVP SCH (19:58)
[2023-08-03] MEDS: LEVOTHYROXINE 50 MCG TAB PO SCH (06:09)
[2023-08-03] MEDS: ASPIRIN 81 MG PO SCH (08:55)
[2023-08-03] MEDS: METOPROLOL TARTRATE 25 MG TAB PO SCH (08:55)
[2023-08-03] MEDS: PANTOPRAZOLE 40 MG/10 ML VIAL IVP SCH (08:55)
[2023-08-03] MEDS: amLODIPine 5 MG TAB PO SCH (08:55)
[2023-08-03] MEDS: ISOSORBIDE MONONITRATE ER 30 MG TAB.ER.24H PO SCH (08:55)
[2023-08-03] MEDS: FAMOTIDINE 20 MG TAB PO SCH (08:55)
[2023-08-03] MEDS: FUROSEMIDE 40 MG TAB PO SCH (08:55)
[2023-08-03] MEDS: hydrALAZINE HCL 50 MG TAB PO SCH ×2 (08:55→16:29)
[2023-08-03] MEDS: SODIUM BICARBONATE TAB 650 MG TAB PO SCH ×2 (08:55→16:29)
[2023-08-03] MEDS: SIMETHICONE 40 MG/0.6 ML DROPS 2,000 MG/30 ML BOTTLE PO SCH ×2 (08:56→13:32)
[2023-08-03] MEDS: TAMSULOSIN 0.4 MG CAP.ER.24H PO SCH (08:56)
[2023-08-03 09:03] VITALS: TEMP 98.3
--- NOTE | 2023-08-03 09:09 | P.PN ---
Subjective Progress Note Date: 08/03/23 This is an 88-year-old male patient with a known history of obstructive sleep apnea on home CPAP, chronic kidney disease, hypertension, hyperlipidemia, carotid stenosis, former smoker however quit 30 years ago but did smoke for approximately 40 years. He was admitted back on 07/28/2023 after presenting with generalized weakness, loss of balance and fall at home. He denied loss of consciousness. He was being treated for sinus infection at that time. He also was having some complaints of dyspnea on exertion. We're consulted today 08/01/2023 for the same. Chest x-ray revealed no acute pulmonary process. White count 8.8. Hemoglobin 12.0. Platelets 206. Sodium 132. Potassium 5.2. Bicarb 21. BUN 51. Creatinine 2.41. Glucose 131. He is seen today in consultation on the regular medical floor. He is currently resting comfortably in bed. Awake and alert in no acute distress. He denies any shortness of breath at rest. He is maintaining O2 saturations in the 90s on room air. No cough or congestion. No fever or chills. Afebrile. Hemodynamically stable. On today's evaluation of 08/02/2023, the patient is having some pain across his left anterior chest area and the pain is subsided to nitroglycerin that he was given earlier. Otherwise, he is on oxygen at 2 L and this was given to him for comfort reasons. He is doing well. His white cell count is at 8.1. Sodium level is at 141 with a potassium level of Hemoglobin of 11.7 and a platelet count of 28. Sodium is at 131, potassium is at 5.4 and the BUN is at 45 with a creatinine of 2.0 and the renal function is stable compared to yesterday. Troponins were 0.012, peaked at 0.05. The echo showed preserved LV function with an ejection fraction of 50-55%. He is currently on 2 L of oxygen by nasal cannula with a pulse ox of 96%. Pulse ox on room air is in order of 96%. Is afebrile. On the 2022, the patient is fully of any chest pain. He denies having any specific complaints. No shortness of breath. No chest pain. Passing bowel movements. He still has a Gill catheter in place. The labs from today shows improvement of creatinine which is down to 2.0 with a BUN of 45 and a sodium level is at 131 and a potassium level is at 5.4. The white cell count is at 8.2 with a hemoglobin of 11.5 and a platelet count of 28. Echocardiogram showed a preserved LV function with an ejection fraction of 50-55%. The patient is currently on room air oxygen. The patient has no other active issues for now. He remains on Lasix 40 mg by mouth daily. Objective - Vital Signs Vital signs: Vital Signs Temp 98.3 F 08/03/23 08:49 Pulse 71 08/03/23 08:49 Resp 18 08/03/23 08:49 BP 134/61 08/03/23 08:49 Pulse Ox 100 08/03/23 08:49 FiO2 Intake & Output 08/02/23 08/03/23 08/03/23 18:59 06:59 18:59 Output Total 1200 600 Balance -1200 -600 Output: Urine 1200 600 Other: Voiding Method Indwelling Catheter Indwelling Catheter # Voids 1 # Bowel Movements 1 - Exam GENERAL EXAM: Alert, pleasant 88-year-old male patient, on room air, comfortable in no apparent distress. HEAD: Normocephalic. EYES: Normal reaction of pupils, equal size. NOSE: Clear with pink turbinates. THROAT: No erythema or exudates. NECK: No masses, no JVD. CHEST: No chest wall deformity. LUNGS: Equal air entry with no crackles, wheeze, rhonchi or dullness. CVS: S1 and S2 normal with no audible murmur, regular rhythm. ABDOMEN: No hepatosplenomegaly, normal bowel sounds, no guarding or rigidity. SPINE: No scoliosis or deformity SKIN: No rashes CENTRAL NERVOUS SYSTEM: No focal deficits, tone is normal in all 4 extremities. EXTREMITIES: There is no peripheral edema. No clubbing, no cyanosis. Peripheral pulses are intact. - Labs CBC & Chem 7: 08/02/23 06:25 08/02/23 06:25 Labs: Abnormal Lab Results - Last 24 Hours (Table) 08/02/23 Range/Units 06:25 Magnesium 2.4 H (1.6-2.3) mg/dL Assessment and Plan Plan: Chest pain, on that investigation. No oxygen desaturation. No evidence of any pneumonia. Patient's pain is subsided to nitroglycerin. Rule out underlying cardiac pain. Echocardiogram is showing a preserved function. The patient is currently free of any chest pain. No pain overnight. Clinically stable. Hemodynamically stable on room air oxygen. Former smoker of 40 years however quit 30 years ago Acute kidney injury on top of chronic kidney failure, improved and the creatinine is down to 2.0. Patient has a Gill catheter in place. The Gill catheter was inserted for urinary retention. Obstructive sleep apnea maintained on CPAP Generalized weakness and fall at home without loss of consciousness Hypothyroidism Congestive heart failure, preserved left ventricular systolic function Hyperlipidemia Hypertension Recent sinus infection treated with Augmentin the outpatient setting Plan: Patient is free of any chest pain No acute pulmonary process Renal function continues to improve Gill catheter can be discontinued Stable and on room air Utilizing his home CPAP Increase his activity as tolerated We will continue to follow and make further recommendations based on his clinical status
[2023-08-03 10:23] LABS: Basophils % (A) 0 %; Eosinophils # (A) 0.3 k/uL (0-0.7); Eosinophils % (A) 4 %; HCT 34.6 % (39.0-53.0); HGB 11.1 gm/dL (13.0-17.5); Lymphocytes # (A) 0.7 k/uL (1.0-4.8); Lymphocytes % (A) 9 %; MCH 32.4 pg (25.0-35.0); MCHC 32.2 g/dL (31.0-37.0); MCV 100.4 fL (80.0-100.0); Mean Platelet Volume 8.3; Monocytes # (A) 0.4 k/uL (0-1.0); Monocytes % (A) 4 %; Neutrophils # (A) 6.6 k/uL (1.3-7.7); Neutrophils % (A) 81 %; Platelet Count 223 k/uL (150-450); RBC 3.44 m/uL (4.30-5.90); RDW 13.6 % (11.5-15.5); WBC 8.2 k/uL (3.8-10.6)
[2023-08-03 10:35] LABS: ALT 30 U/L (4-49); AST 26 U/L (17-59); African American GFR (CKD) 30 (>60 ml/min/1.73 sqM); Albumin 3.4 g/dL (3.5-5.0); Alkaline Phosphatase 77 U/L (38-126); Anion Gap 11 mmol/L; Blood Urea Nitrogen 48 mg/dL (9-20); Calcium 8.9 mg/dL (8.4-10.2); Carbon Dioxide 20 mmol/L (22-30); Chloride 101 mmol/L (98-107); Glucose 168 mg/dL (74-99); Non-African American GFR(CKD) 26 (>60 ml/min/1.73 sqM); Potassium 4.7 mmol/L (3.5-5.1); Sodium 132 mmol/L (137-145); Total Bilirubin 0.5 mg/dL (0.2-1.3); Total Protein 5.9 g/dL (6.3-8.2)
--- NOTE | 2023-08-03 11:10 | P.PN ---
Subjective Patient is seen in follow-up for acute kidney injury on chronic kidney disease. Renal function improving. Creatinine 2.2 today. Nonoliguric. Has Gill catheter for urinary retention. Oral intake fair. Good urine output with Gill catheter. Patient has had good bowel movements. No significant complaints today. Patient wants to go home. Objective - Vital Signs Vital signs: Vital Signs Temp 98.3 F 08/03/23 08:49 Pulse 71 08/03/23 08:49 Resp 18 08/03/23 08:49 BP 134/61 08/03/23 08:49 Pulse Ox 94 L 08/03/23 10:04 FiO2 Intake & Output 08/02/23 08/03/23 08/03/23 18:59 06:59 18:59 Output Total 1200 600 Balance -1200 -600 Output: Urine 1200 600 Other: Voiding Method Indwelling Catheter Indwelling Catheter Indwelling Catheter # Voids 1 # Bowel Movements 1 - Exam Patient is awake, comfortable, no acute distress Examination of the heart S1 and S2 Examination of the lungs bilateral breath sounds are heard Abdomen is soft obese, distended nontender, Examination of lower extremities shows 1+ edema [employer] exam grossly intact - Labs CBC & Chem 7: 08/03/23 08:20 08/03/23 08:20 Labs: Abnormal Lab Results - Last 24 Hours (Table) 08/03/23 08/03/23 Range/Units 08:20 08:20 RBC 3.44 L (4.30-5.90) m/uL Hgb 11.1 L (13.0-17.5) gm/dL Hct 34.6 L (39.0-53.0) % MCV 100.4 H (80.0-100.0) fL Lymphocytes # 0.7 L (1.0-4.8) k/uL Sodium 132 L (137-145) mmol/L Carbon Dioxide 20 L (22-30) mmol/L BUN 48 H (9-20) mg/dL Creatinine 2.21 H (0.66-1.25) mg/dL Glucose 168 H (74-99) mg/dL Total Protein 5.9 L (6.3-8.2) g/dL Albumin 3.4 L (3.5-5.0) g/dL Assessment and Plan Assessment: 1. Acute kidney injury secondary to urinary retention and use of Bactrim which will impair creatinine secretion. Creatinine 3.91 on admission and is 2.2 today. No hydronephrosis noted on kidney ultrasound. UA fairly benign. 2. Urinary retention. Nearly 1 L of urine obtained with Gill catheter placement on 07/28/2023. On Flomax. Urology following. 3. Chronic kidney disease stage IIIB with baseline creatinine 1.6-1.8 secondary to nephrosclerosis. 4. Hypertension with chronic kidney disease. 5. Metabolic acidosis secondary to acute kidney injury and GI losses. Improving. 6. Chronic kidney disease mineral bone disease maintained on Calcitrol. 7. Hypervolemic hyponatremia. 8. Ileus. Maintained on liquid diet. 9. Chest pain appears to be atypical. Troponin 0.012 10. Mild hyperkalemia associated with CKD Plan: Voiding trial and reinsertion of Gill catheter if patient continues to have urine retention. Follow-up as outpatient with urology Continue with low-dose loop diuretics Follow-up as outpatient for CK D
[2023-08-03 11:28] VITALS: RESP 17
--- NOTE | 2023-08-03 13:17 | P.PN ---
Subjective Progress Note Date: 08/03/23 CHIEF COMPLAINT: Fall HISTORY OF PRESENT ILLNESS: Patient admitted to the hospital with acute kidney injury and urinary retention and enlarged prostate. Surgical service following in regards to patient's abdominal distention and ileus. Patient reports that his abdomen is back to its normal size. He has had bowel movement this a.m. but does report it's smaller. He is having flatus. Denies any nausea or vomiting. Tolerating diet. Denies any abdominal pain. He is sitting at bedside chair. Also followed by cardiology regarding abnormal EKG. Afebrile. WBC is 8.2H 11.1 platelets 223 sodium is 132 creatinine up at 2.2 we will PHYSICAL EXAM: VITAL SIGNS: Reviewed GENERAL: Well-developed in no acute distress. HEENT: No sclera icterus. Extraocular movements grossly intact. Moist buccal mucosa. Head is atraumatic, normocephalic. Hears conversational speech. No nasal drainage. NECK: Supple without lymphadenopathy. CHEST: Non-labored respirations and equal bilateral excursions. CARDIOVASCULAR: Palpable 2+ radial pulses. ABDOMEN: Soft. Nontender. Nondistended. Patient is back to his normal abdomen. MUSCULOSKELETAL: No clubbing or cyanosis. NEUROLOGIC: No focal or lateralizing signs. Cranial nerves II through XII grossly intact. PSYCH: Appropriate affect. Alert and oriented to person, place and time. SKIN: Well perfused. Good skin turgor. ASSESSMENT: 1. Ileus with abdominal distention improving 2. Acute kidney injury with urinary retention and enlarged prostate 3. Mildly elevated troponins evaluated cardiology 4. History of chronic kidney disease 5. Hyponatremia 6. Abnormal EKG followed by cardiology PLAN: -Continue low fiber diet. Avoid straws and carbonated beverages -Continue Mylicon drops -Encouraged patient to increase activity level -Continue cardiology workup -Hyponatremia and acute kidney injury managed by nephrology Physician Public Welfare Director note has been reviewed by physician. Signing provider agrees with the documented findings, assessment, and plan of care. Objective - Vital Signs Vital signs: Vital Signs Temp 98.3 F 08/03/23 08:49 Pulse 59 L 08/03/23 11:25 Resp 17 08/03/23 11:25 BP 128/57 08/03/23 11:25 Pulse Ox 95 08/03/23 11:25 FiO2 Intake & Output 08/02/23 08/03/23 08/03/23 18:59 06:59 18:59 Output Total 1200 600 Balance -1200 -600 Output: Urine 1200 600 Other: Voiding Method Indwelling Catheter Indwelling Catheter Indwelling Catheter # Voids 1 # Bowel Movements 1 1 - Labs CBC & Chem 7: 08/03/23 08:20 08/03/23 08:20 Labs: Abnormal Lab Results - Last 24 Hours (Table) 08/03/23 08/03/23 Range/Units 08:20 08:20 RBC 3.44 L (4.30-5.90) m/uL Hgb 11.1 L (13.0-17.5) gm/dL Hct 34.6 L (39.0-53.0) % MCV 100.4 H (80.0-100.0) fL Lymphocytes # 0.7 L (1.0-4.8) k/uL Sodium 132 L (137-145) mmol/L Carbon Dioxide 20 L (22-30) mmol/L BUN 48 H (9-20) mg/dL Creatinine 2.21 H (0.66-1.25) mg/dL Glucose 168 H (74-99) mg/dL Total Protein 5.9 L (6.3-8.2) g/dL Albumin 3.4 L (3.5-5.0) g/dL
[2023-08-03] MEDS: ALPRAZolam 0.25 MG TAB PO PRN (13:31)
[2023-08-03] MEDS: ACETAMINOPHEN TAB 500 MG TAB PO SCH (13:34)
[2023-08-03 14:16] VITALS: BMI 41.3
--- NOTE | 2023-08-03 14:27 | P.PN ---
Subjective Progress Note Date: 08/03/23 HISTORY OF PRESENT ILLNESS: This is a 88-year-old male with a past medical history significant for hypertension, hyperlipidemia, carotid stenosis, obstructive sleep apnea, and former nicotine dependence. Patient follows in the office with Dr. Restrepo. We have been asked to see the patient in consultation for abnormal troponins. Patient is seen today in the emergency center waiting for a bed on the [facility] floor he denies having loss of consciousness. He denies having any chest pain. He has chronic shortness of breath all the time. The patient presented to the hospital after sustaining a fall. The patient was noted to have urinary retention and a Gill catheter was placed and he has been seen by nephrology for acute kidney injury. It is noted that the patient was started on Bactrim last week for a facial infection. The patient's blood pressures were noted to be elevated with systolics in the 170s and 180s. His hydralazine was increased per nephrology. * EKG reveals sinus mechanism with low voltage QRS. Computer interpretation reveals atrial fibrillation which is incorrect. * Chest xray low lung volumes with generalized hazy appearance could represent atelectasis versus pulmonary edema * Laboratory data: Troponin 0.039. 0.055. * Current home cardiac medications include hydralazine 50 mg 3 times a day, Lasix 60 mg every 48 hours, amlodipine 5 mg daily, Lasix 40 mg every 48 hours, pravastatin 80 mg at night. * Most recent echocardiogram obtained in November 2016 revealed ejection fraction 55% * Patient underwent dobutamine stress test in May 2022 which was negative for ischemia but did reveal fixed inferior wall defect. 07/31/2023 telemetry was reviewed and it shows that patient has irregular heart rate because of sinus rhythm and significant PACs and PVCs. It is less likely atrial fibrillation. He denies any chest pain chest pressure. He does report mild shortness of breath. His Lasix has been discontinued because of BA which is most likely due to Bactrim use in setting of his chronic kidney disease and urinary retention. 08/02 Patient was cleared for discharge by cardiology but another consult has been admitted for chest pain and EKG changes. Apparently last evening patient states he woke up around 1 AM with left-sided chest pain that went to his back. He had a patient of a #6 out of 10 and was given nitroglycerin and GI cocktail the pain went down to a #2 over time. He denies any tenderness but he does have chest pain of a #3 one every takes a deep breath to the same area. Patient noted to have a little bit of lower extremity edema. Blood pressure 163/75, heart rate in the 70s and 80s, pulse ox 96% on 2 L nasal cannula, afebrile. Repeat blood work reveals hemoglobin 11.5, potassium 5.4, BUN 45 and creatinine 2. EKG reviewed patient had Mobitz type I with conduction delay. 08/03 The patient states that he slept well during night and he has no problems this morning. No chest pain. Blood pressure is 128/57, heart rate in the 50s to 70s, he has been afebrile, pulse ox 95% on room air. Repeat blood work reveals hemoglobin 11.1. BUN 48 creatinine 2.21, sodium 132 and potassium 4.7, CO2 20. REVIEW OF SYSTEMS: At the time of my exam: CONSTITUTIONAL: Denies fever or chills. HEENT: Denies blurred vision, vision changes, or eye pain. Denies hemoptysis CARDIOVASCULAR: Denies chest pain. Denies orthopnea. Denies PND. Denies palpitations RESPIRATORY: Chronic shortness of breath. GASTROINTESTINAL: Denies abdominal pain. Denies nausea or vomiting. HEMATOLOGIC: Denies bleeding disorders. GENITOURINARY: Denies any blood in urine. SKIN: Denies pruitis. Denies rash. PHYSICAL EXAM: VITAL SIGNS: Reviewed. GENERAL: Well-developed in no acute distress. HEENT: Head is normocephalic. Pupils are equal, round. Sclerae anicteric. LUNGS: Respirations even and unlabored. Lungs essentially clear to auscultation bilaterally. HEART: Regular rate and rhythm. S1 and S2 heard. ABDOMEN: Soft. Nondistended. Nontender. EXTREMITIES: Normal range of motion. No clubbing or cyanosis. Peripheral pulses intact. No lower extremity edema NEUROLOGIC: Awake and alert. Oriented x 3. ASSESSMENT: Status post mechanical fall without loss of consciousness, likely noncardiac Acute kidney injury and chronic kidney disease Bactrim use related acute kidney injury Urinary retention requiring Gill catheter placement Frequent PACs and PVCs Abnormal troponins, flat, secondary to above, no evidence of acute coronary syndrome Hypertension Hyperlipidemia Carotid stenosis Obstructive sleep apnea Former nicotine dependence PLAN: Echocardiogram showed an EF of 55% with no concerning LVOT obstruction. Continue metoprolol 25 mg twice a day to suppress PACs and PVCs. Continue hydralazine for blood pressure control. Hold VERNON inhibitor is due to BA. AK has been improving. Continue Lasix per nephrology Continue Imdur 30 mg daily Follow up outpatient with cardiology Dr. Restrepo. Nurse practitioner note has been reviewed, I agree with the documented findings and plan of care. Patient was seen and examined. Objective - Vital Signs Vital signs: Vital Signs Temp 98.3 F 08/03/23 08:49 Pulse 71 08/03/23 08:49 Resp 18 08/03/23 08:49 BP 134/61 08/03/23 08:49 Pulse Ox 94 L 08/03/23 10:04 FiO2 Intake & Output 08/02/23 08/03/23 08/03/23 18:59 06:59 18:59 Output Total 1200 600 Balance -1200 -600 Output: Urine 1200 600 Other: Voiding Method Indwelling Catheter Indwelling Catheter Indwelling Catheter # Voids 1 # Bowel Movements 1 - Labs CBC & Chem 7: 08/03/23 08:20 08/03/23 08:20 Labs: Abnormal Lab Results - Last 24 Hours (Table) 08/03/23 08/03/23 Range/Units 08:20 08:20 RBC 3.44 L (4.30-5.90) m/uL Hgb 11.1 L (13.0-17.5) gm/dL Hct 34.6 L (39.0-53.0) % MCV 100.4 H (80.0-100.0) fL Lymphocytes # 0.7 L (1.0-4.8) k/uL Sodium 132 L (137-145) mmol/L Carbon Dioxide 20 L (22-30) mmol/L BUN 48 H (9-20) mg/dL Creatinine 2.21 H (0.66-1.25) mg/dL Glucose 168 H (74-99) mg/dL Total Protein 5.9 L (6.3-8.2) g/dL Albumin 3.4 L (3.5-5.0) g/dL
[2023-08-03 15:27] VITALS: BP 114/66; PULSE 72
--- NOTE | 2023-08-03 19:32 | DS ---
DISCHARGE SUMMARY FINAL DIAGNOSES: 1. Acute renal failure with possible acute tubular necrosis and acute interstitial nephritis, possibly drug-induced secondary to Bactrim. 2. Mild hyperkalemia, improved. 3. Troponin 0.05, indeterminate, possibly coronary artery disease. 4. Diarrhea, possibly infectious. 5. Abdominal ileus, improved. 6. Weakness and fall. 7. Morbid obesity. 8. Hypertension. 9. Hyperlipidemia. 10.Sleep apnea. 11.History of benign prostatic hyperplasia. DISCHARGE DISPOSITION: The patient will be discharged in stable condition with guarded prognosis. HISTORY OF PRESENT ILLNESS: This is an 88-year-old gentleman with a past medical history of multiple medical problems, who was admitted with acute renal failure, and the patient was treated symptomatically. Nephrology saw the patient. The patient also had multiple other medical issues as mentioned earlier. Creatinine improved to 2.21. Multiple consultants evaluated the patient and recommended discharge. PHYSICAL EXAMINATION: VITAL SIGNS: Stable. CARDIOVASCULAR: S1 and S2 muffled. ABDOMEN: Soft. NERVOUS SYSTEM: No focal deficits. CONDITION: The patient will be discharged in stable condition with guarded prognosis. DISCHARGE ADVICE AND MEDICATIONS: Follow up with Dr. Coffey. Follow up with Nephrology and Urology. The medications changed as follows: 1. Flomax 0.4 daily. 2. Imdur 30 mg daily. 3. Lopressor 25 mg p.o. b.i.d. 4. Pepcid 20 mg p.o. daily. 5. Hydralazine 100 mg p.o. t.i.d. 6. Lasix 40 mg p.o. daily. 7. Sodium bicarbonate 650 mg t.i.d. 8. Tylenol. Please refer to the medication requisition sheet for list of medications. Once again, the patient will be discharged in stable condition with guarded prognosis. TOTAL TAKEN TIME: 35 minutes. MMODL / IJN: [id number] /
== END 2023-08-03 16:51 | disposition home or self-care (01) | DRG 683 ==
LOC: EC 16:38 → 3SCARD 23:11 → 5NMEDONC 07-29 15:38 → 3SCARD 08-02 03:28
PROVIDERS: ADMIT Hospitalist; ATTEND Hospitalist
DX: N17.0 Acute kidney failure with tubular necrosis (principal); A09 Infectious gastroenteritis and colitis, unspecified; E87.1 Hypo-osmolality and hyponatremia; I13.0 Hypertensive heart and chronic kidney disease with heart failure and stage 1 through stage 4 chronic kidney disease, or unspecified chronic kidney disease; I50.32 Chronic diastolic (congestive) heart failure; E87.20 Acidosis, unspecified; K56.7 Ileus, unspecified; Z68.41 Body mass index [BMI] 40.0-44.9, adult; W01.0XXA Fall on same level from slipping, tripping and stumbling without subsequent striking against object, initial encounter; Y93.E2 Activity, laundry; Y92.018 Other place in single-family (private) house as the place of occurrence of the external cause; Z11.52 Encounter for screening for COVID-19; N10 Acute pyelonephritis; E78.5 Hyperlipidemia, unspecified; N18.32 Chronic kidney disease, stage 3b; E66.01 Morbid (severe) obesity due to excess calories; M19.90 Unspecified osteoarthritis, unspecified site; M10.9 Gout, unspecified; G47.33 Obstructive sleep apnea (adult) (pediatric); R73.03 Prediabetes; R33.9 Retention of urine, unspecified; R79.89 Other specified abnormal findings of blood chemistry; T36.8X5A Adverse effect of other systemic antibiotics, initial encounter; N40.1 Benign prostatic hyperplasia with lower urinary tract symptoms; R33.8 Other retention of urine; Z96.652 Presence of left artificial knee joint; M89.8X9 Other specified disorders of bone, unspecified site; J32.9 Chronic sinusitis, unspecified; R07.89 Other chest pain; I25.10 Atherosclerotic heart disease of native coronary artery without angina pectoris; E87.5 Hyperkalemia; E03.9 Hypothyroidism, unspecified; I65.29 Occlusion and stenosis of unspecified carotid artery; I44.1 Atrioventricular block, second degree; Z88.0 Allergy status to penicillin; Z87.891 Personal history of nicotine dependence; Z79.899 Other long term (current) drug therapy; Z79.890 Hormone replacement therapy; Z79.82 Long term (current) use of aspirin; Z71.3 Dietary counseling and surveillance
CPT/HCPCS: 36415; 51702; 51798; 70450; 70486; 71045; 71046; 72125; 74018; 74176; 76770; 80048; 80053; 81003; 82550; 82553; 83605; 83735; 83880; 83930; 83935; 84484; 85025; 87324; 87635; 93005; 93306; 94660; 96361; 96374; 96375; 96376; 99285

== ENCOUNTER → 2024-01-06 | Outpatient (CLI) | payer MEDICARE, BC ==
[2024-01-06 10:41] VITALS: BP 125/64; PULSE 62; RESP 16; TEMP 97.6
--- NOTE | 2024-01-06 10:54 | P.PN ---
Subjective DATE: 01/06/2024 FOLLOW UP VISIT. Patient with obstructive sleep apnea hypopnea syndrome return to sleep center for follow-up visit. Information from previous visit have been reviewed. Patient is using PAP equipment every night for the whole night, getting PAP supplies in time. The patient does not have significant problems with the mask, PAP unit and humidification. [place] sleepiness scale is 3. I checked information from PAP unit. PAP unit pressure 11 cm H2O. Usage is 100% for more then 4 hours, average 10.25 hours per night. Leak is 5.4 l/m, which is in acceptable range. Apnea Hypopnea Index is increased comparing with the previous visit to 7.9, during previous visit with the same level of pressure it was 1.4. Leak is less than during previous visit MEDICATIONS:1. Aspirin 81 mg once a day 2. Pepcid 20 mg once a day 3. Amlodipine 5 mg once a day 4. Imdur 30 mg once a day 5. Flomax 0.4 mg once a day 6. Lasix 40 mg once a day 7. Metoprolol 25 mg twice a day 8. Hydralazine 100 mg 3 times a day 9. Allopurinol 100 mg once a day 10.Pravastatin 80 mg Once a day During physical exam: GENERAL: A pleasant patient without any distress. VITAL SIGNS: Please see below, weight 285 pounds. HEENT: PERRLA, EOMI.low position of soft palate, Mallapati[] . NECK: Supple. No JVD. LUNGS: Clear to percussion and to auscultation. Good air exchange. No wheezing or rhonchi. HEART: S1, S2 regular. ABDOMEN: Soft and nontender.[] EXTREMITIES: No clubbing or cyanosis. CULLET CRUSHER AND WASHER: Awake, alert, and oriented x3. No focal deficit. Impressions: 1. Obstructive sleep apnea-hypopnea syndrome. Patient demonstrated great compliance with treatment, benefiting from treatment. AHI increased comparing with the previous visit. 2. Obesity, BMI 42.7, patient lost 12 pounds comparing with previous visit. 3. Hypertension. 4. Hyperlipidemia. 5. Status post left knee replacement. 6. History of hypothyroidism. 7. History of anxiety. I changed the regimen of the machine to AutoPAP with a range of the pressure 11 to 14 cm of water. Plan: 1. Continue using PAP equipment every night for the whole night. 2. To change air filter at least 1-2 times per month. 3. PAP unit should stay lower then position of the head. 4. Advised patient to remove all remaining water from humidifier canister daily and make it dry after each usage. Refill canister with fresh distilled water before each usage. 5. Sleep hygiene with regular time in bed for at least 8 hours. 6. Precautions related to driving. No driving if feel any sleepiness. 7. I will maintain prescription for PAP supplies including mask, tube, filters. 8. Watching and continue losing weight. 9. Follow up visit in 6 months or earlier if patient has any problems. Thank you very much for allowing me to participate in the management of your patient. Marco Antonio Myers MD, PhD, FAASM. Diplomat of [place] [employer], Sleep Medicine Board by [place] [employer] Tape Duplicator of [facility] [place] cc: Telly Coffey DO Objective - Vital Signs Vital signs: Vital Signs Temp 97.6 F 01/06/24 10:23 Pulse 62 01/06/24 10:23 Resp 16 01/06/24 10:23 BP 125/64 01/06/24 10:23 Pulse Ox 93 L 01/06/24 10:23 FiO2 Intake & Output 01/05/24 01/06/24 01/06/24 18:59 06:59 18:59 Weight 129.274 kg
== END ==
LOC: 3 N SLEEP 10:09
PROVIDERS: ATTEND Internal Medicine
DX: G47.33 Obstructive sleep apnea (adult) (pediatric) (principal); E66.9 Obesity, unspecified; I10 Essential (primary) hypertension; E78.5 Hyperlipidemia, unspecified; E03.9 Hypothyroidism, unspecified; Z87.891 Personal history of nicotine dependence; Z79.890 Hormone replacement therapy; Z79.899 Other long term (current) drug therapy; Z68.41 Body mass index [BMI] 40.0-44.9, adult; Z99.89 Dependence on other enabling machines and devices; Z96.652 Presence of left artificial knee joint; Z86.59 Personal history of other mental and behavioral disorders
CPT/HCPCS: 99212

== ENCOUNTER → 2024-01-21 | Outpatient (CLI) | payer MEDICARE, BC ==
--- NOTE | 2024-01-21 15:30 | US ---
EXAMINATION TYPE: US thyroid st tissue head/neck DATE OF EXAM: 01/21/2024 COMPARISON: NONE CLINICAL INDICATION: Male, 88 years old with history of R22.1 LOCALIZED SWELLING, MASS AND LUMP, NECK ; Infection to right face in may / june - had to stop antibiotics due to BA; swelling/lump t hat changes in size right submandibular area since. TECHNIQUE: FINDINGS: Heterogenous, hypoechoic, vascular, circumscribed lesion at patients area of concern= 3.0 x 1.6 x 3.2 cm IMPRESSION: 1. Solid lesion right neck at palpable abnormality could be a lymph node. Consider additional evaluat ion with contrast CT neck
== END | disposition home or self-care (01) ==
LOC: RADUSWWP 14:28
PROVIDERS: ATTEND Family Medicine
DX: R22.1 Localized swelling, mass and lump, neck (principal)
CPT/HCPCS: 76536

== ENCOUNTER → 2024-02-04 | Outpatient (CLI) | payer MEDICARE, BC ==
[2024-02-04 08:02] LABS: African American GFR (CKD) 46 (>60 ml/min/1.73 sqM); Blood Urea Nitrogen 44 mg/dL (9-20); Non-African American GFR(CKD) 40 (>60 ml/min/1.73 sqM)
--- NOTE | 2024-02-04 09:29 | CT ---
EXAMINATION TYPE: CT soft tissue neck w con CT DLP: 825.2 mGycm, Automated exposure control for dose reduction was used. DATE OF EXAM: 02/04/2024 8:24 AM COMPARISON: 07/28/2023. CLINICAL INDICATION:Male, 88 years old with history of R59.0 LOCALIZED ENLARGED LYMPH NODES; PHH, rig ht sided neck pain TECHNIQUE: Standard enhanced CT of the neck. Axial sections with coronal and sagittal reformats were obtained. Contrast used:77 mL of Isovue 300 with IV Contrast, (None if empty) Oral contrast used: (None if empty) FINDINGS: Brain: Visualized portions are grossly unremarkable. Orbits: Unremarkable Sinuses: Grossly unremarkable. Spaces of the neck: Clear and symmetric. Musculoskeletal: No acute osseous pathology. Lymph nodes: Enlarged right neck lesion measuring up to 19 mm in short axis just below the right paro tid gland was seen on 07/28/2023 exam is higher density possibly vascular structure given similar att enuation to venous vessels. Vascular structures: Visualized major arteries are patent without evidence of aneurysm. Thoracic Inlet/airway: Airway is patent. Mild emphysema changes in the lung apices. Loculated fluid i n the left main fissure and small left pleural effusion. Soft tissues/Thyroid: Thyroid and remainder of the soft tissues are unremarkable. Other: none. IMPRESSION 1. Enlarged right neck lymph node measuring up to 19 mm in short axis stable compared to 07/28/2023. Finding could represent a vascular structure given similar attenuation to venous vessels which are i n close proximity to this lesion. Consider ultrasound evaluation possible tissue sampling. No other e nlarged lesions are seen or evidence for lymphadenopathy. 2. Small left pleural effusion with loculated fluid in the fissure.
== END | disposition home or self-care (01) ==
LOC: RADCTMAIN 07:06
PROVIDERS: ATTEND Family Medicine
DX: J90 Pleural effusion, not elsewhere classified (principal); R59.0 Localized enlarged lymph nodes
CPT/HCPCS: 82565; 84520; 70491; 36415; Q9967

== ENCOUNTER 2024-03-01 07:47 | Day surgery (SDC) | payer MEDICARE, BC ==
[2024-03-01 08:18] VITALS: PULSE 80; RESP 12; TEMP 98
[2024-03-01 09:44] VITALS: BP 154/78
--- NOTE | 2024-03-01 10:10 | US ---
ULTRASOUND GUIDED CORE BIOPSY RIGHT NECK MASS: CLINICAL HISTORY: Right neck mass FINDINGS: The procedure was explained to the patient. The risks, complications, benefits and alternatives were discussed and any questions were answered. Informed consent was obtained. Patient was placed supin e on the ultrasound table and prepped and draped in the usual sterile fashion. Utilizing a 18 gauge needle, two passes were made into the right neck mass. Patient was stable throughout the procedure. Pathology is pending. All elements of maximal barrier technique were utilized. IMPRESSION: 1. Successful ultrasound guided core biopsy right neck mass.
== END 2024-03-01 09:30 | disposition home or self-care (01) ==
LOC: RADPROMAIN 07:47
PROVIDERS: ATTEND Otolaryngology
DX: D11.9 Benign neoplasm of major salivary gland, unspecified (principal)
CPT/HCPCS: 38505; 76942; 88305

== ENCOUNTER → 2024-08-17 | Outpatient (CLI) | payer MEDICARE, BC ==
[2024-08-17 10:20] VITALS: BP 163/64; PULSE 60; RESP 18; TEMP 97.7
--- NOTE | 2024-08-17 11:19 | P.PROGSL ---
Subjective DATE: 08/17/2024 FOLLOW UP VISIT. Patient with obstructive sleep apnea hypopnea syndrome return to sleep center for follow-up visit. Information from previous visit have been reviewed. Patient is using PAP equipment every night for the whole night, getting PAP supplies in time. The patient does not have significant problems with the mask, PAP unit and humidification. [place] sleepiness scale is 4, which is normal. I checked information from PAP unit. PAP unit pressure 11-14, average 13.2 cm H2O. Usage is 100% for more then 4 hours, average 11.8 hours per night. Leak is 16 l/m, which is in acceptable range. Apnea Hypopnea Index is 1.0, which is normal. MEDICATIONS have been reviewed, please see below. During physical exam: GENERAL: A pleasant patient without any distress. VITAL SIGNS: Please see below, weight is 299 lbs. HEENT: PERRLA, EOMI.low position of soft palate, Mallapati 3. NECK: Supple. No JVD. LUNGS: Clear to percussion and to auscultation. Good air exchange. No wheezing or rhonchi. HEART: S1, S2 regular. ABDOMEN: Soft and nontender. Obese EXTREMITIES: No clubbing or cyanosis. STRATEGIC CLIENT EXECUTIVE: Awake, alert, and oriented x3. No focal deficit. Impressions: 1. Obstructive sleep apnea-hypopnea syndrome. Patient demonstrated great compliance with treatment, benefiting from treatment. 2. Obesity, BMI 44.9, patient increased weight and 14 pounds comparing with previous visit. 3. Hypertension. 4. Hyperlipidemia. 5. History of hypothyroidism. 6. History of anxiety. 7. Status post left knee replacement. Plan: 1. Continue using PAP equipment every night for the whole night. 2. Sleep hygiene with regular time in bed for at least 7.5-8 hours 3. PAP unit should stay lower then position of the head. 4. Advised patient to remove all remaining water from humidifier canister daily and make it dry after each usage. Refill canister with fresh distilled water before each usage. 5. Watching and losing weight. 6. Precautions related to driving. No driving if feel any sleepiness. 7. I will maintain prescription for PAP supplies including mask, tube, filters. 8. Follow up visit in 8 months or earlier if patient has any problems. Thank you very much for allowing me to participate in the management of your patient. Marco Antonio yMers MD, PhD, FAASM. Diplomat of [place] [employer], Sleep Medicine Board by [place] [employer] Hardware Trainer of [facility] [place] Objective - Vital Signs Vital Signs: Vital Signs Temp 97.7 F 08/17/24 10:19 Pulse 60 08/17/24 10:19 Resp 18 08/17/24 10:19 BP 163/64 08/17/24 10:19 Pulse Ox 94 L 08/17/24 10:19 FiO2 Intake & Output 08/16/24 08/17/24 08/17/24 18:59 06:59 18:59 Weight 135.624 kg Home Medications: Home Medications Medication Instructions Recorded Confirmed Type Pravastatin Sodium [Pravachol] 80 mg PO HS 05/31/14 08/17/24 History amLODIPine [Norvasc] 5 mg PO DAILY 05/31/14 08/17/24 History Aspirin EC [Ecotrin Low Dose] 81 mg PO DAILY 07/28/23 08/17/24 History Levothyroxine Sodium [Synthroid] 50 mcg PO DAILY 07/28/23 08/17/24 History Furosemide [Lasix] 40 mg PO DAILY #30 tab 08/03/23 08/17/24 Rx Metoprolol Tartrate [Lopressor] 25 mg PO BID #60 tab 08/03/23 08/17/24 Rx Sodium Bicarbonate Tab 650 mg PO TID #90 tab 08/03/23 03/01/24 Rx Tamsulosin [Flomax] 0.4 mg PO PC-[id number] 30 Days #30 cap 08/03/23 08/17/24 Rx hydrALAZINE HCL [Apresoline] 100 mg PO TID 30 Days #180 tab 08/03/23 03/01/24 Rx Acetaminophen Tab [Tylenol] 1,300 mg PO TID 02/22/24 08/17/24 History Furosemide [Lasix] 40 - 60 mg PO DIRECTED 02/22/24 08/17/24 History Cholecalciferol (Vitamin D3) See Rx Instructions .ROUTE .COMPLEX 08/17/24 08/17/24 History [Vitamin D3 (50 Mcg = 2000 Iu)] Famotidine [Pepcid] 20 mg PO DAILY 08/17/24 08/17/24 History Isosorbide Mononitrate ER [Imdur] 30 mg PO DAILY 08/17/24 08/17/24 History allopurinoL 100 mg PO DAILY 08/17/24 08/17/24 History calcitrioL [Rocaltrol] 0.25 mg PO WEEKLY 08/17/24 08/17/24 History hydrALAZINE HCL 50 mg PO BID 08/17/24 08/17/24 History hydrALAZINE HCL [Apresoline] 100 mg PO DAILY 08/17/24 08/17/24 History
== END ==
LOC: 3 N SLEEP 09:58
PROVIDERS: ATTEND Internal Medicine
DX: G47.33 Obstructive sleep apnea (adult) (pediatric) (principal); E66.9 Obesity, unspecified; I10 Essential (primary) hypertension; E78.5 Hyperlipidemia, unspecified; F41.9 Anxiety disorder, unspecified; E03.9 Hypothyroidism, unspecified; Z96.652 Presence of left artificial knee joint; Z99.89 Dependence on other enabling machines and devices; Z68.41 Body mass index [BMI] 40.0-44.9, adult; Z88.2 Allergy status to sulfonamides; Z88.1 Allergy status to other antibiotic agents; Z79.899 Other long term (current) drug therapy; Z79.890 Hormone replacement therapy; Z87.891 Personal history of nicotine dependence
CPT/HCPCS: 99212